=== PATIENT | male | born 1950 | race Caucasian/White ===

== ENCOUNTER → 2020-02-26 08:20 | Outpatient (BNVA) | payer MEDICARE, OTHER, SELFPAY | PROVIDERS: PCP Internal Medicine; Visit Provider Anesthesiology | DX: G89.4 Chronic pain syndrome (principal); M75.121 Complete rotator cuff tear or rupture of right shoulder, not specified as traumatic; M19.011 Primary osteoarthritis, right shoulder; M47.812 Spondylosis without myelopathy or radiculopathy, cervical region; Z79.891 Long term (current) use of opiate analgesic | CPT/HCPCS: 99212 ==

== ENCOUNTER 2020-05-29 08:06 | Outpatient (REF) | payer MEDICARE, OTHER, SELFPAY ==
[2020-05-29 11:42] LABS: Alanine Aminotransferase 31 U/L (0-40); Anion Gap 15 (12-20); Aspartate Amino Transferase 24 U/L (5-37); Blood Urea Nitrogen 21 mg/dL (9-16); Calcium 9.1 mg/dL (8.4-10.2); Carbon Dioxide 27 mmol/L (22-29); Chloride 105 mmol/L (96-108); Cholesterol 148 mg/dL; Estimated Glomerular Filt Rate > 60; Glucose Fasting 89 mg/dL (60-99); HDL Cholesterol 46 mg/dL; LDL Cholesterol Calculated 71 mg/dl; Potassium 4.1 mmol/L (3.3-5.1); Sodium 143 mmol/L (135-145); Triglycerides 155 mg/dL
[2020-05-29 12:09] LABS: Free T4 (Free Thyroxine) 0.97 ng/dL (0.71-1.85); Thyroid Stimulating Hormone 2.42 uIU/mL (0.32-4.0)
== END 2020-05-29 08:07 | disposition home or self-care (01) ==
LOC: HO.HMGCLDS 08:06
PROVIDERS: PCP Internal Medicine; Visit Provider Internal Medicine
DX: E78.5 Hyperlipidemia, unspecified (principal); I10 Essential (primary) hypertension; E03.9 Hypothyroidism, unspecified
CPT/HCPCS: 36415; 80048; 80061; 84439; 84443; 84450; 84460

== ENCOUNTER 2020-12-09 06:59 | Outpatient (REF) | payer MEDICARE, OTHER, SELFPAY ==
[2020-12-09 11:40] LABS: Alanine Aminotransferase 31 U/L (0-40); Anion Gap 11 (12-20); Aspartate Amino Transferase 23 U/L (5-37); Blood Urea Nitrogen 22 mg/dL (9-16); Calcium 9.3 mg/dL (8.4-10.2); Carbon Dioxide 27 mmol/L (22-29); Chloride 108 mmol/L (96-108); Cholesterol 157 mg/dL; Estimated Glomerular Filt Rate > 60; Glucose Fasting 104 mg/dL (60-99); HDL Cholesterol 50 mg/dL; LDL Cholesterol Calculated 83 mg/dl; Potassium 4.2 mmol/L (3.3-5.1); Sodium 142 mmol/L (135-145); Triglycerides 123 mg/dL
[2020-12-09 12:03] LABS: Free T4 (Free Thyroxine) 0.88 ng/dL (0.71-1.85); Thyroid Stimulating Hormone 3.14 uIU/mL (0.32-4.0); Vitamin D 25-OH Total 35.9 ng/mL (>30)
== END 2020-12-09 07:00 | disposition home or self-care (01) ==
LOC: HO.HMGCLDS 06:59
PROVIDERS: PCP Internal Medicine; Visit Provider Internal Medicine
DX: E03.9 Hypothyroidism, unspecified (principal); E78.5 Hyperlipidemia, unspecified; I10 Essential (primary) hypertension; M19.011 Primary osteoarthritis, right shoulder; M47.812 Spondylosis without myelopathy or radiculopathy, cervical region; M75.121 Complete rotator cuff tear or rupture of right shoulder, not specified as traumatic
CPT/HCPCS: 36415; 80048; 80061; 82306; 84439; 84443; 84450; 84460

== ENCOUNTER 2021-02-16 07:39 | Outpatient (REF) | payer MEDICARE, OTHER, SELFPAY ==
[2021-02-16 12:36] LABS: Free T4 (Free Thyroxine) 1.01 ng/dL (0.71-1.85); Thyroid Stimulating Hormone 1.27 uIU/mL (0.32-4.0)
[2021-02-17 18:18] LABS: Thyroid Peroxidase Antibodies 2 IU/mL (<9)
== END 2021-02-16 07:40 | disposition home or self-care (01) ==
LOC: HO.HMGCLDS 07:39
PROVIDERS: PCP Internal Medicine; Visit Provider Internal Medicine
DX: E03.9 Hypothyroidism, unspecified (principal)
CPT/HCPCS: 36415; 84439; 84443; 86376

== ENCOUNTER 2021-02-24 13:43 | Outpatient (REF) | payer MEDICARE, OTHER, SELFPAY ==
--- NOTE | ~2021-02-24 | US_ITS ---
EXAMINATION: US RETROPERITONEAL LIMITED (RENAL ONLY) CLINICAL INFORMATION: Cyst of left kidney, acquired. COMPARISON: CT abdomen and pelvis 12/11/2019 TECHNIQUE: Routine dean-scale imaging of kidneys is performed. FINDINGS: RIGHT KIDNEY: 11.1 x 4.8 x 6.2 cm (SAG x AP x TRV). The kidney is normal in size, contour, and echogenicity. Renal cortical thickness is normal. No calculi or focal parenchymal lesions. No hydronephrosis. There is anechoic cyst in the lower pole with septation measuring 3.5 x 3.8 x 3.0 cm suggestive of complex cyst. There is adjacent simple cyst measuring 2.5 x 2.8 x 2.4 cm. LEFT KIDNEY: 11.0 x 4.7 x 5.4 cm. cm (SAG x AP x TRV). The kidney is normal in size, contour, and echogenicity. Renal cortical thickness is normal. No calculi or focal parenchymal lesions. No hydronephrosis. Previously seen cyst is not visualized at this time. US/US renal BI IMPRESSION: Larger complex septated cyst and a smaller simple cyst in the lower pole right kidney. They were visualized on the previous CT abdomen exam 12/11/2019. The complex cyst appears slightly larger. There are no echogenic stones or hydronephrosis in either kidney.
== END 2021-02-24 13:44 | disposition home or self-care (01) ==
LOC: HO.HMGCX 13:43
PROVIDERS: PCP Internal Medicine; Visit Provider Urology
DX: N28.1 Cyst of kidney, acquired (principal)
CPT/HCPCS: 76775

== ENCOUNTER → 2021-03-17 12:58 | Outpatient (BNVA) | payer MEDICARE, OTHER, SELFPAY | PROVIDERS: PCP Internal Medicine; Visit Provider Urology | DX: N40.1 Benign prostatic hyperplasia with lower urinary tract symptoms (principal); R39.14 Feeling of incomplete bladder emptying; N13.8 Other obstructive and reflux uropathy; N28.1 Cyst of kidney, acquired | CPT/HCPCS: 51798; 99212 ==

== ENCOUNTER 2021-04-05 16:58 | Outpatient (REF) | payer MEDICARE, OTHER, SELFPAY ==
--- NOTE | ~2021-04-05 | XR_ITS ---
EXAMINATION: XR CHEST CLINICAL INFORMATION: Cough. COMPARISON: None TECHNIQUE: 2 views of the chest were obtained. FINDINGS: Large rounded masslike density in the anterior left chest. This measures about 10 cm superior-inferior. This partially silhouettes the left cardiac heart border. CT chest with contrast recommended for follow-up. Right lung is normally aerated. No pleural effusion or pneumothorax. No pulmonary vascular congestion. XR/XR chest 2V IMPRESSION: Large rounded masslike density anterior left chest. CT chest with contrast recommended for follow-up.
[2021-04-05 19:50] LABS: Influenza A PCR NEGATIVE (Negative); Influenza B PCR NEGATIVE (Negative); Resp Syncy Virus RNA Qual PCR POSITIVE (Negative); SARS COV2 PCR INHOUSE NEGATIVE (Negative)
== END 2021-04-05 16:59 | disposition home or self-care (01) ==
LOC: HO.HMGCX 16:58
PROVIDERS: PCP Internal Medicine; Visit Provider Physician Assistant Medical
DX: Z20.822 Contact with and (suspected) exposure to COVID-19 (principal); R05.9 Cough, unspecified; J06.9 Acute upper respiratory infection, unspecified
CPT/HCPCS: 0241U; 71046

== ENCOUNTER 2021-05-17 10:08 | Outpatient (REF) | payer MEDICARE, OTHER, SELFPAY ==
[2021-05-17 11:54] LABS: Cholesterol 141 mg/dL; HDL Cholesterol 43 mg/dL; LDL Cholesterol Calculated 67 mg/dl; Triglycerides 158 mg/dL
[2021-05-17 12:11] LABS: Free T4 (Free Thyroxine) 1.16 ng/dL (0.71-1.85)
== END 2021-05-17 10:09 | disposition home or self-care (01) ==
LOC: HO.HMGCLDS 10:08
PROVIDERS: Visit Provider Internal Medicine
DX: E78.5 Hyperlipidemia, unspecified (principal); E03.9 Hypothyroidism, unspecified; I10 Essential (primary) hypertension
CPT/HCPCS: 36415; 80061; 84439; 84443

== ENCOUNTER 2021-12-08 06:41 | Outpatient (REF) | payer MEDICARE, OTHER, SELFPAY ==
[2021-12-08 11:38] LABS: Alanine Aminotransferase 21 U/L (0-40); Anion Gap 15 (12-20); Aspartate Amino Transferase 26 U/L (5-37); Blood Urea Nitrogen 17 mg/dL (9-16); Calcium 9.3 mg/dL (8.4-10.2); Carbon Dioxide 26 mmol/L (22-29); Chloride 106 mmol/L (96-108); Cholesterol 187 mg/dL; Estimated Glomerular Filt Rate > 60; Glucose Fasting 105 mg/dL (60-99); HDL Cholesterol 52 mg/dL; LDL Cholesterol Calculated 109 mg/dl; Potassium 4.6 mmol/L (3.3-5.1); Sodium 142 mmol/L (135-145); Triglycerides 132 mg/dL
[2021-12-08 12:10] LABS: Free T4 (Free Thyroxine) 0.96 ng/dL (0.71-1.85); Vitamin D 25-OH Total 25.2 ng/mL (>30)
== END 2021-12-08 06:42 | disposition home or self-care (01) ==
LOC: HO.HMGCLDS 06:41
PROVIDERS: PCP Internal Medicine; Visit Provider Internal Medicine
DX: E03.9 Hypothyroidism, unspecified (principal); E78.5 Hyperlipidemia, unspecified; I10 Essential (primary) hypertension
CPT/HCPCS: 36415; 80048; 80061; 82306; 84439; 84443; 84450; 84460

== ENCOUNTER → 2022-03-16 10:31 | Outpatient (BNVA) | payer MEDICARE, OTHER, SELFPAY | PROVIDERS: PCP Internal Medicine; Visit Provider Urology | DX: N40.1 Benign prostatic hyperplasia with lower urinary tract symptoms (principal); R39.14 Feeling of incomplete bladder emptying; N28.1 Cyst of kidney, acquired | CPT/HCPCS: 51798; 99212 ==

== ENCOUNTER 2022-07-04 14:18 | Outpatient (REF) | payer MEDICARE, OTHER, SELFPAY ==
[2022-07-04 17:22] LABS: Prostate Specific Antigen 3.07 ng/mL (<0.05-4.0)
== END 2022-07-04 14:19 | disposition home or self-care (01) ==
LOC: HO.HMGCLDS 14:18
PROVIDERS: PCP Internal Medicine; Visit Provider Urology
DX: R97.20 Elevated prostate specific antigen [PSA] (principal); Z12.5 Encounter for screening for malignant neoplasm of prostate
CPT/HCPCS: 36415; 84153

== ENCOUNTER → 2022-07-15 10:13 | Outpatient (BNVA) | payer MEDICARE, OTHER, SELFPAY | PROVIDERS: PCP Internal Medicine; Visit Provider Urology | DX: R97.20 Elevated prostate specific antigen [PSA] (principal) | CPT/HCPCS: Q3014 ==

== ENCOUNTER 2022-12-29 08:33 | Outpatient (REF) | payer MEDICARE, OTHER, SELFPAY ==
[2022-12-29 12:26] LABS: Prostate Specific Antigen 3.01 ng/mL (<0.05-4.0)
== END 2022-12-29 08:34 | disposition home or self-care (01) ==
LOC: HO.HMGCLDS 08:33
PROVIDERS: PCP Internal Medicine; Visit Provider Urology
DX: R97.20 Elevated prostate specific antigen [PSA] (principal); Z12.5 Encounter for screening for malignant neoplasm of prostate
CPT/HCPCS: 36415; 84153

== ENCOUNTER 2023-01-12 11:23 | Outpatient (AMB) | payer MEDICARE, OTHER, SELFPAY ==
--- NOTE | 2023-01-12 11:52 | MHC.OFFVIS ---
Intake Intake Visit Reasons: 6m/PSA(Elevated psa/BPH)(set) Intake Note: Patient is present for PSA Follow Up Results: 07/04/22: PSA: 3.07 Urology Med: Finasteride, Tamsulosin Antibiotic Allergy: Amoxicillin Blood Thinner: None PVR:0 Allergies amoxicillin [AMOXICILLIN] Allergy (Mild, Verified 01/12/23 11:53) HIVES, hiives Medication List - Last Reconciled 01/12/23 by Raghav Atkinson MD amlodipine 5 mg PO DAILY carvedilol 6.25 mg PO BID finasteride 5 mg PO DAILY 90 days immune globul G-gly-IgA avg 46 20 gram/200 mL (10 %) (Gamunex-C) mL IV levothyroxine 150 mcg PO DAILY lifitegrast 5% (Xiidra) 1 drp ophthalmic (eye) BID lisinopril 40 mg PO DAILY lorazepam 0.5 mg PO DAILY PRN oxycodone 5 mg PO BID PRN simvastatin 20 mg PO BEDTIME tamsulosin 0.4 mg PO DAILY valacyclovir 500 mg PO BID HPI HPI Comments History of Present Illness Details Vineet is a very pleasant male. He is a patient of Dr Dunlap. He is seen for the following urologic conditions. - renal cyst - lower urinary tract symptoms PSA stabilized 3.0 Continue 6 month follow-up Happy with urinary performance - minimal nocturia, minimal urge, effective stream Lower Urinary Tract Symptoms:? Helpful with alpha-riana and finasteride ? Current visit is for?further evaluation of, lower urinary tract symptoms, predominate obstructive symptoms.? Current treatment includes?fluid restriction, finasteride, tamsulosin ? Prostate Symptom Score?05/30 , Moderate (-), Bother 3.? Symptoms include?05/30 , incomplete emptying, weak stream, nocturia (>2), and are progressing.? PSA?03/28 4.04, 03/01 5.8, 07/31 3.1, 12/31 3.0 - CATIA 2+ soft ? Testing at next visit will include?bladder scan in PSA Renal lesion:? Brother renal ca age 72 ?[address] scan ?Cyst stable in kidney ?Enlarged prostate. ? They present for ?evaluation of renal mass, right side, complex cyst.? The renal mass was diagnosed?incidentally, during evaluation for, GI symptoms ? Imaging included?03/28 , a CT (computed tomography) scan of the abdomen/pelvis, showing class II cyst(s), showing class II cyst(s), 3.1-5.9 in size right side ?11/27 , a CT (computed tomography) scan of the abdomen/pelvis cyst remains stable - 02/28 renal ultrasound 3 cm complex right renal cyst, 3 cm adjacent cyst. 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 of right shoulder Complete rotator cuff tear or rupture of right shoulder, not specified as traumatic Surgical History History of tonsillectomy History of hernia repair Family History Father Medical history non-contributory Mother Medical history non-contributory Social History Housing: House Alcohol intake: never Patient Tobacco Use Status: Former Tobacco user e-Cigarette/Vaping Use: Never Used service: No Current occupational status: retired Review of Systems Const Denies chills and Denies fever(s) Card Reports no additional complaints and Denies syncope Resp Denies cough GI Denies abdominal pain and Denies heartburn Reports as per HPI and Denies change in libido Neuro Denies syncope Psych Denies change in libido Endo Denies change in libido Physical Exam Const General: cooperative, healthy appearing, comfortable and no acute distress Orientation/consciousness: patient oriented x3 HEENT Face and sinus: Yes normal facial exam Mouth: moist mucous membranes Neck Neck: Yes normal visual inspection, Yes full ROM and Yes trachea midline Chest Chest palpation & inspection: normal inspection of the chest Resp Effort & Inspection: normal respiratory effort, able to speak in complete sentences and no respiratory distress GI Inspection: Yes normal to inspection Back/Spine/Pelvis Cervical Spine: normal cervical lordosis Thoracic/Lumbar Spine: thoracic and lumbar spine normal to inspection Skin General skin exam: no rashes or lesions noted Neuro General: patient oriented x3, gait normal, tone normal and moves all extremities Extrem General: Yes normal to inspection and Yes capillary refill normal Office Procedures Post Void Residual Post Residual Void Post Void Residual (PVR): 0 [id number] Void Residual by ultrasound Results AMB Urinalysis, Automated UA Leukoctes 0 Marta/uL Last Edit by DONI Pollack on 01/12/23 11:54 UA Nitrite Negative Last Edit by DONI Pollack on 01/12/23 11:54 UA Urobilinogen 0.2 mg/dL Last Edit by DONI Pollack on 01/12/23 11:54 UA Protein 0 mg/dL Last Edit by DONI Pollack on 01/12/23 11:54 UA pH 5.5 Last Edit by DONI Pollack on 01/12/23 11:54 UA Blood 0 Nicola/uL Last Edit by DONI Pollack on 01/12/23 11:54 UA Specific [place] 1.025 Last Edit by DONI Pollack on 01/12/23 11:54 UA Ketone Negative Last Edit by DONI Pollack on 01/12/23 11:54 UA Bilirubin 0 mg/dL Last Edit by DONI Pollack on 01/12/23 11:54 UA Glucose 0 mg/dL Last Edit by DONI Pollack on 01/12/23 11:54 Results Reviewed Results Reviewed: Laboratory Last Values Urine pH (Auto) 5.5 01/12/23 11:53 Specific [place] (Auto) 1.025 01/12/23 11:53 Urine Protein (Auto) 0 mg/dL 01/12/23 11:53 Glucose (UA)(Auto) 0 mg/dL 01/12/23 11:53 Urine Ketones (Auto) Negative 01/12/23 11:53 Urine Blood (Auto) 0 Nicola/uL 01/12/23 11:53 Urine Nitrite (Auto) Negative 01/12/23 11:53 Urine Bilirubin (Auto) 0 mg/dL 01/12/23 11:53 Urine Urobilinogen (Auto) 0.2 mg/dL 01/12/23 11:53 Leukocyte Esterase (Auto) 0 Marta/uL 01/12/23 11:53 Assessment & Plan Assessment & Plan (1) Elevated PSA: Code(s): R97.20 - Elevated prostate specific antigen [PSA] (2) Benign prostatic hyperplasia with lower urinary tract symptoms: Code(s): N40.1 - Benign prostatic hyperplasia with lower urinary tract symptoms Qualifiers: Lower urinary tract symptom detail: incomplete bladder emptying Qualified Code(s): N40.1 - Benign prostatic hyperplasia with lower urinary tract symptoms; R39.14 - Feeling of incomplete bladder emptying Plan Six month follow-up Orders: Orders AMB Urinalysis Automated Today Z13.9 - Encounter for screening, unspecified Prostate Specific Antigen 6 Months R97.20 - Elevated prostate specific antigen [PSA] AMB Post Void Residual by ultrasound Today N39.8 - Other specified disorders of urinary system Patient Instructions: Imaging studies, laboratory and physical exam results were discussed and reviewed in detail. No major barriers to patient understanding were identified. An opportunity to ask questions regarding the treatment plan was provided. All questions were answered. The patient expressed understanding and agreement with the above treatment plan. The patient is aware they should contact our office by phone for worsening of their current condition or the appearance of new urologic symptoms. Compliance is encouraged with any medications and followup testing that is ordered. It is a privilege to participate in the urologic care of your patient. If you have any questions or concerns regarding treatment for the above conditions, or other urologic issues, please do not hesitate to contact me. The office telephone contact is [phone]. This note is constructed using voice recognition software. While every effort has been made to ensure accuracy croze cutter errors may have been included. Yours sincerely, Dr Raghav Atkinson MD, [facility] - Urology Providers of Expert, Compassionate Care for the Genitourinary System Coding Level of Care Code Est Pt Level 3 (65455) Diagnoses Elevated PSA R97.20 Benign prostatic hyperplasia with incomplete bladder emptying N40.1; R39.14 Lower urinary tract symptom detail: incomplete bladder emptying CPT Codes Post Residual Void - PVR CPT Code: 34559-Nmmk Void Residual by ultrasound ([id number])
== END 2023-01-12 12:17 | disposition home or self-care (01) ==
PROVIDERS: PCP Internal Medicine; Visit Provider Urology
DX: R97.20 Elevated prostate specific antigen [PSA] (principal); N40.1 Benign prostatic hyperplasia with lower urinary tract symptoms; R39.14 Feeling of incomplete bladder emptying; Z13.9 Encounter for screening, unspecified
CPT/HCPCS: 99213

== ENCOUNTER → 2023-01-12 11:23 | Outpatient (BNVA) | payer MEDICARE, OTHER, SELFPAY | PROVIDERS: Visit Provider Urology | DX: R97.20 Elevated prostate specific antigen [PSA] (principal); N40.1 Benign prostatic hyperplasia with lower urinary tract symptoms; R39.14 Feeling of incomplete bladder emptying; N28.1 Cyst of kidney, acquired; Z79.899 Other long term (current) drug therapy | CPT/HCPCS: 51798; 81003; 99212 ==

== ENCOUNTER 2023-03-10 08:07 | Outpatient (AMB) | payer MEDICARE, OTHER, SELFPAY ==
--- NOTE | 2023-03-10 09:04 | AM.OFFWIN_ITS ---
Intake Vital Signs 03/10/23 09:09 Weight 206 lb BP 130/70 Blood Pressure Location Rt brachial Position Sitting Pulse 97 Pulse Source Pulse Oximeter Temp 96.9 F Temp Source Temporal Artery Scan Pulse Oximetry (%) 100 Oxygen Delivery Method Room Air Intake Visit Reasons: EP, chest congestion, cough (masked) Intake Note: Pt is here c/o chest congestion and cough for two weeks. Patient Tobacco Use Status: Former Tobacco user Allergies amoxicillin [AMOXICILLIN] Allergy (Mild, Verified 03/10/23 09:04) HIVES, hiives Do you need a note to return to daycare/school/sports/work: No HPI HPI Comments History of Present Illness Details This is a 72-year-old male who presents to the office today for sick visit. Patient complaining of chest congestion and cough x1 week in the setting of viral URI symptoms x2 weeks. patient states he started to develop viral URI symptoms such as congestion, rhinorrhea, headaches, sore throat, and myalgias. He then started to develop chest congestion and a productive cough with yellow sputum about 1 week ago. He denies any significant shortness of breath. He denies any chest pain. He denies any abdominal pain or nausea/vomiting / diarrhea. 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 of right shoulder Complete rotator cuff tear or rupture of right shoulder, not specified as traumatic Surgical History History of tonsillectomy History of hernia repair Family History Father Medical history non-contributory Mother Medical history non-contributory Social History Housing: House Alcohol intake: never Patient Tobacco Use Status: Former Tobacco user e-Cigarette/Vaping Use: Never Used service: No Current occupational status: retired Review of Systems Const All systems reviewed & are unremarkable except as noted in HPI and below Reports no additional complaints Eyes Reports no additional complaints ENT Reports no additional complaints Card Reports no additional complaints Resp Reports no additional complaints GI Reports no additional complaints Reports no additional complaints Musc Reports no additional complaints Skin/Breast Reports system reviewed and no additional complaints, except as documented Neuro Reports no additional complaints Psych Reports no additional complaints Endo Reports no additional complaints Gaurav/Lymph Reports no additional complaints Aller/Immun Reports no additional complaints Physical Exam Vital Signs: Last Vital Signs Temp 96.9 F 03/10/23 09:09 Pulse 97 03/10/23 09:09 BP 130/70 03/10/23 09:09 Pulse Ox 100 03/10/23 09:09 Oxygen Delivery Method Room Air 03/10/23 09:09 Const Other: Vital signs reviewed. Constitutional: Non-toxic appearing. No acute distress. Well-developed and well-nourished. HEENT: Normocephalic and atraumatic. Tympanic membranes without erythema, edema, or bulging bilaterally. External auditory canals without erythema or edema bilaterally. Moist mucous membranes. No pharyngeal erythema or exudates. Skin: Warm and dry. No rashes or lesions noted. Neck: Full and painless range of motion. No cervical lymphadenopathy. Cardio: Regular rate and rhythm. No murmurs, gallops, or rubs. No lower extremity edema. No JVD. Pulmonary: No respiratory distress. No accessory muscle usage. Clear to aus cultation bilaterally without wheezing, crackles, or rhonchi. Gastrointestinal: Soft, nontender, and nondistended in all 4 quadrants. Normoactive bowel sounds in all 4 quadrants. Genitourinary: No CVA tenderness. Musculoskeletal: Normal range of motion in joints throughout the body. No deformity or other signs of injury. Neuro: Alert and oriented x4. Cranial nerves 2-12 grossly intact. No focal deficits appreciated. Psych: Normal mood and affect. Assessment & Plan Assessment & Plan (1) Viral URI with cough: Code(s): J06.9 - Acute upper respiratory infection, unspecified Plan: This is a 72-year-old male who presented to the office complaining of viral URI symptoms with chest congestion and cough x 2 weeks. Patient presenting with signs and symptoms most consistent with acute respiratory tract infection. Recommended symptomatic management including rest, increased fluids, advil/tylenol for pain/fever as long as no medical contraindications, mucinex, and over the counter throat lozenges/decongestants. Given the patient is immunosuppressed and receives IVIG infusions, I have made the decision to treat with p.o. azithromycin 500 mg today followed by 250 mg daily x4 days. Patient was offered a chest x-ray prior to antibiotic administration; however, he states he is due for a CT chest in less than 1 month and would like to avoid the radiation if possible. I believe that treating with antibiotics is feasible in this case given productive cough with yellow sputum and immunosuppressed state. Patient does not have any expiratory wheezing to suggest acute bronchitis and he denies any shortness of breath. I do not believe that steroids are warranted at this time. Patient advised to follow up here or go to the emergency room for worsening/persistent symptoms. Patient verbalized understanding and is agreeable with the plan. Coding Level of Care Code Est Pt Level 3 (54595) Diagnoses Viral URI with cough J06.9
[2023-03-10 09:09] VITALS: BP 130/70; PULSE 97; TEMP 36.1; O2SAT 100
== END 2023-03-10 09:29 | disposition home or self-care (01) ==
PROVIDERS: PCP Internal Medicine; Visit Provider Physician Assistant Medical
DX: J06.9 Acute upper respiratory infection, unspecified (principal)
CPT/HCPCS: 99213

== ENCOUNTER 2023-06-19 08:07 | Outpatient (AMB) | payer MEDICARE, OTHER, SELFPAY ==
[2023-06-19 08:22] VITALS: BP 160/90; PULSE 104; TEMP 36.8; O2SAT 98; BMI 31.9
--- NOTE | 2023-06-19 08:22 | MHC.OFFWIV ---
Intake Vital Signs 06/19/23 08:22 Height 5 ft 7 in Weight 204 lb BMI 31.9 BP 160/90 H Blood Pressure Location Lt brachial Position Sitting Pulse 104 H Pulse Source Pulse Oximeter Temp 98.3 F Temp Source Oral Pulse Oximetry (%) 98 Intake Visit Reasons: EP ?Sinus Infection Intake Note: pt is here for c/o possible sinus infection Patient Tobacco Use Status: Former Tobacco user Allergies amoxicillin [AMOXICILLIN] Allergy (Mild, Verified 06/19/23 08:22) HIVES, hiives Do you need a note to return to daycare/school/sports/work: No HPI EP ?Sinus Infection HPI Details Patient presents for a sick visit. Reporting symptoms of sinus congestion, sore throat and difficulty swallowing. Low-grade fever. No family member is sick. No recent travel. Patient reports symptoms of malaise and fatigue. Patient had a thymus gland removed 2 years ago. He is on IV IG infusions once a month. [facility] Medical History Vitamin D deficiency Acquired hypogammaglobulinemia Thymoma Good syndrome Renal cyst Benign prostatic hyperplasia with lower urinary tract symptoms Feeling of incomplete bladder emptying Incomplete emptying of bladder Weak urinary stream Dyslipidemia Essential hypertension Acquired hypothyroidism Chronic pain syndrome Spondylosis of cervical spine without myelopathy Osteoarthritis of right shoulder Complete rotator cuff tear or rupture of right shoulder, not specified as traumatic Surgical History History of tonsillectomy History of hernia repair Family History Father Medical history non-contributory Mother Medical history non-contributory Social History Housing: House Alcohol intake: never Patient Tobacco Use Status: Former Tobacco user e-Cigarette/Vaping Use: Never Used service: No Current occupational status: retired Physical Exam Vital Signs: Last Vital Signs Temp 98.3 F 06/19/23 08:22 Pulse 104 H 06/19/23 08:22 BP 160/90 H 06/19/23 08:22 Pulse Ox 98 06/19/23 08:22 BMI result Body Mass Index 31.9 Const General: cooperative and healthy appearing Nutritional Appearance: well nourished Orientation/consciousness: patient oriented x3 Limitations: no limitations HEENT Head: Yes normal to inspection Eyes General: appearance normal, both eyes and all related structures Neck Neck: Yes normal visual inspection Chest Chest palpation & inspection: normal palpation of entire chest wall Resp Effort & Inspection: normal respiratory effort Neuro General: patient oriented x3 Assessment & Plan Assessment & Plan (1) Upper respiratory tract infection: Code(s): J06.9 - Acute upper respiratory infection, unspecified Plan: Antibiotics ordered. Increase fluid intake. Tylenol for aches and pains. If symptoms worsen, follow-up here for a recheck. Coding Level of Care Code Est Pt Level 3 (53396) Diagnoses Upper respiratory tract infection J06.9
== END 2023-06-19 09:33 | disposition home or self-care (01) ==
PROVIDERS: PCP Internal Medicine; Visit Provider Internal Medicine
DX: J06.9 Acute upper respiratory infection, unspecified (principal)
CPT/HCPCS: 99213

== ENCOUNTER 2023-07-04 07:29 | Outpatient (REF) | payer MEDICARE, OTHER, SELFPAY ==
[2023-07-04 13:02] LABS: Prostate Specific Antigen 2.92 ng/mL (<0.05-4.0)
== END 2023-07-04 07:30 | disposition home or self-care (01) ==
LOC: HO.HMGCLDS 07:29
PROVIDERS: PCP Internal Medicine; Visit Provider Urology
DX: Z12.5 Encounter for screening for malignant neoplasm of prostate (principal); R97.20 Elevated prostate specific antigen [PSA]
CPT/HCPCS: 36415; 84153

== ENCOUNTER 2023-07-14 09:12 | Outpatient (AMB) | payer MEDICARE, OTHER, SELFPAY ==
--- NOTE | 2023-07-14 09:12 | A.OFFVIS_ITS ---
Intake Intake Visit Reasons: 6M PSA(set)Confirmed Intake Note: Patient is Present for Telephone Follow Up For Urology Med: Finasteride, Tamsulosin Antibiotic Allergy: Amoxicillin Blood Thinner: None Pharmacy: [facility] Allergies amoxicillin [AMOXICILLIN] Allergy (Mild, Verified 07/14/23 09:16) HIVES, hiives Medication List - Last Reconciled 07/14/23 by Raghav Atkinson MD amlodipine 5 mg PO DAILY azithromycin take 500 mg today (day 1), then 250 mg for 4 days (days 2-5) PO carvedilol 6.25 mg PO BID finasteride 5 mg PO DAILY 90 days immune globul G-gly-IgA avg 46 20 gram/200 mL (10 %) (Gamunex-C) mL IV levothyroxine 150 mcg PO DAILY lisinopril 40 mg PO DAILY lorazepam 0.5 mg PO DAILY PRN oxycodone 5 mg PO BID PRN simvastatin 20 mg PO BEDTIME tamsulosin 0.4 mg PO DAILY valacyclovir 500 mg PO BID HPI HPI Comments History of Present Illness Details Vineet is a very pleasant male. He is a patient of Dr Dunlap. He is seen for the following urologic conditions. - renal cyst - lower urinary tract symptoms Telemedicine Evaluation 15 min Consultation [employer] Video attempted PSA stabilized 3.0 Continue 6 month follow-up Happy with urinary performance - minimal nocturia, minimal urge, effective stream Try coming off tamsulosin Would plan on reducing finasteride in 6 months Lower Urinary Tract Symptoms:? Helpful with alpha-riana and finasteride ? Current visit is for?further evaluation of, lower urinary tract symptoms, predominate obstructive symptoms.? Current treatment includes?fluid restriction, finasteride, tamsulosin ? Prostate Symptom Score?2/20 , Moderate (9-19), Bother 3.? Symptoms include?2/20 , incomplete emptying, weak stream, nocturia (>2), and are progressing.? PSA?03/28 4.04, 03/01 5.8, 07/31 3.1, 12/31 3.0, 07/01 2.9 - CATIA 2+ soft ? Testing at next visit will include?bladder scan in PSA Renal lesion:? Brother renal ca age [address] ?[address] scan ?Cyst stable in kidney ?Enlarged prostate. ? They present for ?evaluation of renal mass, right side, complex cyst.? The renal mass was diagnosed?incidentally, during evaluation for, GI symptoms ? Imaging included?03/28 , a CT (computed tomography) scan of the abdomen/pelvis, showing class II cyst(s), showing class II cyst(s), 3.1-5.9 in size right side ?11/27 , a CT (computed tomography) scan of the abdomen/pelvis cyst remains stable - 02/28 renal ultrasound 3 cm complex right renal cyst, 3 cm adjacent cyst. 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 of right shoulder Complete rotator cuff tear or rupture of right shoulder, not specified as traumatic Surgical History History of tonsillectomy History of hernia repair Family History Father Medical history non-contributory Mother Medical history non-contributory Social History Housing: House Alcohol intake: never Patient Tobacco Use Status: Former Tobacco user e-Cigarette/Vaping Use: Never Used service: No Current occupational status: retired Review of Systems Const All systems reviewed & are unremarkable except as noted in HPI and below Reports no additional complaints Resp Reports no additional complaints GI Reports no additional complaints Reports as per HPI Musc Reports no additional complaints Physical Exam Telemedicine evaluation Appropriate responses Regular breathing rate and rhythm HEENT Head: Yes normal to inspection Ears: hearing grossly normal bilaterally Eyes General: appearance normal, both eyes and all related structures Neck Neck: Yes normal visual inspection Chest Chest palpation & inspection: normal inspection of the chest Resp Effort & Inspection: normal respiratory effort and able to speak in complete sentences Assessment & Plan Assessment & Plan (1) Elevated PSA: Code(s): R97.20 - Elevated prostate specific antigen [PSA] (2) Benign prostatic hyperplasia with lower urinary tract symptoms: Code(s): N40.1 - Benign prostatic hyperplasia with lower urinary tract symptoms Qualifiers: Lower urinary tract symptom detail: incomplete bladder emptying Qualified Code(s): N40.1 - Benign prostatic hyperplasia with lower urinary tract symptoms; R39.14 - Feeling of incomplete bladder emptying Plan Six-month follow-up PSA office Orders: Orders Prostate Specific Antigen 6 Months R97.20 - Elevated prostate specific antigen [PSA] Patient Instructions: Imaging studies, laboratory and physical exam results were discussed and reviewed in detail. No major barriers to patient understanding were identified. An opportunity to ask questions regarding the treatment plan was provided. All questions were answered. The patient expressed understanding and agreement with the above treatment plan. The patient is aware they should contact our office by phone for worsening of their current condition or the appearance of new urologic symptoms. Compliance is encouraged with any medications and followup testing that is ordered. It is a privilege to participate in the urologic care of your patient. If you have any questions or concerns regarding treatment for the above conditions, or other urologic issues, please do not hesitate to contact me. The office telephone contact is [phone]. This note is constructed using voice recognition software. While every effort has been made to ensure accuracy accounts receivable manager errors may have been included. Yours sincerely, Dr Raghav Atkinson MD, [facility] - Urology Providers of Expert, Compassionate Care for the Genitourinary System Telehealth Telehealth Location of provider rendering services: practice address Location of patient: address on file Patient Identification confirmed using: Name, : Yes Telehealth method: video Patient verbally consented to treatment: Yes Patient verbally consented to billing insurance company: Yes Patient informed of any privacy concerns related to visit: Yes Coding Level of Care Code Tele Est Pt Level 3 (33887) Diagnoses Elevated PSA R97.20 Benign prostatic hyperplasia with incomplete bladder emptying N40.1; R39.14 Lower urinary tract symptom detail: incomplete bladder emptying
== END 2023-07-14 10:17 | disposition home or self-care (01) ==
LOC: HO.HUSH 09:12
PROVIDERS: PCP Internal Medicine; Visit Provider Urology
DX: R97.20 Elevated prostate specific antigen [PSA] (principal); N40.1 Benign prostatic hyperplasia with lower urinary tract symptoms; R39.14 Feeling of incomplete bladder emptying
CPT/HCPCS: 99213

== ENCOUNTER → 2023-07-14 09:12 | Outpatient (BNVA) | payer MEDICARE, OTHER, SELFPAY | PROVIDERS: PCP Internal Medicine; Visit Provider Urology ==

== ENCOUNTER 2024-01-05 07:43 | Outpatient (REF) | payer MEDICARE, OTHER, SELFPAY ==
[2024-01-05 10:46] LABS: Prostate Specific Antigen 1.77 ng/mL (<0.05-4.0)
== END 2024-01-05 07:44 | disposition home or self-care (01) ==
LOC: HO.HMGCLDS 07:43
PROVIDERS: PCP Internal Medicine; Visit Provider Urology
DX: R97.20 Elevated prostate specific antigen [PSA] (principal); Z12.5 Encounter for screening for malignant neoplasm of prostate
CPT/HCPCS: 36415; 84153

== ENCOUNTER 2024-01-12 11:23 | Outpatient (AMB) | payer MEDICARE, OTHER, SELFPAY ==
--- NOTE | 2024-01-12 11:47 | A.OFFVIS_ITS ---
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 He is a patient of Dr Dunlap. He is seen for the following urologic conditions. - renal cyst - lower urinary tract symptoms PSA 1.8 Continue 6 month follow-up Happy with urinary performance - minimal nocturia, minimal urge, effective stream Try coming off tamsulosin Would plan on reducing finasteride in 6 months Lower Urinary Tract Symptoms:? Helpful with alpha-riana and finasteride ? Current visit is for?further evaluation of, lower urinary tract symptoms, predominate obstructive symptoms.? Current treatment includes?fluid restriction, finasteride, tamsulosin ? Prostate Symptom Score?05/30 , Moderate (-), Bother 3.? Symptoms include?05/30 , incomplete emptying, weak stream, nocturia (>2), and are progressing.? PSA?03/28 4.04, 03/01 5.8, 07/31 3.1, 12/31 3.0, 07/01 2.9, 01/31 1.8 - CATIA 2+ soft ? Testing at next visit will include?bladder scan in PSA Renal lesion:? Brother renal ca age 72 ?Review of [address] scan ?Cyst stable in kidney ?Enlarged prostate. ? They present for ?evaluation of renal mass, right side, complex cyst.? The renal mass was diagnosed?incidentally, during evaluation for, GI symptoms ? Imaging included?03/28 , a CT (computed tomography) scan of the abdomen/pelvis, showing class II cyst(s), showing class II cyst(s), 3.1-5.9 in size right side ?11/27 , a CT (computed tomography) scan of the abdomen/pelvis cyst remains stable - 02/28 renal ultrasound 3 cm complex right renal cyst, 3 cm adjacent cyst. 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 of right shoulder Complete rotator cuff tear or rupture of right shoulder, not specified as traumatic Surgical History History of tonsillectomy History of hernia repair Family History Father Medical history non-contributory Mother Medical history non-contributory Social History Housing: House Alcohol intake: never Patient Tobacco Use Status: Former Tobacco user e-Cigarette/Vaping Use: Never Used service: No Current occupational status: retired Review of Systems Const Denies chills and Denies fever(s) Card Reports no additional complaints and Denies syncope Resp Denies cough GI Denies abdominal pain and Denies heartburn Reports as per HPI and Denies change in libido Neuro Denies syncope Psych Denies change in libido Endo Denies change in libido Physical Exam Const General: cooperative, healthy appearing, comfortable and no acute distress Orientation/consciousness: patient oriented x3 HEENT Face and sinus: Yes normal facial exam Mouth: moist mucous membranes Neck Neck: Yes normal visual inspection, Yes full ROM and Yes trachea midline Chest Chest palpation & inspection: normal inspection of the chest Resp Effort & Inspection: normal respiratory effort, able to speak in complete sentences and no respiratory distress GI Inspection: Yes normal to inspection Back/Spine/Pelvis Cervical Spine: normal cervical lordosis Thoracic/Lumbar Spine: thoracic and lumbar spine normal to inspection Skin General skin exam: no rashes or lesions noted Neuro General: patient oriented x3, gait normal, tone normal and moves all extremities Extrem General: Yes normal to inspection and Yes capillary refill normal Assessment & Plan Assessment & Plan (1) Incomplete emptying of bladder: Code(s): R33.9 - Retention of urine, unspecified Category: Medical (2) Elevated PSA: Code(s): R97.20 - Elevated prostate specific antigen [PSA] Category: Medical (3) Renal cyst: Code(s): N28.1 - Cyst of kidney, acquired Category: Medical Plan Six-month follow-up PSA Orders: Orders Prostate Specific Antigen 6 Months R97.20 - Elevated prostate specific antigen [PSA] Patient Instructions: Imaging studies, laboratory and physical exam results were discussed and reviewed in detail. No major barriers to patient understanding were identified. An opportunity to ask questions regarding the treatment plan was provided. All questions were answered. The patient expressed understanding and agreement with the above treatment plan. The patient is aware they should contact our office by phone for worsening of their current condition or the appearance of new urologic symptoms. Compliance is encouraged with any medications and followup testing that is ordered. It is a privilege to participate in the urologic care of your patient. If you have any questions or concerns regarding treatment for the above conditions, or other urologic issues, please do not hesitate to contact me. The office telephone contact is [phone]. This note is constructed using voice recognition software. While every effort has been made to ensure accuracy acute care nursing assistant errors may have been included. Yours sincerely, Dr Raghav Atkinson MD, [facility] - Urology Providers of Expert, Compassionate Care for the Genitourinary System Coding Level of Care Code Est Pt Level 3 (14580) Diagnoses Incomplete emptying of bladder R33.9 Elevated PSA R97.20 Renal cyst N28.1
== END 2024-01-12 12:32 | disposition home or self-care (01) ==
PROVIDERS: PCP Internal Medicine; Visit Provider Urology
DX: R33.9 Retention of urine, unspecified (principal); R97.20 Elevated prostate specific antigen [PSA]; N28.1 Cyst of kidney, acquired
CPT/HCPCS: 99213

== ENCOUNTER → 2024-01-12 11:23 | Outpatient (BNVA) | payer MEDICARE, OTHER, SELFPAY | PROVIDERS: PCP Internal Medicine; Visit Provider Urology | DX: N28.1 Cyst of kidney, acquired (principal); R33.9 Retention of urine, unspecified; R97.20 Elevated prostate specific antigen [PSA] | CPT/HCPCS: 99212 ==

== ENCOUNTER 2024-07-08 10:17 | Outpatient (REF) | payer MEDICARE, OTHER, SELFPAY ==
--- OUTSIDE RECORDS SUMMARY | 2024-07-08 11:29 | XMS_ITS | Continuity of Care Document ---
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 It does not include entries that were removed or entered in error. 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) Active Condition Dec 26 9 Entered By: DANIELITO SHAH Comment: from injury [place] in [employer] [facility] Diverticulosis Active Condition Apr 112017 Entered By: DANIELITO SHAH Comment: colonoscopy 2016 no polyps [place] Dysthymia * (ICD-9-CM 311./300.4) Active Condition [facility] Elevated PSA Active Condition [facility] Essential hypertension Active Condition [place] Hyperlipidemia * (ICD-9-CM 272.4) Active Condition [facility] Hypertrophy (Benign) of Prostate without Urinary obstruction Active Condition [facility] Hypothyroidism Active Condition [facility] Keratoconjunctivitis sicca, not specified as Sjogren's (ICD-9-CM 370.33) Active Condition [facility] Mixed hyperlipidaemia Active Condition [facility] Neck pain Active Condition [place] 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 [place] Obesity (SCT 127388319) Active Condition [place] Renal cyst Active Condition Sep 15 Entered By: DANIELITO SHAH Comment: benign appearing seen on 12/2019 ct abd/pelvis scanned into vista with 02/2019 ultrasoun [place] Shoulder pain Active Condition Sep Entered By: DANIELITO SHAH Comment: mri right shoulder 11/2019 scanned into [facility] imaging [place] Tobacco Use Disorder, Remission Active Condition Feb 26, 2007 Entered By: DANIELITO SHAH Comment: quit in 2003 [facility] Diagnosis: ICD-10-CM F54 Psych & behavrl factors assoc w disord or dis classd elswhr Active Diagnosis [facility] Diagnosis: ICD-10-CM G89.4 Chronic pain syndrome Active Diagnosis [facility] Diagnosis: ICD-10-CM M25.511 Pain in right shoulder Active Diagnosis [facility] Diagnosis: ICD-10-CM D38.4 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 [place] Diagnosis: ICD-10-CM Z46.0 Encounter for fit/adjst of spectacles and contact lenses Active Diagnosis [facility] Diagnosis: ICD-10-CM L71.8 Other rosacea Active Diagnosis [facility] Diagnosis: ICD-10-CM M25.519 Pain in unspecified shoulder Active Diagnosis [facility] Diagnosis: ICD-10-CM I10 Essential (primary) hypertension Active Diagnosis [facility] Medications Combined list of outpatient medications from Department of Defense and Veterans Affairs facilities.Medications provided include 1) outpatient medications from the last 15 months, and 2) patient-reported medications. Medication Details Route Status Patient Instructions Prescription Expires Prescription Number Last Dispense Date Ordering Provider Order Date Order Qty Source AMLODIPINE BESYLATE 5MG TAB TAKE ONE TABLET BY MOUTH ONCE DAILY FOR HIGH BLOOD PRESSURE FOR BLOOD PRESSURE /HEART, DO NOT TAKE WITH GRAPEFRU IT JUICE ORAL ACTIVE 05/03/2025 [id number] LASHELL CARPENTER 2024 90 [facility] AMLODIPINE BESYLATE 5MG TAB TAKE ONE TABLET BY MOUTH ONCE DAILY FOR HIGH BLOOD PRESSURE FOR BLOOD PRESSURE /HEART, DO NOT TAKE WITH GRAPEFRU IT JUICE ORAL DISCONT INUED 07/10/2024 [id number] 5 Cruz VEGA 2023 90 [place] AMLODIPINE BESYLATE 5MG TAB TAKE ONE TABLET BY MOUTH ONCE DAILY FOR HIGH BLOOD PRESSURE FOR BLOOD PRESSURE /HEART, DO NOT TAKE WITH GRAPEFRU IT JUICE ORAL DISCONT INUED 10/28/2023 [id number] TANISHA SHAH 2022 90 [place] BUPRENORPHI NE 5MCG/HR PATCH APPLY 1 PATCH TO SKIN EVERY 7 DAYS FOR PAIN (REMOVE PATCH BEFORE APPLYING A NEW PATCH) TRANSD ERMAL 01/04/2024 [id number] LULU GUERRA S 2023 4 [facility] CLOTRIMAZOL E 1% CREAM,TOP APPLY A MODERATE AMOUNT TOPICALL Y TWICE DAILY FOR FUNGAL INFECTIO N TOPICA L ACTIVE 08/05/2024 [id number] LASHELL CARPENTER M 2023 30 [place] CYCLOSPORIN E 0.05% (PF) EMULSION,OP H,0.4ML INSTILL 1 DROP INTO EACH EYE TWICE DAILY OPHTHA LMIC ACTIVE 03/13/2025 [id number] Charo RHODES ICHELE 2023 120 [facility] CYCLOSPORIN E 0.05% (PF) EMULSION,OP H,0.4ML INSTILL 1 DROP INTO EACH EYE TWICE DAILY OPHTHA LMIC DISCONT INUED 02/22/2024 [id number] Charo RHODES ICHELE 2022 120 [facility] FINASTERIDE 5MG TAB TAKE ONE TABLET BY MOUTH ONCE DAILY FOR ENLARGED PROSTATE ORAL ACTIVE 05/03/2025 [id number] LASHELL CARPENTER 2024 90 [place] FINASTERIDE 5MG TAB TAKE ONE TABLET BY MOUTH ONCE DAILY FOR ENLARGED PROSTATE ORAL DISCONT INUED 07/10/2024 [id number] 5 Cruz VEGA A 2023 90 [place] FINASTERIDE 5MG TAB TAKE ONE TABLET BY MOUTH ONCE DAILY FOR ENLARGED PROSTATE ORAL DISCONT INUED 10/28/2023 [id number] TANISHA SHAH 2022 90 [place] LEVOTHYROXI NE NA 150MCG TAB TAKE ONE TABLET BY MOUTH EVERY MORNING 30 MINUTES BEFORE BREAKFAS T TAKE ON AN EMPTY STOMACH WITH A FULL GLASS OF WATER ORAL ACTIVE 05/03/2025 [id number] 5 LASHELL CARPENTER 2024 90 [place] LEVOTHYROXI NE NA 150MCG TAB (SYNTHROID) TAKE ONE TABLET BY MOUTH EVERY MORNING 30 MINUTES BEFORE BREAKFAS T TAKE ON AN EMPTY STOMACH WITH A FULL GLASS OF WATER ORAL DISCONT INUED 07/10/2024 [id number] 5 Cruz VEGA A 2023 90 [place] LEVOTHYROXI NE NA 150MCG TAB (SYNTHROID) TAKE ONE TABLET BY MOUTH EVERY MORNING 30 MINUTES BEFORE BREAKFAS T TAKE ON AN EMPTY STOMACH WITH A FULL GLASS OF WATER ORAL DISCONT INUED 10/28/2023 [id number] TANISHA SHAH 2022 90 [place] LISINOPRIL 40MG TAB TAKE ONE TABLET BY MOUTH ONCE DAILY TO CONTROL BLOOD PRESSURE ORAL ACTIVE 05/03/2025 [id number] 5 LASHELL CARPENTER 2024 90 [place] LISINOPRIL 40MG TAB TAKE ONE TABLET BY MOUTH ONCE DAILY TO CONTROL BLOOD PRESSURE ORAL DISCONT INUED 07/10/2024 [id number] 5 Cruz VEGA A 2023 90 [place] LISINOPRIL 40MG TAB TAKE ONE TABLET BY MOUTH ONCE DAILY TO CONTROL BLOOD PRESSURE ORAL DISCONT INUED 10/28/2023 [id number] 4 TANISHA SHAH 2022 90 [place] LORAZEPAM 0.5MG TAB TAKE ONE TABLET BY MOUTH ONCE DAILY NEEDED FOR ANXIETY/ NERVES ORAL DISCONT INUED 11/23/2023 [id number] TANISHA SHAHE 2023 30 [facility] LORAZEPAM 0.5MG TAB TAKE ONE TABLET BY MOUTH ONCE DAILY NEEDED FOR ANXIETY/ NERVES ORAL 03/08/2024 [id number] 4 LASHELL CARPENTER 2023 30 [place] MULTIVITAMI NS W/MINERALS TAB TAKE ONE TABLET BY MOUTH DAILY ORAL ACTIVE TANISHA SHAH ANA 2015 [place] NALOXONE HCL 4MG/SPRAY SOLN,SPRAY, NASAL INSTILL 1 SPRAY ONE NOSTRIL ONE TIME NEEDED FOR OPIOID OVERDOSE CALL 911 WITH ADMINIST RATION. REPEAT WITH SECOND DEVICE IF SYMPTOMS RETURN NASAL 11/03/2023 [id number] 4 LASHELL CARPENTER 2023 2 [place] OXYCODONE HCL 5MG TAB TAKE TWO TABLETS BY MOUTH EVERY MORNING AND TAKE ONE TABLET EVERY AFTERNOO N AND TAKE TWO TABLETS AT BEDTIME FOR PAIN ORAL ACTIVE 07/31/2024 [id number] 5 CHARLIE,LULU THANY S 2024 140 [facility] OXYCODONE [facility]CL 5MG TAB TAKE TWO TABLETS BY MOUTH EVERY MORNING AND TAKE ONE TABLET EVERY AFTERNOO N AND TAKE TWO TABLETS AT BEDTIME FOR PAIN NEXT FILL 07/08/24* * ORAL DISCONT INUED BY PROVIDE R 07/03/2024 [id number] 5 CHARLIEBE THANY S 2024 140 [facility] OXYCODONE HCL 5MG TAB TAKE TWO TABLETS BY MOUTH EVERY MORNING AND TAKE ONE TABLET EVERY AFTERNOO N AND TAKE TWO TABLETS AT BEDTIME FOR PAIN ORAL DISCONT INUED BY PROVIDE R 05/09/2024 [id number] CHARLIE,BE THANY S 2024 140 [facility] OXYCODONE HCL 5MG TAB TAKE TWO TABLETS BY MOUTH EVERY MORNING AND TAKE ONE TABLET EVERY AFTERNOO N AND TAKE TWO TABLETS EVERY EVENING NEXT FILL 04/15 ORAL DISCONT INUED BY PROVIDE R 04/13/2024 [id number] 4 LULU GUERRA THANY S 2023 140 [facility] OXYCODONE HCL 5MG TAB TAKE TWO TABLETS BY MOUTH TWICE DAILY NEEDED NEXT FILL 03/27 ORAL DISCONT INUED (EDIT) 03/21/2024 [id number] LULU GUERRA THANY S 2023 112 [facility] OXYCODONE HCL 5MG TAB TAKE TWO TABLETS BY MOUTH TWICE DAILY NEEDED FOR PAIN NEXT FILL 02/28/24 ORAL DISCONT INUED BY PROVIDE R 02/22/2024 [id number] 4 LULU GUERRA THANY S 2023 112 [facility] OXYCODONE HCL 5MG TAB TAKE TWO TABLETS BY MOUTH TWICE DAILY FOR PAIN ORAL DISCONT INUED 01/29/2024 [id number] RA TONE TORIBIO 2023 120 [facility] OXYCODONE HCL 5MG TAB TAKE TWO TABLETS BY MOUTH TWICE DAILY FOR PAIN NEXT FILL 12/06/23* * ORAL DISCONT INUED 12/03/2023 [id number] LASHELL CARPENTER 2023 120 [place] OXYCODONE HCL 5MG TAB TAKE TWO TABLETS BY MOUTH TWICE DAILY FOR PAIN NEXT FILL 11/08/23* * ORAL DISCONT INUED 11/06/2023 [id number] LASHELL CARPENTER 2023 120 [place] OXYCODONE HCL 5MG TAB TAKE TWO TABLETS BY MOUTH TWICE DAILY NEEDED FOR PAIN NEXT FILL 08/16/23 ORAL DISCONT INUED 08/09/2023 [id number] 4 Cruz VEGA 2023 120 [place] OXYCODONE HCL 5MG TAB TAKE 2 TABLETS BY MOUTH TWICE DAILY NEEDED FOR PAIN NEXT FILL 07/19/23* * ORAL DISCONT INUED 07/12/2023 [id number] CARLNEE DRISCOLL SA 2023 112 [place] OXYCODONE HCL 5MG TAB TAKE 2 TABLETS BY MOUTH TWICE DAILY NEEDED FOR PAIN NEXT FILL 06/21/23* * ORAL DISCONT INUED 06/22/2023 [id number] TANISHA SHAH 2023 112 [facility] OXYCODONE HCL 5MG TAB TAKE TWO TABLETS BY MOUTH EVERY MORNING AND TAKE ONE TABLET EVERY AFTERNOO N AND TAKE TWO TABLETS AT BEDTIME FOR PAIN ORAL 05/30/2024 [id number] LULU GUERRA 2024 140 [facility] OXYCODONE HCL 5MG TAB TAKE TWO TABLETS BY MOUTH TWICE DAILY FOR PAIN NEXT FILL 01/03/24* * ORAL 12/28/2023 [id number] 4 LASHELL CARPENTER 2023 120 [place] OXYCODONE HCL 5MG TAB TAKE TWO TABLETS BY MOUTH TWICE DAILY NEEDED FOR PAIN ORAL 10/06/2023 [id number] LASHELL CARPENTER 2023 120 [place] OXYCODONE HCL 5MG TAB TAKE TWO TABLETS BY MOUTH TWICE DAILY NEEDED FOR PAIN NEXT FILL 09/13/23 ORAL 09/04/2023 [id number] LASHELL CARPENTER 2023 120 [place] OXYCODONE HCL 5MG TAB TAKE 2 TABLETS BY MOUTH TWICE DAILY NEEDED NEXT FILL 05/23 ORAL 05/19/2023 [id number] TANISHA SHAH 2023 112 [facility] SIMVASTATIN 40MG TAB TAKE ONE-HALF TABLET BY MOUTH ONCE DAILY FOR CHOLESTE ROL ORAL ACTIVE 07/02/2025 [id number] 5 LASHELL CARPENTER 2024 45 [place] SIMVASTATIN 40MG TAB TAKE ONE-HALF TABLET BY MOUTH ONCE DAILY FOR CHOLESTE ROL ORAL DISCONT INUED 07/10/2024 [id number] 5 rCuz VEGA A 2023 45 [place] SIMVASTATIN 40MG TAB TAKE ONE-HALF TABLET BY MOUTH ONCE DAILY FOR CHOLESTE ROL ORAL DISCONT INUED 10/28/2023 [id number] 4 ALYSSATANISHA PEREZ 2022 45 [place] TAMSULOSIN HCL 0.4MG CAP TAKE ONE CAPSULE BY MOUTH ONCE DAILY FOR ENLARGED PROSTATE ORAL ACTIVE 05/03/2025 [id number] 5 LASHELL CARPENTER 2024 90 [place] TAMSULOSIN HCL 0.4MG CAP TAKE ONE CAPSULE BY MOUTH ONCE DAILY FOR ENLARGED PROSTATE ORAL DISCONT INUED 07/10/2024 [id number] 5 Cruz VEGA A 2023 90 [place] TAMSULOSIN HCL 0.4MG CAP TAKE ONE CAPSULE BY MOUTH ONCE DAILY FOR ENLARGED PROSTATE ORAL DISCONT INUED 02/02/2024 [id number] TANISHA SHAH ANA 2022 30 [place] VALACYCLOVI R HCL 1GM TAB TAKE ONE TABLET BY MOUTH ONCE DAILY FOR INFECTIO N CAUSED BY A VIRUS ORAL ACTIVE 07/31/2024 [id number] LASHELL CARPENTER 2024 90 [place] VALACYCLOVI R HCL 1GM TAB TAKE ONE TABLET BY MOUTH ONCE DAILY FOR INFECTIO N CAUSED BY A VIRUS ORAL DISCONT INUED (EDIT) 05/24/2024 [id number] 4 LASHELL CARPENTER 2023 90 [place] VALACYCLOVI R HCL 1GM TAB TAKE ONE TABLET BY MOUTH ONCE DAILY FOR INFECTIO N CAUSED BY A VIRUS ORAL DISCONT INUED 11/03/2023 [id number] LASHELL CARPENTER 2023 90 [facility] [place] Allergies, Adverse Reactions, Alerts Combined list of allergies from Department of Defense and Veterans Affairs facilities. It does not include entries that were removed or entered in error. Substance Category Reaction Severity Reaction type Status Date Reported Comments Source AMOXICILLIN Propensity to adverse reactions to drug (finding) Eruption active 5 [facility] Immunizations Combined list of available immunizations from the Department of Defense and Veterans Affairs facilities. Immunization Series Date Given Administered By Site Reaction Lot Number CVX Code Drug Seed Technician Status Comments Source INFLUENZA, UNSPECIFIED FORMULATION 2023 88 complet ed [facility] INFLUENZA, UNSPECIFIED FORMULATION 2023 88 complet ed [facility] RSV, BIVALENT, PROTEIN SUBUNIT RSVPREF, DILUENT RECONSTITUTED , 0.5 ML, PF 2022 305 complet ed [facility] INFLUENZA VACCINE, QUADRIVALENT, ADJUVANTED 2020 205 complet ed [facility] COVID-19 (MODERNA), MRNA, LNP-S, PF, 100 MCG OR 50 MCG DOSE 3 2020 207 complet ed [facility] TD (ADULT), 2 LF TETANUS TOXOID, PRESERVATIVE FREE, ADSORBED 2020 09 complet ed [facility] COVID-19 (MODERNA), MRNA, LNP-S, PF, 100 MCG OR 50 MCG DOSE 2 2020 207 complet ed [facility] COVID-19 (MODERNA), MRNA, LNP-S, PF, 100 MCG OR 50 MCG DOSE 1 2020 207 complet ed [facility] INFLUENZA, UNSPECIFIED FORMULATION 2019 88 complet ed [facility] INFLUENZA, SEASONAL, INJECTABLE 2017 141 complet ed Site: Right Deltoid [place] PNEUMOCOCCAL POLYSACCHARID E PPV23 2017 33 complet ed [place] PNEUMOCOCCAL CONJUGATE PCV 13 2017 133 complet ed [place] INFLUENZA, SEASONAL, INJECTABLE 2017 141 complet ed Site: Left Deltoid [place] FLU,3 YRS (HISTORICAL) 2015 88 complet ed [place] ZOSTER (SHINGLES) (HISTORICAL) 2014 121 complet ed Proximal Left Arm [place] FLU,3 YRS (HISTORICAL) 2012 88 complet ed [facility] FLU,3 YRS (HISTORICAL) 2011 88 complet ed Site: Left Deltoid [place] PNEUMOCOCCAL, UNSPECIFIED FORMULATION 2011 109 complet ed Site: Left Deltoid [place] DTAP, UNSPECIFIED FORMULATION 2010 107 complet ed Site: Left Deltoid [place] FLU,3 YRS (HISTORICAL) 2009 88 complet ed Site: Left Deltoid [place] NOVEL INFLUENZA-H1N 1-09, ALL FORMULATIONS 2009 128 complet ed [employer] [place] FLU,3 YRS (HISTORICAL) 2007 88 complet ed Site: Left Deltoid [place] FLU,3 YRS (HISTORICAL) 2006 88 complet ed Site: Left Deltoid [place] FLU,3 YRS (HISTORICAL) 2005 88 complet ed [place] Results Combined list of recent chemistry, hematology and other laboratory results from Department of Defense and Veterans Affairs, ranging from 15 months to all on record, depending upon the facility. Order Name Results Value Reference Range Date Interpretation Specimen Comments Source METHADONE SCREEN METHADONE [PRESENCE] IN URINE BY SCREEN METHOD None detect ed(Neg ative) 10/08 L Specimen Type: URINE Comment: BRIANA test are qualitative , any L or H flags only indicate a [facility] alert was sent. Ordering Provider: GLORIA WHALEN Report Released Date/Time: Aug 05, 2023 10:51 AM Reporting Lab[facility] [address] [address] Performing Lab: [facility] [facility] [address] [id number] [place] ALCOHOL, ETHYL URINE PANEL ETHANOL [MASS/VOLUM E] IN URINE NONE-D ETECTE Dmg/dL - 10/08 Specimen Type: URINE Comment: Urine with Cr <5 is diluted or substituted . Cr between 5 and 20 is very dilute. Urine with SG of 1.001 or less is diluted or substituted . SG of 1.003 or less is very dilute. Urine with a pH <3 or >11 has been adulterated and is unsuitable for testing by our current method. Urine with pH between 3 and 4 OR 10 and 11 may have been adulterated . Ordering Provider: GLORIA WHALEN Report Released Date/Time: Aug 05, 2023 10:51 AM Reporting Lab: [facility] [employer] [address] Performing Lab: [facility] [address] [place] ALCOHOL, ETHYL URINE PANEL PH OF URINE 5.0 [pH] 4 - 10/08 Specimen Type: URINE Comment: Urine with Cr <5 is diluted or substituted . Cr between 5 and 20 is very dilute. Urine with SG of 1.001 or less is diluted or substituted . SG of 1.003 or less is very dilute. Urine with a pH <3 or >11 has been adulterated and is unsuitable for testing by our current method. Urine with pH between 3 and 4 OR 10 and 11 may have been adulterated . Ordering Provider: GLORIA WHALEN Report Released Date/Time: Aug 05, 2023 10:51 AM Reporting Lab: [facility] [employer] [address] [address] Performing Lab: [facility] [employer] [address] [place] ALCOHOL, ETHYL URINE PANEL CREATININE [MASS/VOLUM E] IN URINE 100.84 mg/dL 10/08 Specimen Type: URINE Comment: Urine with Cr <5 is diluted or substituted . Cr between 5 and 20 is very dilute. Urine with SG of 1.001 or less is diluted or substituted . SG of 1.003 or less is very dilute. Urine with a pH <3 or >11 has been adulterated and is unsuitable for testing by our current method. Urine with pH between 3 and 4 OR 10 and 11 may have been adulterated . Ordering Provider: GLORIA WHALEN Report Released Date/Time: Aug 05, 2023 10:51 AM Reporting Lab: [address] [address] Performing Lab: [address] [address] [place] ALCOHOL, ETHYL URINE PANEL SPECIFIC GRAVITY OF URINE 1.020 1.003 - 1.020 10/08 Specimen Type: URINE Comment: Urine with Cr <5 is diluted or substituted . Cr between 5 and 20 is very dilute. Urine with SG of 1.001 or less is diluted or substituted . SG of 1.003 or less is very dilute. Urine with a pH <3 or >11 has been adulterated and is unsuitable for testing by our current method. Urine with pH between 3 and 4 OR 10 and 11 may have been adulterated . Ordering Provider: GLORIA WHALEN Report Released Date/Time: Aug 05, 2023 10:51 AM Reporting Lab: [address] [address] Performing Lab: [address] [address] [place] AMPHETAMI KEIRY SCREEN PANEL AMPHETAMINE S [PRESENCE] IN URINE NONE-D ETECTE D - 1000 10/08 Specimen Type: URINE Comment: Urine with Cr <5 is diluted or substituted . Cr between 5 and 20 is very dilute. Urine with SG of 1.001 or less is diluted or substituted . SG of 1.003 or less is very dilute. Urine with a pH <3 or >11 has been adulterated and is unsuitable for testing by our current method. Urine with pH between 3 and 4 OR 10 and 11 may have been adulterated . Ordering Provider: GLORIA WHALEN Report Released Date/Time: Aug 05, 2023 10:51 AM Reporting Lab: [address] [address] Performing Lab: [address] [address] [place] AMPHETAMI KEIRY SCREEN PANEL PH OF URINE 5.0 [pH] 4 - 10 10/08 Specimen Type: URINE Comment: Urine with Cr <5 is diluted or substituted . Cr between 5 and 20 is very dilute. Urine with SG of 1.001 or less is diluted or substituted . SG of 1.003 or less is very dilute. Urine with a pH <3 or >11 has been adulterated and is unsuitable for testing by our current method. Urine with pH between 3 and 4 OR 10 and 11 may have been adulterated . Ordering Provider: GLORIA WHALEN Report Released Date/Time: Aug 05, 2023 10:51 AM Reporting Lab: [address] [address] Performing Lab: [place] [address] [place] AMPHETAMI KEIRY SCREEN PANEL CREATININE [MASS/VOLUM E] IN URINE 100.84 mg/dL 10/08 Specimen Type: URINE Comment: Urine with Cr <5 is diluted or substituted . Cr between 5 and 20 is very dilute. Urine with SG of 1.001 or less is diluted or substituted . SG of 1.003 or less is very dilute. Urine with a pH <3 or >11 has been adulterated and is unsuitable for testing by our current method. Urine with pH between 3 and 4 OR 10 and 11 may have been adulterated . Ordering Provider: GLORIA WHALEN Report Released Date/Time: Aug 05, 2023 10:51 AM Reporting Lab: [address] [address] Performing Lab: [place] [address] [place] AMPHETAMI KEIRY SCREEN PANEL SPECIFIC GRAVITY OF URINE 1.020 1.003 - 1.020 10/08 Specimen Type: URINE Comment: Urine with Cr <5 is diluted or substituted . Cr between 5 and 20 is very dilute. Urine with SG of 1.001 or less is diluted or substituted . SG of 1.003 or less is very dilute. Urine with a pH <3 or >11 has been adulterated and is unsuitable for testing by our current method. Urine with pH between 3 and 4 OR 10 and 11 may have been adulterated . Ordering Provider: GLORIA WHALEN Report Released Date/Time: Aug 05, 2023 10:51 AM Reporting Lab: [address] [address] Performing Lab: [address] [address] [employer] FENTANYL SCREEN PANEL FENTANYL [PRESENCE] IN URINE BY SCREEN METHOD NONE-D ETECTE Dng/mL 10/08 Specimen Type: URINE Comment: Urine with Cr <5 is diluted or substituted . Cr between 5 and 20 is very dilute. Urine with SG of 1.001 or less is diluted or substituted . SG of 1.003 or less is very dilute. Urine with a pH <3 or >11 has been adulterated and is unsuitable for testing by our current method. Urine with pH between 3 and 4 OR 10 and 11 may have been adulterated . FENTANYL CONFIRMATIO N NOT SENT BY LAB. Ordering Provider: GLORIA WHALEN Report Released Date/Time: Aug 05, 2023 10:51 AM Reporting Lab: [address] [address] Performing Lab: [address] [address] [employer] FENTANYL SCREEN PANEL PH OF URINE 5.0 [pH] 4 - 10 10/08 Specimen Type: URINE Comment: Urine with Cr <5 is diluted or substituted . Cr between 5 and 20 is very dilute. Urine with SG of 1.001 or less is diluted or substituted . SG of 1.003 or less is very dilute. Urine with a pH <3 or >11 has been adulterated and is unsuitable for testing by our current method. Urine with pH between 3 and 4 OR 10 and 11 may have been adulterated . FENTANYL CONFIRMATIO N NOT SENT BY LAB. Ordering Provider: GLORIA WHALEN Report Released Date/Time: Aug 05, 2023 10:51 AM Reporting Lab: [facility] [address] [address] Performing Lab: [address] [address] [employer] LD FENTANYL SCREEN PANEL CREATININE [MASS/VOLUM E] IN URINE 97.55 mg/dL 10/08 Specimen Type: URINE Comment: Urine with Cr <5 is diluted or substituted . Cr between 5 and 20 is very dilute. Urine with SG of 1.001 or less is diluted or substituted . SG of 1.003 or less is very dilute. Urine with a pH <3 or >11 has been adulterated and is unsuitable for testing by our current method. Urine with pH between 3 and 4 OR 10 and 11 may have been adulterated . FENTANYL CONFIRMATIO N NOT SENT BY LAB. Ordering Provider: GLORIA WHALEN Report Released Date/Time: Aug 05, 2023 10:51 AM Reporting Lab: [facility] [address] Performing Lab: [address] [address] [employer] LD FENTANYL SCREEN PANEL SPECIFIC GRAVITY OF URINE 1.020 1.003 - 1.020 10/08 Specimen Type: URINE Comment: Urine with Cr <5 is diluted or substituted . Cr between 5 and 20 is very dilute. Urine with SG of 1.001 or less is diluted or substituted . SG of 1.003 or less is very dilute. Urine with a pH <3 or >11 has been adulterated and is unsuitable for testing by our current method. Urine with pH between 3 and 4 OR 10 and 11 may have been adulterated . FENTANYL CONFIRMATIO N NOT SENT BY LAB. Ordering Provider: GLORIA WHALEN Report Released Date/Time: Aug 05, 2023 10:51 AM Reporting Lab: [address] [address] Performing Lab: [facility] [address] [address] [employer] LD BENZODIAZ EPINES SCREEN PANEL BENZODIAZEP ASH [PRESENCE] IN URINE BY SCREEN METHOD NONE-D ETECTE D - 200 10/08 Specimen Type: URINE Comment: Urine with Cr <5 is diluted or substituted . Cr between 5 and 20 is very dilute. Urine with SG of 1.001 or less is diluted or substituted . SG of 1.003 or less is very dilute. Urine with a pH <3 or >11 has been adulterated and is unsuitable for testing by our current method. Urine with pH between 3 and 4 OR 10 and 11 may have been adulterated . Ordering Provider: GLORIA WHALEN Report Released Date/Time: Aug 05, 2023 10:51 AM Reporting Lab: [address] [address] Performing Lab: [address] [address] [employer] LD BENZODIAZ EPINES SCREEN PANEL PH OF URINE 5.0 [pH] 4 - 10 10/08 Specimen Type: URINE Comment: Urine with Cr <5 is diluted or substituted . Cr between 5 and 20 is very dilute. Urine with SG of 1.001 or less is diluted or substituted . SG of 1.003 or less is very dilute. Urine with a pH <3 or >11 has been adulterated and is unsuitable for testing by our current method. Urine with pH between 3 and 4 OR 10 and 11 may have been adulterated . Ordering Provider: GLORIA WHALEN Report Released Date/Time: Aug 05, 2023 10:51 AM Reporting Lab: [address] [address] Performing Lab: [address] [address] [employer] LD BENZODIAZ EPINES SCREEN PANEL CREATININE [MASS/VOLUM E] IN URINE 100.84 mg/dL 10/08 Specimen Type: URINE Comment: Urine with Cr <5 is diluted or substituted . Cr between 5 and 20 is very dilute. Urine with SG of 1.001 or less is diluted or substituted . SG of 1.003 or less is very dilute. Urine with a pH <3 or >11 has been adulterated and is unsuitable for testing by our current method. Urine with pH between 3 and 4 OR 10 and 11 may have been adulterated . Ordering Provider: GLORIA WHALEN Report Released Date/Time: Aug 05, 2023 10:51 AM Reporting Lab: [address] [address] Performing Lab: [address] [address] [place] BENZODIAZ EPINES SCREEN PANEL SPECIFIC GRAVITY OF URINE 1.020 1.003 - 1.020 10/08 Specimen Type: URINE Comment: Urine with Cr <5 is diluted or substituted . Cr between 5 and 20 is very dilute. Urine with SG of 1.001 or less is diluted or substituted . SG of 1.003 or less is very dilute. Urine with a pH <3 or >11 has been adulterated and is unsuitable for testing by our current method. Urine with pH between 3 and 4 OR 10 and 11 may have been adulterated . Ordering Provider: GLORIA WHALEN Report Released Date/Time: Aug 05, 2023 10:51 AM Reporting Lab: [address] [address] Performing Lab: [address] [address] [place] [employer] BANDAR SCREEN PANEL BUPRENORPHI NE [PRESENCE] IN URINE NONE-D ETECTE D 10/08 Specimen Type: URINE Comment: Urine with Cr <5 is diluted or substituted . Cr between 5 and 20 is very dilute. Urine with SG of 1.001 or less is diluted or substituted . SG of 1.003 or less is very dilute. Urine with a pH <3 or >11 has been adulterated and is unsuitable for testing by our current method. Urine with pH between 3 and 4 OR 10 and 11 may have been adulterated . Ordering Provider: GLORIA WHALEN Report Released Date/Time: Aug 05, 2023 10:51 AM Reporting Lab: [facility] [address] [address] Performing Lab: [facility] [place] [address] [place] [employer]P BANDAR SCREEN PANEL PH OF URINE 5.0 [pH] 4 - 10 10/08 Specimen Type: URINE Comment: Urine with Cr <5 is diluted or substituted . Cr between 5 and 20 is very dilute. Urine with SG of 1.001 or less is diluted or substituted . SG of 1.003 or less is very dilute. Urine with a pH <3 or >11 has been adulterated and is unsuitable for testing by our current method. Urine with pH between 3 and 4 OR 10 and 11 may have been adulterated . Ordering Provider: GLORIA WHALEN Report Released Date/Time: Aug 05, 2023 10:51 AM Reporting Lab: [facility] [address] [address] Performing Lab: [facility] [address] [address] [place] LD [employer]PREN[employer]P BANDAR SCREEN PANEL CREATININE [MASS/VOLUM E] IN URINE 100.84 mg/dL 10/08 Specimen Type: URINE Comment: Urine with Cr <5 is diluted or substituted . Cr between 5 and 20 is very dilute. Urine with SG of 1.001 or less is diluted or substituted . SG of 1.003 or less is very dilute. Urine with a pH <3 or >11 has been adulterated and is unsuitable for testing by our current method. Urine with pH between 3 and 4 OR 10 and 11 may have been adulterated . Ordering Provider: GLORIA WHALEN Report Released Date/Time: Aug 05, 2023 10:51 AM Reporting Lab: [facility] [place] [address] Performing Lab: [address] [address] [place] [employer]P BANDAR SCREEN PANEL SPECIFIC GRAVITY OF URINE 1.020 1.003 - 1.020 10/08 Specimen Type: URINE Comment: Urine with Cr <5 is diluted or substituted . Cr between 5 and 20 is very dilute. Urine with SG of 1.001 or less is diluted or substituted . SG of 1.003 or less is very dilute. Urine with a pH <3 or >11 has been adulterated and is unsuitable for testing by our current method. Urine with pH between 3 and 4 OR 10 and 11 may have been adulterated . Ordering Provider: GLORIA WHALEN Report Released Date/Time: Aug 05, 2023 10:51 AM Reporting Lab: [facility] [employer] [address] Performing Lab: [address] [address] [employer] CANNABINO IDS SCREEN PANEL CANNABINOID S [PRESENCE] IN URINE BY SCREEN METHOD NONE-D ETECTE D - 50 10/08 Specimen Type: URINE Comment: Urine with Cr <5 is diluted or substituted . Cr between 5 and 20 is very dilute. Urine with SG of 1.001 or less is diluted or substituted . SG of 1.003 or less is very dilute. Urine with a pH <3 or >11 has been adulterated and is unsuitable for testing by our current method. Urine with pH between 3 and 4 OR 10 and 11 may have been adulterated . Ordering Provider: GLORIA WHALEN Report Released Date/Time: Aug 05, 2023 10:51 AM Reporting Lab: [address] [address] Performing Lab: [address] [address] [employer] CANNABINO IDS SCREEN PANEL PH OF URINE 5.0 [pH] 4 - 10 10/08 Specimen Type: URINE Comment: Urine with Cr <5 is diluted or substituted . Cr between 5 and 20 is very dilute. Urine with SG of 1.001 or less is diluted or substituted . SG of 1.003 or less is very dilute. Urine with a pH <3 or >11 has been adulterated and is unsuitable for testing by our current method. Urine with pH between 3 and 4 OR 10 and 11 may have been adulterated . Ordering Provider: GLORIA WHALEN Report Released Date/Time: Aug 05, 2023 10:51 AM Reporting Lab: [facility] [address] [address] Performing Lab: [address] [address] [place] CANNABINO IDS SCREEN PANEL CREATININE [MASS/VOLUM E] IN URINE 100.84 mg/dL 10/08 Specimen Type: URINE Comment: Urine with Cr <5 is diluted or substituted . Cr between 5 and 20 is very dilute. Urine with SG of 1.001 or less is diluted or substituted . SG of 1.003 or less is very dilute. Urine with a pH <3 or >11 has been adulterated and is unsuitable for testing by our current method. Urine with pH between 3 and 4 OR 10 and 11 may have been adulterated . Ordering Provider: GLORIA WHALEN Report Released Date/Time: Aug 05, 2023 10:51 AM Reporting Lab: [facility] [address] [address] Performing Lab: [facility] [address] [place] LD CANNABINO IDS SCREEN PANEL SPECIFIC GRAVITY OF URINE 1.020 1.003 - 1.020 10/08 Specimen Type: URINE Comment: Urine with Cr <5 is diluted or substituted . Cr between 5 and 20 is very dilute. Urine with SG of 1.001 or less is diluted or substituted . SG of 1.003 or less is very dilute. Urine with a pH <3 or >11 has been adulterated and is unsuitable for testing by our current method. Urine with pH between 3 and 4 OR 10 and 11 may have been adulterated . Ordering Provider: GLORIA WHALEN Report Released Date/Time: Aug 05, 2023 10:51 AM Reporting Lab: [facility] [address] Performing Lab: [facility] [address] [place] [employer] COCAINE SCREEN PANEL COCAINE [PRESENCE] IN URINE BY SCREEN METHOD NONE-D ETECTE D - 300 10/08 Specimen Type: URINE Comment: Urine with Cr <5 is diluted or substituted . Cr between 5 and 20 is very dilute. Urine with SG of 1.001 or less is diluted or substituted . SG of 1.003 or less is very dilute. Urine with a pH <3 or >11 has been adulterated and is unsuitable for testing by our current method. Urine with pH between 3 and 4 OR 10 and 11 may have been adulterated . Ordering Provider: GLORIA WHALEN Report Released Date/Time: Aug 05, 2023 10:51 AM Reporting Lab: [facility] [employer] [address] [address] Performing Lab: [facility] [address] [facility] COCAINE SCREEN PANEL PH OF URINE 5.0 [pH] 4 - 10 10/08 Specimen Type: URINE Comment: Urine with Cr <5 is diluted or substituted . Cr between 5 and 20 is very dilute. Urine with SG of 1.001 or less is diluted or substituted . SG of 1.003 or less is very dilute. Urine with a pH <3 or >11 has been adulterated and is unsuitable for testing by our current method. Urine with pH between 3 and 4 OR 10 and 11 may have been adulterated . Ordering Provider: GLORIA WHALEN Report Released Date/Time: Aug 05, 2023 10:51 AM Reporting Lab: [facility] [employer] [address] [address] Performing Lab: [facility] [employer] [address] [facility] [employer] COCAINE SCREEN PANEL CREATININE [MASS/VOLUM E] IN URINE 100.84 mg/dL 10/08 Specimen Type: URINE Comment: Urine with Cr <5 is diluted or substituted . Cr between 5 and 20 is very dilute. Urine with SG of 1.001 or less is diluted or substituted . SG of 1.003 or less is very dilute. Urine with a pH <3 or >11 has been adulterated and is unsuitable for testing by our current method. Urine with pH between 3 and 4 OR 10 and 11 may have been adulterated . Ordering Provider: GLORIA WHALEN Report Released Date/Time: Aug 05, 2023 10:51 AM Reporting Lab: [address] [address] Performing Lab: [address] [address] [place] LD COCAINE SCREEN PANEL SPECIFIC GRAVITY OF URINE 1.020 1.003 - 1.020 10/08 Specimen Type: URINE Comment: Urine with Cr <5 is diluted or substituted . Cr between 5 and 20 is very dilute. Urine with SG of 1.001 or less is diluted or substituted . SG of 1.003 or less is very dilute. Urine with a pH <3 or >11 has been adulterated and is unsuitable for testing by our current method. Urine with pH between 3 and 4 OR 10 and 11 may have been adulterated . Ordering Provider: GLORIA WHALEN Report Released Date/Time: Aug 05, 2023 10:51 AM Reporting Lab: [address] [address] Performing Lab: [address] [address] [employer] LD OXYCODONE SCREEN PANEL OXYCODONE [PRESENCE] IN URINE BY SCREEN METHOD NONE-D ETECTE D - 100 10/08 Specimen Type: URINE Comment: Urine with Cr <5 is diluted or substituted . Cr between 5 and 20 is very dilute. Urine with SG of 1.001 or less is diluted or substituted . SG of 1.003 or less is very dilute. Urine with a pH <3 or >11 has been adulterated and is unsuitable for testing by our current method. Urine with pH between 3 and 4 OR 10 and 11 may have been adulterated . Ordering Provider: GLORIA WHALEN Report Released Date/Time: Aug 05, 2023 10:51 AM Reporting Lab: [address] [address] Performing Lab: [facility] [employer] [address] [place] LD OXYCODONE SCREEN PANEL PH OF URINE 5.0 [pH] 4 - 10 10/08 Specimen Type: URINE Comment: Urine with Cr <5 is diluted or substituted . Cr between 5 and 20 is very dilute. Urine with SG of 1.001 or less is diluted or substituted . SG of 1.003 or less is very dilute. Urine with a pH <3 or >11 has been adulterated and is unsuitable for testing by our current method. Urine with pH between 3 and 4 OR 10 and 11 may have been adulterated . Ordering Provider: GLORIA WHALEN Report Released Date/Time: Aug 05, 2023 10:51 AM Reporting Lab: [facility] [employer] [address] Performing Lab: [address] [address] [employer] LD OXYCODONE SCREEN PANEL CREATININE [MASS/VOLUM E] IN URINE 100.84 mg/dL 10/08 Specimen Type: URINE Comment: Urine with Cr <5 is diluted or substituted . Cr between 5 and 20 is very dilute. Urine with SG of 1.001 or less is diluted or substituted . SG of 1.003 or less is very dilute. Urine with a pH <3 or >11 has been adulterated and is unsuitable for testing by our current method. Urine with pH between 3 and 4 OR 10 and 11 may have been adulterated . Ordering Provider: GLORIA WHALEN Report Released Date/Time: Aug 05, 2023 10:51 AM Reporting Lab: [facility] [employer] [address] Performing Lab: [address] [address] [employer] LD OXYCODONE SCREEN PANEL SPECIFIC GRAVITY OF URINE 1.020 1.003 - 1.020 10/08 Specimen Type: URINE Comment: Urine with Cr <5 is diluted or substituted . Cr between 5 and 20 is very dilute. Urine with SG of 1.001 or less is diluted or substituted . SG of 1.003 or less is very dilute. Urine with a pH <3 or >11 has been adulterated and is unsuitable for testing by our current method. Urine with pH between 3 and 4 OR 10 and 11 may have been adulterated . Ordering Provider: GLORIA WHALEN Report Released Date/Time: Aug 05, 2023 10:51 AM Reporting Lab: [facility] [address] [address] Performing Lab: [facility] [address] [address] [employer] OPIATES SCREEN PANEL OPIATES [PRESENCE] IN URINE BY SCREEN METHOD NONE-D ETECTE D - 300 10/08 Specimen Type: URINE Comment: Urine with Cr <5 is diluted or substituted . Cr between 5 and 20 is very dilute. Urine with SG of 1.001 or less is diluted or substituted . SG of 1.003 or less is very dilute. Urine with a pH <3 or >11 has been adulterated and is unsuitable for testing by our current method. Urine with pH between 3 and 4 OR 10 and 11 may have been adulterated . Ordering Provider: GLORIA WHALEN Report Released Date/Time: Aug 05, 2023 10:51 AM Reporting Lab: [facility] [address] [address] Performing Lab: [address] [address] [place] LD OPIATES SCREEN PANEL PH OF URINE 5.0 [pH] 4 - 10 10/08 Specimen Type: URINE Comment: Urine with Cr <5 is diluted or substituted . Cr between 5 and 20 is very dilute. Urine with SG of 1.001 or less is diluted or substituted . SG of 1.003 or less is very dilute. Urine with a pH <3 or >11 has been adulterated and is unsuitable for testing by our current method. Urine with pH between 3 and 4 OR 10 and 11 may have been adulterated . Ordering Provider: GLORIA WHALEN Report Released Date/Time: Aug 05, 2023 10:51 AM Reporting Lab: [facility] [address] [address] Performing Lab: [address] [address] [place] LD OPIATES SCREEN PANEL CREATININE [MASS/VOLUM E] IN URINE 100.84 mg/dL 10/08 Specimen Type: URINE Comment: Urine with Cr <5 is diluted or substituted . Cr between 5 and 20 is very dilute. Urine with SG of 1.001 or less is diluted or substituted . SG of 1.003 or less is very dilute. Urine with a pH <3 or >11 has been adulterated and is unsuitable for testing by our current method. Urine with pH between 3 and 4 OR 10 and 11 may have been adulterated . Ordering Provider: GLORIA WHALEN Report Released Date/Time: Aug 05, 2023 10:51 AM Reporting Lab: [facility] [address] [address] Performing Lab: [facility] [address] [place] OPIATES SCREEN PANEL SPECIFIC GRAVITY OF URINE 1.020 1.003 - 1.020 10/08 Specimen Type: URINE Comment: Urine with Cr <5 is diluted or substituted . Cr between 5 and 20 is very dilute. Urine with SG of 1.001 or less is diluted or substituted . SG of 1.003 or less is very dilute. Urine with a pH <3 or >11 has been adulterated and is unsuitable for testing by our current method. Urine with pH between 3 and 4 OR 10 and 11 may have been adulterated . Ordering Provider: GLORIA WHALEN Report Released Date/Time: Aug 05, 2023 10:51 AM Reporting Lab: [facility] [address] [address] Performing Lab: [address] [address] [employer] [place] Vital Signs Combined list of inpatient and outpatient Vital Signs from Department of Defense and Veterans Affairs, ranging from 12 months to all on record, depending upon the facility. Vital Sign Value Date Comments Source SYSTOLIC BLOOD PRESSURE 140 05/04/2024 12:36:00 [place] DIASTOLIC BLOOD PRESSURE 80 05/04/2024 12:36:00 [place] SYSTOLIC BLOOD PRESSURE 156 05/02/2024 10:50:04 [place] DIASTOLIC BLOOD PRESSURE 78 05/02/2024 10:50:04 [place] PULSE OXIMETRY 95 05/02/2024 10:50:04 [place] WEIGHT 224 05/02/2024 10:50:04 [place] BMI 34 kg/m2 05/02/2024 10:50:04 [place] TEMPERATURE 98.7 05/02/2024 10:50:04 [place] PULSE 88 05/02/2024 10:50:04 [place] SYSTOLIC BLOOD PRESSURE 135 10/14/2023 08:55:00 [place] DIASTOLIC BLOOD PRESSURE 80 10/14/2023 08:55:00 [place] SYSTOLIC BLOOD PRESSURE 142 10/09/2023 08:49:11 [place] DIASTOLIC BLOOD PRESSURE 80 10/09/2023 08:49:11 [place] PULSE OXIMETRY 98 10/09/2023 08:49:11 [place] WEIGHT 212.8 10/09/2023 08:49:11 [place] BMI 32 kg/m2 10/09/2023 08:49:11 [place] TEMPERATURE 98.1 10/09/2023 08:49:11 [place] PULSE 98 10/09/2023 08:49:11 [place] SYSTOLIC BLOOD PRESSURE 146 08/04/2023 10:10:00 [place] DIASTOLIC BLOOD PRESSURE 87 08/04/2023 10:10:00 [place] PULSE 95 08/04/2023 10:10:00 [place] Encounters Combined list of: 1) Encounters from Department of Veterans Affairs facilities going backup to the last 18 months, not all VA inpatient encounters are included; 2) Encounters from the Department of Defense facilities going backup to 280 months. Location Location Details Encounter Type Encounter Number Reason For Visit Attending Provider ADM Date DC Date Status Disposition Source [facility] Outpatient Encounter [id number] OLVIN SALDAÑA 01/23 [facility] En[facility] [id number] 01/23 [facility] Encounter [id number] OLVIN SALDAÑA 02/20 [facility] Encounter [id number] 02/20 [facility] EYE EXAM&TX ESTAB PT 1/>VST [id number] Diagnos is: ICD-10- CM L71.8 Other rosacea MEAGANWILLIAM 02/21 [facility] FIT SPECTACLES MONOFOCAL [id number] Diagnos is: ICD-10- CM Z46.0 Encount er for fit/adj st of spectac les and contact lenses MEAGANWILLIAM 02/23 [facility] Out[facility] Encounter [id number] OLVIN SALDAÑA 03/20 [facility] En[facility] [id number] 03/20 [facility] En[facility] [id number] 03/29 [facility] En[facility] [id number] 04/10 [facility] En[facility] [id number] 04/12 [facility] En[facility] [id number] OLVIN SALDAÑA 04/17 [facility] Encounter [id number] 04/17 [facility] En[facility] [id number] 04/20 [facility] En[facility] [id number] 04/21 [facility] En[facility] [id number] OLVIN SALDAÑA 05/15 [facility] Encounter [id number] 05/15 [facility] Encounter [id number] 05/23 [facility] En[facility] [id number] 05/23 [facility] En[facility] [id number] 05/23 [facility] Out[facility] Encounter [id number] ME TUAN LUNA 06/11 [facility] Encounter [id number] 06/11 [facility] Encounter [id number] 06/25 [facility] En[facility] [id number] 07/09 [facility] [place] OFFICE O/P EST MOD 30 MIN [id number] Diagnos is: ICD-10- CM I10 Essenti al (primar y) hyperte nsion JUAN VEGA 07/09 [place] [facility] Encounter [id number] 07/13 [facility] Encounter [id number] 07/19 [facility] Encounter [id number] 07/22 [facility] [place] OFF/OP EST MAY X REQ PHY/QHP [id number] Diagnos is: ICD-10- CM I10 Essenti al (primar y) hyperte nsion CAROL VILCHIS 08/03 [place] [facility] Encounter [id number] 08/13 [facility] En[facility] [id number] Charo PALOMINO 08/13 [facility] Encounter [id number] 08/22 [facility] En[facility] [id number] 08/31 [facility] Encounter [id number] 09/04 [facility] Encounter [id number] 09/12 [facility] Encounter [id number] 10/02 [facility] En[facility] [id number] 10/06 [facility] En[facility] [id number]/08 [facility] [place] Outpatient Encounter [id number] Diagnos is: ICD-10- CM 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 SUAD [place],OG LILY M 10/08 [place] [facility] En[facility] [id number] 10/15 [facility] En[facility] [id number] 10/18 [facility] En[facility] [id number] 10/30 [facility] En[facility] [id number] 11/01 [facility] En[facility] [id number] 11/19 [facility] MTMS BY PHARM ADDL 15 MIN [id number] Diagnos is: ICD-10- CM M25.511 Pain in right shoulde r SONIA GUERRA S 11/20 [facility] [id number] 1[facility]11/26 [facility] [id number] 1.11/26 [facility] En[facility] [id number] 12/03 [facility] MTMS BY PHARM ADDL 15 MIN [id number] Diagnos is: ICD-10- CM M25.511 Pain in right shoulde r SONIA GUERRA S 12/04 [facility] En[facility] [id number] 12/18 [facility] MTMS BY PHARM EST 15 MIN [id number] Diagnos is: ICD-10- CM M25.511 Pain in right shoulde r SONIA GUERRA S 12/18 [facility] Outpatient Encounter [id number] 12/25 [facility]counter [id number] 12/29 [facility] Out[facility] Encounter [id number] 01/07 [facility] MTMS BY PHARM ADDL 15 MIN [id number] 1. Diagnos is: ICD-10- CM M25.511 Pain in right shoulde r SONIA GUERRA 01/08 [facility] Out[facility] Encounter [id number] 1. SONIA GUERRA 01/09 [facility] Out[facility] Encounter [id number] 1. SONIA GUERRA 01/09 [facility] Out[facility] Encounter [id number] [facility] Encounter [id number] 1.01/22 [facility] QNHP OL DIG ASSMT&MGMT 5-10 [id number] 1. Diagnos is: ICD-10- CM M25.511 Pain in right shoulde r SONIA GUERRA 01/22 [facility] Out[facility] Encounter [id number] 02/04 [facility] MTMS BY PHARM ADDL 15 MIN [id number] Diagnos is: ICD-10- CM M25.511 Pain in right shoulde r SONIA GUERRA S 02/05 [facility] Out[facility] Encounter [id number] 02/05 [facility] Out[facility]counter [id number] 02/07 [facility] Out[facility] Encounter [id number] 02/08 [facility] OFFICE O/P [place] 60 MIN [id number] Diagnos is: ICD-10- CM M25.511 Pain in right shoulde r NIKOLE BRAN THI 02/11 [facility] PT EVAL MOD COMPLEX 30 MIN [id number] Diagnos is: ICD-10- CM M25.519 Pain in unspeci fied shoulde r PHILL GUERRERO EEN 02/11 [facility] HLTH BHV ASSMT/REAS SESSMENT [id number] Diagnos is: ICD-10- CM G89.4 Chronic pain syndrom e RAVI VILCHISEmmanuel GREENWOOD 02/11 [facility] SELF CARE MNGMENT TRAINING [id number] Diagnos is: ICD-10- CM G89.4 Chronic pain syndrom e PHILL GUERREROEmmanuel 02/14 [facility] Outpatient Encounter [id number] SONIA GUERRA Orion 02/19 [facility] Outpatient Encounter [id number] SONIA GUERRA JP S 02/19 [facility] Outpatient Encounter [id number] 02/19 [facility] Outpatient [facility]counter [id number] 02/21 [facility] Outpatient Encounter [id number] [facility] SELF CARE MNGMENT TRAINING [id number] Diagnos is: ICD-10- CM M25.511 Pain in right shoulde r MICHELLE COLEMAN 02/25 [place] [facility] Out[facility] Encounter [id number] 02/26 [facility] Outpatient Encounter [id number] 03/04 [facility] MTMS BY PHARM ADDL 15 MIN [id number] 1. Diagnos is: ICD-10- CM M25.511 Pain in right shoulde r CHARLIE,SONIA JP S 03/05 [facility] COMPRE OPH EXAM EST PT 1/ [id number] 1. Diagnos is: ICD-10- CM L71.8 Other rosacea WILLIAM RHODES 03/12 [facility] FIT SPECTACLES MONOFOCAL [id number] Diagnos is: ICD-10- CM Z46.0 Encount er for fit/adj st of spectac les and contact lenses WILLIAM RHODES 03/12 [facility] Outpatient Encounter [id number] 1. SONIA GUERRA 03/14 [facility] Outpatient Encounter [id number] SONIA GUERRA 03/14 [facility] Outpatient Encounter [id number] 04/08 [facility] MTMS BY PHARM ADDL 15 MIN [id number] Diagnos is: ICD-10- CM M25.511 Pain in right shoulde r SONIA GUERRA 04/09 [facility] Outpatient Encounter [id number] SONIA GUERRA 04/30 [facility] Outpatient Encounter [id number] SONIA GUERRA 04/30 [facility] [place] OFFICE O/P EST MOD 30 MIN [id number] Diagnos is: ICD-10- CM 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 ANDREE-Dave [place],OG LILY M 05[facility] Out[facility] Encounter [id number] 05/02 [facility] Outpatient Encounter [id number] 05/20 [facility] MTMS BY PHARM ADDL 15 MIN [id number] Diagnos is: ICD-10- CM M25.511 Pain in right shoulde r SONIA GUERRA S 05/21 [facility] Out[facility] Encounter [id number] 05/24 [facility] Outpatient Encounter [id number] SONIA GUERRA S 06/03 [facility] OFFICE O/P EST HI 40 MIN [id number] Diagnos is: ICD-10- CM G89.4 Chronic pain syndrom e NIKOLE BRAN 06/17 [facility] Out[facility] Encounter [id number] 06/17 [facility] PH1 ASSMT&MGMT NQHP 21-30 [id number] Diagnos is: ICD-10- CM 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 TAVO Shi 06/18 [facility] Outpatient [facility]counter [id number] 06/27 [facility] Outpatient Encounter [id number] 07/01 [facility] Outpatient Encounter [id number] SONIA GUERRA S 07/01 [facility] Outpatient Encounter [id number] CHARLIE,SONIA JP S 07/01 [facility] Social History Combined list of available smoking, tobacco, and other social history from Department of Defense and Veterans Affairs facilities. Social History Type Response Date Comment Source Tobacco smoking status [facility] VA-TOBACCO QUIT 15 YRS OR MORE 10/09/2023 [facility] History [facility] tobacco use VA-TOBACCO FORMER USER 10/09/2023 [facility] History [facility] tobacco use VA-TOBACCO FORMER USER 10/27/2022 [facility] History [facility] tobacco use VA-TOBACCO FORMER USER 10/29/2021 [facility] History of tobacco use VA-TOBACCO FORMER USER 09/14/2020 [facility] History of tobacco use QUIT TOBACCO USE > 7 YEARS AGO 01/01/2018 20 plus years [place] History of tobacco use QUIT TOBACCO USE > 7 YEARS AGO 10/31/2016 quit 20 years ago, cigarettes [place] History of tobacco use QUIT TOBACCO USE > 7 YEARS AGO 06/12/2015 quit 2003 [place] History of tobacco use QUIT TOBACCO USE > 7 YEARS AGO 01/03/2008 [place] History of tobacco use QUIT TOBACCO USE 1-7 YEARS AGO 02/26/2007 [place] History of tobacco use QUIT TOBACCO USE 1-7 YEARS AGO 08/29/2006 quit 3 yrs ago [place] History of tobacco use QUIT TOBACCO USE 1-7 YEARS AGO 08/16/2005 [place] History of tobacco use QUIT TOBACCO USE IN PAST YEAR 05/17/2005 quit 09/12 [place] History of tobacco use QUIT TOBACCO USE IN PAST YEAR 05/03/2005 [facility] quit tobacco September 2004. [place] History of tobacco use HISTORY OF SMOKING 02/11/2005 Quit September 2004 [place] Plan of Care List of future care activities from Department of Veterans Affairs facilities. Additional future care activities may be listed in the Assessment and Plan section. Date/Time Care Activity Care Activity Detail Facili ty 07/09/2024 AMBULATORY - MEDICINE AMBULATORY - MEDICI [facility]
--- OUTSIDE RECORDS SUMMARY | 2024-07-08 11:29 | XMS_ITS | Encounter Summary ---
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 This section includes the names of all active insurance providers for the patient. Insurance Provider Type of Coverage Plan Name Start of Policy Coverage End of Policy Coverage Group Number Member ID Insurance Provider's Telephone Number Policy Hayden's Name Patient's Relationship to Policy Hayden [employer] D[employer] DENTAL INSURANCE [facility] Apr 10, 2021 [id number] [phone] NORMA GALLO PATIENT [facility] [facility] Apr 10, 2021 [id number] NORMA GALLO PATIENT [employer]IG[employer] DENTAL DENTAL INSURANCE DENTA L Apr 10, 2004 [id number] SABINO, NORMA PATIENT MEDICARE (WNR) MEDICARE (M) PART A Mar 10, 2017 PART A [id number] [phone] [id number] NORMA GALLO PATIENT MEDICARE (WNR) MEDICARE (M) PART B Mar 10, 2017 PART B [id number] NORMA GALLO PATIENT MEDICARE (WNR) MEDICARE (M) PART A Mar 10, 2017 PART A [id number] NORMA GALLO PATIENT MEDICARE (WNR) MEDICARE (M) PART B Mar 10, 2017 PART B [id number] NORMA GALLO PATIENT [facility] PREFERRED PROVIDER ORGANIZAT ION (PPO) NAVIG ATOR BY [facility] Apr 10, 2006 [id number] NORMA GALLO PATIENT [employer] (OPT/PROF ) [facility] * Mar 10, 2017 [id number] NORMA GALLO PATIENT Selected Encounter This section includes the information on record at [place] for the Encounter. Date/Time Encounter Type Encounter Description Reason Provider Source Mar 12, 2024 08:00 AM COMPRE OPH EXAM EST PT 1/> OPTOMETRY ICD-10-CM L71.8 Other ZEESHAN Law Haris Encounter Template Text not used by [place] Assessments - Encounter Diagnoses This section includes the primary and secondary diagnoses documented for the Encounter. Date/Time Primary/Secondary Diagnosis Diagnosis Name Provider Source Mar 26, 2024 11:17 AM PRIMARY Other ZEESHAN Law [place] [facility] [place] [facility] Mar 26, 2024 11:17 AM SECONDARY Combined forms of age-related cataract, bilateral ZEESHAN RHODES [facility] [place] [facility] Mar 26, 2024 11:17 AM SECONDARY Dry eye syndrome of bilateral lacrimal glands ZEESHAN RHODES [place] [facility] [place] [facility] Mar 26, 2024 11:17 AM SECONDARY Unspecified hereditary retinal dystrophy ZEESHAN RHODES [facility] Plan of Treatment: Future Appointments (+ 6 months) and Future Tests (+/- 45 days) The Plan of Treatment section includes future care activities for the patient from all [place] treatmentfacilities. This section includes future appointments and future orders which are active, pending or scheduled. Future Appointments This section includes appointments that were scheduled to occur 6 months from the date of the Encounter, up to a maximum of 20 appointments. The data comes from all [place] treatment facilities. Appointment Date/Time Appointment Type Appointme nt Facility Name Apr 09, 2024 09:00 AM AM[facility]ULATORY [facility] MEDICINE [facility] [place] [facility] May 02, 2024 10:00 AM AMBULATORY - MEDICINE [facility] May 21, 2024 09:00 AM AMBULATORY - MEDICINE [facility] [place] [facility] Jun 17, 2024 11:30 AM AMBULATORY - MEDICINE [facility] [place] [facility] Jul 09, 2024 09:00 AM AMBULATORY - MEDICINE [place] [facility] [place] [facility] Social History: Smoking Status (Most current) and Tobacco Use (All prior to encounter date) This section includes the most current, and the historical, smoking and tobacco- related health factors from the [facility] facility where the Encounter took place. Current Smoking Status This section includes the most current smoking, or tobacco-related health factor, from the [place] facility where the Encounter took place. Date/Time Current Smoking Status Comment Facil ity Oct 09, 2023 08:30 AM VA-TOBACCO FORMER USER [place] [facility] [place] [facility] Tobacco Use History This section includes a history of the smoking, or tobacco-related health factors, that were collected on or before the date of the Encounter. The data comes from the [place] facility where the Encounter took place. Date/Time Smoking Status/Tobacco Use Comment F acility Oct 09, 2023 08:30 AM VA-TOBACCO QUIT 15 YRS OR MORE [facility] [place] [facility] Oct 27, 2022 12:11 PM VA-TOBACCO FORMER USER [facility] [place] [facility] Oct 27, 2022 12:11 PM VA-TOBACCO QUIT 15 YRS OR MORE [facility] [place] [facility] Oct 29, 2021 09:40 AM VA-TOBACCO FORMER USER [facility] [place] [facility] Oct 29, 2021 09:40 AM VA-TOBACCO QUIT 15 YRS OR MORE [facility] [place] [facility] Sep 14, 2020 11:21 AM VA-TOBACCO FORMER USER [facility] [place] [facility] Sep 14, 2020 11:21 AM VA-TOBACCO QUIT 5 TO < 15 YRS [facility] [place] [facility] Encounter Notes: All associated encounter notes This section contains the clinical notes associated to the Encounter. Date/Time Encounter Note(s) Provider Source Mar 12, 2024 08:35 AM OPTOMETRY NOTE: LOCAL TITLE: OPTOMETRY NOTE STANDARD TITLE: OPTOMETRY NOTE DATE OF NOTE: MAR 12, 2024@08:35 ENTRY DATE: MAR 12, 2024@08:35:39 AUTHOR: KATHY RHODES COSIGNER: URGENCY: STATUS: COMPLETED I saw this patient in conjunction with the student and agree with the stated findings and plan as noted below after reviewing both the history and repeating meza elements of the physical exam now. Patient well-known to me last seen here February 21, 2023 returns today for comprehensive eye examination. He has a history of facial and ocular rosacea with dry eye disease with good effect from use of Restasis twice a day each eye. Additionally he has bilateral cataracts and utilizes glasses primarily for computer use. 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 TBUT remains reduced but there is no evidence of corneal staining seen either eye. Blocked meibomian glands with minimal expression noted right and left lower lid with digital pressure. Recommend trying Meagan mask daily for 3 to 5 minutes will order through prosthetics for mail out today. Continue Restasis twice a day each eye. Nuclear sclerotic with trace anterior cortical changes each eye not impacting best corrected acuity. Update glasses for intermediate only per patient request. 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 Plan: Patient education as noted above reviewed exam findings now. Renew Restasis for mail out. Order Meagan mask for mail out. Update computer glasses today. Return in 12 months or sooner if need be. Ophthalmic medication reconciliation: Restasis 1 drop twice a day each eye Medication Reconciliation: Outpatient: Has the patient been taking medications as documented in the EMLR? YES: The patient has been taking medications as documented in the EMLR. Essential Medication List for Review used to complete this medication reconciliation. INCLUDED IN THIS LIST: Alphabetical list of active outpatient prescriptions dispensed from this VA (local) and dispensed from another VA or DoD facility (remote) as well as inpatient orders (local, pending and active), local clinic medications, locally documented non-VA medications, and local prescriptions that have or been discontinued in the past 90 days. - All changes in medications, including all non-VA/Herbal/OTC medications were entered into CPRS. - If there were any medications the patient should no longer take, they were discontinued. - The patient/caregiver was instructed to update this list, discard old lists, and take this list to the next appointment, whether with a VA or non-VA provider. JLV Link Data on this list may not be complete. Please check JLV. Allergies/ADRs (Tool #5) FACILITY ALLERGY/ADR -------- No Remote Allergy/ADR Data available for this patient [facility] (Tool #1) INCLUDED IN THIS LIST: Alphabetical list of active outpatient prescriptions dispensed from this VA (local) and dispensed from another VA or DoD facility (remote) as well as inpatient orders (local pending and active), local clinic medications, locally documented non-VA medications, and local prescriptions that have or been discontinued in the past 90 days. Non-VA Meds Last Documented On: Mar 16, 2021 NOTE The display of VA prescriptions dispensed from another VA or DoD facility (remote) is limited to active outpatient prescription entries matched to National Drug File at the originating site and may not include some items such as investigational drugs, compounds, etc. NOT INCLUDED IN THIS LIST: Medications self-entered by the patient into personal health records (i.e. [place]) are NOT included in this list. Non-VA medications documented outside this [place], remote inpatient orders (regardless of status) and remote clinic medications are NOT included in this list. The patient and provider must always discuss medications the patient is taking, regardless of where the medication was dispensed or obtained. OUTPT AMLODIPINE BESYLATE 5MG TAB (Status = Active) TAKE ONE TABLET BY MOUTH ONCE DAILY FOR HIGH BLOOD PRESSURE FOR BLOOD PRESSURE/HEART, DO NOT TAKE WITH GRAPEFRUIT JUICE Rx# [id number] Last Released: 01/23/24 Qty/Days Supply: Rx Expiration Date: 07/10/24 Refills Remainin Indication: FOR HIGH BLOOD PRESSURE OUTPT BUPRENORPHINE 5MCG/HR PATCH (Status = ) APPLY 1 PATCH TO SKIN EVERY 7 DAYS FOR PAIN (REMOVE PATCH BEFORE APPLYING A NEW PATCH) Rx# [id number] Last Released: 12/05/23 Qty/Days Supply: 08/05 Rx Expiration Date: 01/04/24 Refills Remainin Indication: FOR PAIN OUTPT CLOTRIMAZOLE 1% TOP CREAM (Status = Active) APPLY A MODERATE AMOUNT TOPICALLY TWICE DAILY FOR FUNGAL INFECTION Rx# [id number] Last Released: 08/09/23 Qty/Days Supply: Rx Expiration Date: 08/05/24 Refills Remainin Indication: FOR FUNGAL INFECTION OF THE SKIN OUTPT CYCLOSPORINE 0.05% (PF) OPH EMUL 0.4ML (Status = ) INSTILL 1 DROP INTO EACH EYE TWICE DAILY Rx# [id number] Last Released: 07/19/23 Qty/Days Supply: 120/60 Rx Expiration Date: 02/22/24 Refills Remainin OUTPT CYCLOSPORINE 0.05% (PF) OPH EMUL 0.4ML (Status = Pending) INSTILL 1 DROP INTO EACH EYE TWICE DAILY Renewed from Rx# [id number] Qty/Days Supply: 120/60 Login Date: 03/12/24 Refills Ordered: 3 OUTPT FINASTERIDE 5MG TAB (Status = Active) TAKE ONE TABLET BY MOUTH ONCE DAILY FOR ENLARGED PROSTATE Rx# [id number] Last Released: 01/23/24 Qty/Days Supply: Rx Expiration Date: 07/10/24 Refills Remainin Indication: FOR ENLARGED PROSTATE OUTPT LEVOTHYROXINE NA (SYNTHROID) 150MCG TAB (Status = Active) TAKE ONE TABLET BY MOUTH EVERY MORNING 30 MINUTES BEFORE BREAKFAST TAKE ON AN EMPTY STOMACH WITH A FULL GLASS OF WATER Rx# [id number] Last Released: 01/23/24 Qty/Days Supply: Rx Expiration Date: 07/10/24 Refills Remainin Indication: FOR THYROID OUTPT LISINOPRIL 40MG TAB (Status = Active) TAKE ONE TABLET BY MOUTH ONCE DAILY TO CONTROL BLOOD PRESSURE Rx# [id number] Last Released: 01/23/24 Qty/Days Supply: Rx Expiration Date: 07/10/24 Refills Remainin Indication: FOR HIGH BLOOD PRESSURE OUTPT LORAZEPAM 0.5MG TAB (Status = ) TAKE ONE TABLET BY MOUTH ONCE DAILY NEEDED FOR ANXIETY/NERVES Rx# [id number] Last Released: 09/13/23 Qty/Days Supply: Rx Expiration Date: 03/08/24 Refills Remainin Indication: FOR ANXIETY Non-VA MULTIVITAMIN/MINERALS CAP/TAB TAKE ONE TABLET BY MOUTH DAILY OUTPT OXYCODONE HCL 5MG TAB NOT SA (Status = ) TAKE TWO TABLETS BY MOUTH TWICE DAILY FOR PAIN NEXT FILL 01/03/24 Rx# [id number] Last Released: 12/05/23 Qty/Days Supply: 120 Rx Expiration Date: 12/28/23 Refills Remainin Indication: FOR PAIN OUTPT OXYCODONE HCL 5MG TAB NOT SA (Status = Discontinued) TAKE TWO TABLETS BY MOUTH TWICE DAILY FOR PAIN Rx# [id number] Last Released: 01/03/24 Qty/Days Supply: 12030 Rx Expiration Date: 01/29/24 Refills Remainin Indication: FOR PAIN OUTPT OXYCODONE HCL 5MG TAB NOT SA (Status = Discontinued) TAKE TWO TABLETS BY MOUTH TWICE DAILY NEEDED FOR PAIN NEXT FILL 02/28/24 Rx# [id number] Last Released: 01/31/24 Qty/Days Supply: Rx Expiration Date: 02/22/24 Refills Remainin Indication: FOR PAIN OUTPT OXYCODONE HCL 5MG TAB NOT SA (Status = Active) TAKE TWO TABLETS BY MOUTH TWICE DAILY NEEDED NEXT FILL 03/27 Rx# [id number] Last Released: 02/26/24 Qty/Days Supply: Rx Expiration Date: 03/21/24 Refills Remainin Indication: FOR PAIN OUTPT SIMVASTATIN 40MG TAB (Status = Active) TAKE ONE-HALF TABLET BY MOUTH ONCE DAILY FOR CHOLESTEROL Rx# [id number] Last Released: 01/23/24 Qty/Days Supply: Rx Expiration Date: 07/10/24 Refills Remainin Indication: FOR HIGH CHOLESTEROL OUTPT TAMSULOSIN HCL 0.4MG CAP (Status = Active) TAKE ONE CAPSULE BY MOUTH ONCE DAILY FOR ENLARGED PROSTATE Rx# [id number] Last Released: 01/23/24 Qty/Days Supply: Rx Expiration Date: 07/10/24 Refills Remainin Indication: FOR ENLARGED PROSTATE OUTPT VALACYCLOVIR HCL 1GM TAB (Status = Active) TAKE ONE TABLET BY MOUTH ONCE DAILY FOR INFECTION CAUSED BY A VIRUS Rx# [id number] Last Released: 02/29/24 Qty/Days Supply: Rx Expiration Date: 05/24/24 Refills Remainin Indication: FOR INFECTION CAUSED BY A VIRUS SUPPLIES Declines printed copy of medication list now. /genna/ Kathy Rhodes OD CHIEF OF OPTOMETRY Signed: 03/12/2024 08:47 KATHY RHODES [facility] [place] [facility] Mar 12, 2024 07:06 AM OPTOMETRY NOTE: LOCAL TITLE: OPTOMETRY NOTE STANDARD TITLE: OPTOMETRY NOTE DATE OF NOTE: MAR 12, 2024@07:06 ENTRY DATE: MAR 12, 2024@07:07:09 AUTHOR: SHELTON OLMOS EXP COSIGNER: KATHY RHODES URGENCY: STATUS: COMPLETED Active problems - Computerized Problem List is the source for the followin. Obesity ([facility] [id number]) 2. Acquired hypothyroidism 3. 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 Elevated PSA 6. Renal cyst 7. Essential hypertension 8. Diverticulosis 9. Allergic rhinitis 10. Shoulder pain 11. Neck pain 12. Anxiety disorder (SNOMED CT [id number]) 13. Keratoconjunctivitis sicca, not specified as Sjogren's 14. Tobacco Use Disorder, Remission 15. Dysthymia * 16. Hyperlipidemia * 17. Hypertrophy (Benign) of Prostate without Urinary obstruction 18. Closed dislocation of shoulder 19. Displacement of cervical intervertebral disc without myelopathy 20. Hypothyroidism Active Outpatient Medications (including Supplies): Active Outpatient Medications Status 1) AMLODIPINE BESYLATE 5MG TAB TAKE ONE TABLET BY MOUTH ACTIVE ONCE DAILY FOR HIGH BLOOD PRESSURE FOR BLOOD PRESSURE/HEART, DO NOT TAKE WITH GRAPEFRUIT JUICE 2) CLOTRIMAZOLE 1% TOP CREAM APPLY A MODERATE AMOUNT ACTIVE TOPICALLY TWICE DAILY FOR FUNGAL INFECTION 3) FINASTERIDE 5MG TAB TAKE ONE TABLET BY MOUTH ONCE ACTIVE DAILY FOR ENLARGED PROSTATE 4) LEVOTHYROXINE NA (SYNTHROID) 150MCG TAB TAKE ONE ACTIVE TABLET BY MOUTH EVERY MORNING 30 MINUTES BEFORE BREAKFAST TAKE ON AN EMPTY STOMACH WITH A FULL GLASS OF WATER 5) LISINOPRIL 40MG TAB TAKE ONE TABLET BY MOUTH ONCE ACTIVE DAILY TO CONTROL BLOOD PRESSURE 6) OXYCODONE HCL 5MG TAB NOT SA TAKE TWO TABLETS ACTIVE BY MOUTH TWICE DAILY NEEDED NEXT FILL 03/27 7) SIMVASTATIN 40MG TAB TAKE ONE-HALF TABLET BY MOUTH ACTIVE ONCE DAILY FOR CHOLESTEROL 8) TAMSULOSIN HCL 0.4MG CAP TAKE ONE CAPSULE BY MOUTH ACTIVE ONCE DAILY FOR ENLARGED PROSTATE 9) VALACYCLOVIR HCL 1GM TAB TAKE ONE TABLET BY MOUTH ACTIVE ONCE DAILY FOR INFECTION CAUSED BY A VIRUS Active Non-VA Medications Status 1) Non-VA MULTIVITAMIN/MINERALS CAP/TAB 1 TABLET BY ACTIVE MOUTH DAILY 10 Total Medications Allergies: AMOXICILLIN All medications including those prescribed by outside VA's, community providers, and all OTC meds were reviewed and reconciled with patient to the best of their abilities. This 73 year old MALE is seen today for annual CEE NILAM: 02/23/23 Chief Complaint: Eyes are still mildly symptomatic with dry eye symptoms even with the use of Restasis BID OU. Pt also reported a few months ago when he started using Buprenorphine patch of pain management, he experienced visual disturbance that looked like black snow flakes. After discussing with his PCP, he was advised to stop using it and the visual disturbance went away. Has not experiencing it since. OHx: 1. BRODY OU 2. Combined forms of cataracts OU 3. RE and presbyopia Ocular Medications: Restasis (-) Pain: (-) VINES: (-) Diplopia: (-) Flashes: (-) Floaters: (-) Amaurosis Fugax/Tia's: (-) Eye Injury: (-) Eye Surgery: (-) TBI FOHx: (-) Glaucoma/ARMD/Blindness VITALS (most recent, as listed in the electronic record): B/P: 135/80 (10/14/2023 08:55) Pulse: 98 (10/09/2023 08:49) Temperature: 98.1 F [36.7 C] (10/09/2023 08:49) Weight: 212.8 lb [96.52 kg] (10/09/2023 08:49) Height: 68 in [172.7 cm] (07/10/2023 15:01) BMI: BMI: 32.4 PERTINENT LABS: HEMOGLOBIN A1C TREND Collection DT Spec HGBA1c 10/09/2023 09:56 BLOOD 5.3 10/17/2022 08:06 BLOOD 5.1 08/31/2021 08:14 BLOOD 6.0 H 09/14/2020 12:09 BLOOD 5.3 12/19/2017 08:32 BLOOD 5.6 (-) Smoker/Length of Time/PPD: Current Rx with last BCVA: OD: +0.50-0.50 x090 20/20 OS: +0.75-1.25 x085 20/20 Add:+2.50 20/20 DVA ( )sc ( x )cc - phoropter OD: 20/ OS: 20/ Pupils: PERRL (-)APD EOMs: SAFE OU, (-)Pain/Diplopia CVF (facial, peripheral): FTFC OU Subjective Refraction: OD: +0.50-0.50 x090 20/20 OS: +0.75-1.25 x085 20/20 Add:+2.50 20/20 All the above performed by student, reviewed by attending Anterior segment: Performed by student, repeated by attending Lids: Dermatochalasis, 1+ capped MG with minimal expression with mild lid scallopping OU Conj: Mild Conjunctivochalasis OU Cornea: Turbid tear film with small coalesced SPKs OS>OD, mostly inferior 1/3 (-)k spindle OU AC: D&Q OU Angles: 4x4 OU Iris: flat and clear OU Lens: 1+ NSC, trc ACC with very small water vacuoles superiorly OD>OS (-)PXF OU Tonometry: Performed by student, reviewed by attending [x ] GAT [ ] iCare OD 17 mmHg OS 18 mmHg Time:8:05am Last IOP OD: 16 OS: 16 Fundus exam: Dilated: xxx Non dilated: Dilating Drops: 1GTT 1 % Tropicamide OU & 1GTT 2.5% Phenylephrine OU (Pt. ed. on side effects, dilation warning given and verbal consent obtained) Patient advised not to drive if they feel they have any symptoms which could affect their ability to drive safely. Patient advised not to engage in any activities which could put themselves or others at risk if they feel they have any symptoms which could affect their ability to perform those activities safely. Performed by student, repeated by attending Vit: clear OU C/D: 0.20 OU pink & healthy rim tissue Macula: flat and clear OU PPole: clear OU A/V: 2/3 Vessels: normal caliber OU Periph: flat and intact (-) holes, tears, detachments 360 OU (+) 2DD oval CHRPE at temporal ora seratta OS (-) high risk characteristic Assessment/Plan: 1. Combined Form Cataracts OU - Pt. ed. on findings - cataracts are not visually significant and that surgery is not necessary at this time - Ed. on importance of UV protection and on symptoms of glare - Continue to monitor 2. Dry eyes OU; symptomatic - Pt. ed. on todays findings - Ordering Restasis to use BID OU even on days when eyes are not feeling dry - Order Meagan mask to use at least 10min per day followed by vertical lid massage - Monitor 3. 1 isolated, typical CHRPE OS - No high risk characteristics - Pt ed on findings - Monitor 4. Hyperopia and presbyopia OU - Pt. ed. on todays findings - Ordering duplicate frames for computer - Monitor Return to Clinic 1yr or earlier PRN /genna/ SHELTON OLMOS OPTOMETRY STUDENT Signed: 03/12/2024 16:15 /es/ Kathy Rhodes OD CHIEF OF OPTOMETRY Cosigned: 03/13/2024 07:39 SHELTON OLMOS [facility]
--- OUTSIDE RECORDS SUMMARY | 2024-07-08 11:29 | XMS_ITS | Encounter Summary ---
Author Name [facility] [place] [facility] [place] [facility] [facility] [place] Address [address] [place] [address] Care Team Providers Care Circus Trainer Name Role Phone LASHELL BADILLO Primary Care [...] to Policy Hayden [employer]IG[employer] DENT[employer] DENTAL INSURANCE [facility] Apr 10, 2021 [id number] NORMA GALLO PATIENT [facility] D[facility]AL [facility] D Apr 10, 2021 [id number] NORMA GALLO PATIENT [employer]IG[employer] DENTAL DENTAL INSURANCE [facility]ENT[facility] L Apr 10, 2004 [id number] SABINO, NORMA PATIENT MEDICARE (WNR) MEDICARE (M) PART A Mar 10, 2017 PART A [id number] [phone] NORMA GALLO PATIENT MEDICARE (WNR) MEDICARE (M) PART B Mar 10, 2017 PART B [id number] NORMA GALLO PATIENT MEDICARE (WNR) MEDICARE (M) PART A Mar 10, 2017 PART A [id number] [facility] NORMA GALLO PATIENT MEDICARE (WNR) MEDICARE (M) PART B Mar 10, 2017 PART B [id number] [phone] NORMA GALLO PATIENT [facility] [place] PREFERRED PROVIDER ORGANIZAT ION (PPO) NAVIG ATOR BY [facility] Apr 10, 2006 [id number] NORMA GALLO PATIENT [employer] (OPT/PROF ) [facility] * Mar 10, 2017 [id number] NORMA GALLO PATIENT Selected Encounter This section includes the information on record at [place] for the Encounter. Date/Time Encounter Type Encounter Description Reason Provider Source May 21, 2024 09:00 AM MTMS BY VANDANA RAHMAN 15 MIN PAIN CLINIC ICD-10-CM M25.511 Pain in right shoulder SONIA GUERRAHANCary Sears [facility] Encounter Template Text not used by [place] Assessments - Encounter Diagnoses This section includes the primary and secondary diagnoses documented for the Encounter. Date/Time Primary/Secondary Diagnosis Diagnosis Name Provider Source May 21, 2024 09:34 AM PRIMARY Pain in right shoulder HUONG GUERRA [facility] May 21, 2024 09:34 AM SECONDARY Cervical disc disorder with myelopathy, unsp cervical region SONIA GUERRAHANCary Sears [facility] Plan of Treatment: Future Appointments (+ 6 months) and Future Tests (+/- 45 days) The Plan of Treatment section includes future care activities for the patient from all [place] treatmentfacilities. This section includes future appointments and future orders which are active, pending or scheduled. Future Appointments This section includes appointments that were scheduled to occur 6 months from the date of the Encounter, up to a maximum of 20 appointments. The data comes from all [place] treatment facilities. Appointment Date/Time Appointment Type Appointme nt Facility Name Jun 17, 2024 11:30 [facility] Jul 09, 2024 09:00 AM [facility] [place] [facility] Nov 07, 2024 10:00 AM AMBULATORY - MEDICINE [facility] Social History: Smoking Status (Most current) and Tobacco Use (All prior to encounter date) This section includes the most current, and the historical, smoking and tobacco- related health factors from the [place] facility where the Encounter took place. Current Smoking Status This section includes the most current smoking, or tobacco-related health factor, from the [place] facility where the Encounter took place. Date/Time Current Smoking Status Comment Facil ity Oct 09, 2023 08:30 AM VA-TOBACCO FORMER USER [place] [facility] [place] [facility] Tobacco Use History This section includes a history of the smoking, or tobacco-related health factors, that were collected on or before the date of the Encounter. The data comes from the [place] facility where the Encounter took place. Date/Time Smoking Status/Tobacco Use Comment F acility Oct 09, 2023 08:30 AM VA-TOBACCO QUIT 15 YRS OR MORE [facility] [place] [facility] Oct 27, 2022 12:11 PM VA-TOBACCO FORMER USER [facility] [place] [facility] Oct 27, 2022 12:11 PM VA-TOBACCO QUIT 15 YRS OR MORE [facility] [place] [facility] Oct 29, 2021 09:40 AM VA-TOBACCO FORMER USER [facility] [place] [facility] Oct 29, 2021 09:40 AM VA-TOBACCO QUIT 15 YRS OR MORE [facility] [place] [facility] Sep 14, 2020 11:21 AM VA-TOBACCO FORMER USER [facility] [place] [facility] Sep 14, 2020 11:21 AM VA-TOBACCO QUIT 5 TO < 15 YRS [place] [facility] [place] [facility] Encounter Notes: All associated encounter notes This section contains the clinical notes associated to the Encounter. Date/Time Encounter Note(s) Provider Source Jul 01, 2024 03:04 PM ACCOUNTING OF DISCLOSURES NOTE: LOCAL TITLE: STATE PRESCRIPTION DRUG MONITORING PROGRAM STANDARD TITLE: ACCOUNTING OF DISCLOSURES NOTE DATE OF NOTE: JUL 01, 2024@15:04:27 ENTRY DATE: JUL 01, 2024@15:04:27 AUTHOR: HUONG GUERRA COSIGNER: URGENCY: STATUS: COMPLETED This PDMP query was submitted by Huong Guerra The clinical justification for this PDMP query is to review controlled substances prescribed outside of the [facility], and any additional information that may become available, as an important component of standard clinical care, and in accordance with [facility] policy. Patient information was shared with the [facility] [place]. No prescription(s) for controlled substances outside the [facility] were found in the last 90 days. /evi GUERRA CLINICAL PHARMACIST PRACTITIONER, PAIN Signed: 07/01/2024 15:04 HUONG GUERRA [facility] Jun 03, 2024 08:40 AM ACCOUNTING OF DISCLOSURES NOTE: LOCAL TITLE: STATE PRESCRIPTION DRUG MONITORING PROGRAM STANDARD TITLE: ACCOUNTING OF DISCLOSURES NOTE DATE OF NOTE: JUN 03, 2024@08:40:48 ENTRY DATE: JUN 03, 2024@08:40:48 AUTHOR: HUONG GUERRA EXP COSIGNER: URGENCY: STATUS: COMPLETED This PDMP query was submitted by Huong Guerra The clinical justification for this PDMP query is to review controlled substances prescribed outside of the [facility], and any additional information that may become available, as an important component of standard clinical care, and in accordance with [facility] policy. [facility] [place]. No prescription(s) for controlled substances outside the [facility] were found in the last 90 days. /evi GUERRA CLINICAL PHARMACIST PRACTITIONER, PAIN Signed: 06/03/2024 08:41 HU[facility]RA [facility] May 21, 2024 08:22 AM PAIN MEDICINE OUTPATIENT NOTE: LOCAL TITLE: PAIN CLINIC NOTE STANDARD TITLE: PAIN MEDICINE OUTPATIENT NOTE DATE OF NOTE: MAY 21, 2024@08:22 ENTRY DATE: MAY 21, 2024@08:22:37 AUTHOR: HUONG GUERRA EXP COSIGNER: URGENCY: STATUS: COMPLETED [place] Video Connect (VVC) Standard Documentation VVC Clinician Resources Only: E911 (Emergency Call Relay Center): [phone] [facility] Crisis Line - 988 then press #1. CW Suicide Coordinator [phone], Ext. [phone]; Back-up Ext. [phone] [place] [employer], [place], [place] [phone] Introduction: Visit is being conducted by [place] Video Connect. identified with 2 identifiers: [X] Full Name [X] Date of [ ] VA ID Card Emergency Plan: confirmed and/or provided the following information in case of emergency or technology failure. PATIENT PHONE - PHONE NUMBER [CELLULAR] - NONE FOUND Is patient phone number correct, if not, enter below: Carter's phone number: Confirmed NORMA GALLO [address], [place], [address] 's present location and address for appointment: Confirmed 's emergency contact name and phone number: Anila () [phone] Carter reported that location is private and safe: Yes Informed Consent: informed of the risks and benefits of Telehealth video care. has the right to refuse video services. If refuses video visit, a [id number] visit will be scheduled. verbalized consent for this video visit: Yes provided consent for any other persons present for visit: N/A If yes, who and relationship to patient: Secure visit: Visit was locked for security and privacy:Yes NORMA Rae is 74 year old WHITE MALE with a history of right shoulder pain, who presents via C to pharmacy pain management clinic today for routine follow-up appointment. Carter was last seen in clinic on 04/09/24; no changes made at that encounter. SUBJECTIVE/OBJECTIVE: NORMA Rae presents to clinic seated at home in no apparent distress. He reports he has been alright since last encounter; he is stressed about current political situation. Shoulder pain is more bothersome d/t shoveling. He does take breaks while shoveling and his helps. Carter also reports he is coming due for knee injection which he has been receiving from [facility]. He is interested in receiving them through [place]; he will discuss with Dr. Ward at follow-up on 06/17/24. Overall, he reports pain is there but its tolerable . EVALUATION OF PAIN RELATED MEDICATIONS: -- A focused pain related medication reconciliation was performed. 1. Oxycodone 10mg QAM, 5mg QAfternoon, and 10mg QHS (last filled 05/13/24 for 28- days) - confirms taking as prescribed - He endorses benefit to help keep pain level manageable - He does not report any changes in sedation, fatigue, or constipation since last encounter. EVALUATION OF NON-PHARM MOADLITIES: ------- STRETCHING/EXERCISE: Walking daily - snow blowed a path around property so he is able continue walking PHYSICAL THERAPY: Consult for chronic right shoulder instability on 02/26/24; reports he is doing HEP daily OTHER: Completed home VR trial and purchased his own set. Helps him relax EVALUATION OF SOCIAL HISTORY: LEVEL OF ACTIVITY: Moderate. Tries to remain as active as possible TOBACCO USE: Denied. ALCOHOL USE: Occasionally; 1-2/week CANNABIS USE: Denied. Tried and disliked made him feel high OTHER ILLICIT SUBSTANCES: Denied 'S STATED MISSION/ASPIRATION/PURPOSE: What Matters Most: Participation. Being engaged with his family RISK MITIGATION: LONG-TERM CONSENT: Previously completed in 2014 NALOXONE: Last filled 08/06/23 UDS MONITORING: Completed 10/09/23; see assessment for interpretation of results PDMP: Last completed 04/30/23 with issuance of oxycodone rx C-SSRS: Completed 11/21/23; Carter screened negative OPIOID + BZD: Carter with history of limited PRN use of lorazepam (last filled 09/2023 for 30 tabs) for anxiety which he has done for many years. PMOP PAIN MEASURES: Self-Rated Health (SRH) Date Score 02/06/24 4 Pain Intensity, Interference with Enjoyment and General Activity (PEG-3) Date Score 02/06/24 4 Pain Self-Efficacy Questionnaire (PSEQ2) Date Score 02/06/24 10 Sleep Quality Scale (SQS) Date Score 02/06/24 5 Patient Health Questionnaire (PHQ-2) ------ Date Score 02/06/24 0 Generalized Anxiety Disorder-2 ([place]-2) Date Score 02/06/24 1 Well-Being Signs (WBS) Date Score 02/06/24 6.67 Concerns About Pain (UW-CAP-2): ------- Date Score 02/06/24 653.4 (T-score) AMOXICILLIN Active and Recently Outpatient Medications (excluding Supplies): Active Outpatient Medications Status 1) AMLODIPINE BESYLATE 5MG TAB TAKE ONE TABLET BY MOUTH ONCE ACTIVE (S) DAILY FOR BLOOD PRESSURE/HEART, DO NOT TAKE WITH GRAPEFRUIT JUICE Indication: FOR HIGH BLOOD PRESSURE 2) CLOTRIMAZOLE 1% TOP CREAM APPLY A MODERATE AMOUNT TOPICALLY ACTIVE TWICE DAILY FOR FUNGAL INFECTION Indication: FOR FUNGAL INFECTION OF THE SKIN 3) CYCLOSPORINE 0.05% (PF) OPH EMUL 0.4ML INSTILL 1 DROP INTO ACTIVE EACH EYE TWICE DAILY 4) FINASTERIDE 5MG TAB TAKE ONE TABLET BY MOUTH ONCE DAILY ACTIVE (S) Indication: FOR ENLARGED PROSTATE 5) LEVOTHYROXINE NA 150MCG TAB TAKE ONE TABLET BY MOUTH EVERY ACTIVE (S) MORNING 30 MINUTES BEFORE BREAKFAST TAKE ON AN EMPTY STOMACH WITH A FULL GLASS OF WATER Indication: FOR THYROID 6) LISINOPRIL 40MG TAB TAKE ONE TABLET BY MOUTH ONCE DAILY TO ACTIVE (S) CONTROL BLOOD PRESSURE Indication: FOR HIGH BLOOD PRESSURE 7) OXYCODONE HCL 5MG TAB NOT SA TAKE TWO TABLETS BY MOUTH ACTIVE EVERY MORNING AND TAKE ONE TABLET EVERY AFTERNOON AND TAKE TWO TABLETS AT BEDTIME Indication: FOR PAIN 8) SIMVASTATIN 40MG TAB TAKE ONE-HALF TABLET BY MOUTH ONCE ACTIVE DAILY FOR CHOLESTEROL Indication: FOR HIGH CHOLESTEROL 9) TAMSULOSIN HCL 0.4MG CAP TAKE ONE CAPSULE BY MOUTH ONCE ACTIVE (S) DAILY Indication: FOR ENLARGED PROSTATE 10) VALACYCLOVIR HCL 1GM TAB TAKE ONE TABLET BY MOUTH ONCE DAILY ACTIVE Indication: FOR INFECTION CAUSED BY A VIRUS Active Non-VA Medications Status 1) Non-VA MULTIVITAMIN/MINERALS CAP/TAB 1 TABLET BY MOUTH DAILY ACTIVE 11 Total Medications Active problems - Computerized Problem List is the source for the followin. Obesity ([facility] [id number]) 2. Acquired hypothyroidism 3. 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 Elevated PSA 6. Renal cyst 7. Essential hypertension 8. Diverticulosis 9. Allergic rhinitis 10. Shoulder pain 11. Neck pain 12. Anxiety disorder (SNOMED CT [id number]) 13. Keratoconjunctivitis sicca, not specified as Sjogren's 14. Tobacco Use Disorder, Remission 15. Dysthymia * 16. Hyperlipidemia * 17. Hypertrophy (Benign) of Prostate without Urinary obstruction 18. Closed dislocation of shoulder 19. Displacement of cervical intervertebral disc without myelopathy 20. Hypothyroidism ASSESSMENT: Mr. Gallo is a 74-year-old male with a history of chronic pain of the knees, neck, hands (carpal tunnel s/p surgery), and right shoulder. Comorbid conditions include HTN, thymoma, and anxiety. 's pain presentation appears slightly increased from last encounter likely d/t increase in exertional activity (shoveling). Despite this Carter continues to report current medication regimen and skills keep pain level tolerable. No medication changes made today. Commended good practices of daily walking and use of home VR for relaxation. Carter is scheduled for PM&R follow-up with Dr. Ward on 06/17/24. Advised to discuss his desire to receive knee injections through the [place] at that encounter. Carter stated he would do so. A shared decision-making approach was used in the development of this plan, involving the Carter and clinician present. The was provided the opportunity express questions or concerns, and the plan was adjusted as needed to address these concerns. Carter verbalized understanding of the plan, including possible known risks and benefits, and had no additional questions. PLAN: 1. Oxycodone 10mg QAM, 5mg QMidday, and 10mg QEvening - will contact clinic when renewal is needed 2. Encouraged 's good practices (daily walking and home VR) 3. will follow-up with Dr. Ward on 06/17/24 F/U via VVC in 6-8 weeks; Pt instructed to contact clinic with any questions or concerns prior to next encounter. Risk mitigation tools: 1. Long-Term Consent for Opioid Therapy completed 2014 for oxycodone 2. Education on naloxone kit use and s/sx of OIRD completed 07/2023 3. Annual UDS completed 10/09/23 4. PDMP queried and State Prescription Drug Monitoring note completed 04/30/24 Encounter Time: 30 minutes /genna/ HUONG GUERRA CLINICAL PHARMACIST PRACTITIONER, PAIN Signed: 05/21/2024 09:35 HUONG GUERRA [facility]
--- OUTSIDE RECORDS SUMMARY | 2024-07-08 11:30 | XMS_ITS | Encounter Summary ---
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 Name Role Phone LASHELL BADILLO Primary Care [...] to Policy Hayden [employer]IGNA DENTAL DENTAL INSURANCE [facility] Apr 10, 2021 [id number] NORMA GALLO PATIENT CIGNA DENTAL DENTAL INSURANCE [facility] Apr 10, 2021 [id number] [phone] NORMA GALLO PATIENT CIGNA DENTAL DENTAL INSURANCE [facility] Apr 10, 2004 [id number] SABINO, NORMA PATIENT MEDICARE (WNR) MEDICARE (M) PART A Mar 10, 2017 PART A [id number] NORMA GALLO PATIENT MEDICARE (WNR) MEDICARE (M) PART B Mar 10, 2017 PART B [id number] [phone] NORMA GALLO PATIENT MEDICARE (WNR) MEDICARE (M) PART A Mar 10, 2017 PART A [id number] NORMA GALLO PATIENT MEDICARE (WNR) MEDICARE (M) PART B Mar 10, 2017 PART B [id number] NORMA GALLO PATIENT [facility] PREFERRED PROVIDER ORGANIZAT ION (PPO) NAVIG ATOR BY [facility] Apr 10, 2006 [id number] NORMA GALLO PATIENT [employer] (OPT/PROF ) [facility] * Mar 10, 2017 [id number] NORMA GALLO PATIENT Selected Encounter This section includes the information on record at [place] for the Encounter. Date/Time Encounter Type Encounter Description Reason Provider Source Jun 17, 2024 11:30 AM OFFICE O/P EST HI 40 MIN PAIN CLINIC ICD-10-CM G89.4 Chronic pain syndrome NIKOLE BRAN [facility] Encounter Template Text not used by [place] Assessments - Encounter Diagnoses This section includes the primary and secondary diagnoses documented for the Encounter. Date/Time Primary/Secondary Diagnosis Diagnosis Name Provider Source Jun 17, 2024 12:23 PM PRIMARY Chronic pain syndrome NIKOLE BRAN [facility] [place] [facility] Jun 17, 2024 12:23 PM SECONDARY Pain in right shoulder NIKOLE BRAN [facility] [place] [facility] Jun 17, 2024 12:23 PM SECONDARY Paresthesia of skin NIKOLE BRAN [facility] [place] [facility] Jun 17, 2024 12:23 PM SECONDARY Unspecified hearing loss, unspecified ear NIKOLE BRAN [facility] [place] [facility] Plan of Treatment: Future Appointments (+ 6 months) and Future Tests (+/- 45 days) The Plan of Treatment section includes future care activities for the patient from all [place] treatmentfacilities. This section includes future appointments and future orders which are active, pending or scheduled. Future Appointments This section includes appointments that were scheduled to occur 6 months from the date of the Encounter, up to a maximum of 20 appointments. The data comes from all [place] treatment facilities. Appointment Date/Time Appointment Type Appointme nt Facility Name Jul 09, 2024 09:00 AM AMBULATORY - [place]ICINE [place] [facility] [place] [facility] Nov 07, 2024 10:00 AM [facility] Dec 16, 2024 11:30 AM AMBULATORY - [place]ICINE [place] [facility] [place] [facility] Social History: Smoking Status (Most current) and Tobacco Use (All prior to encounter date) This section includes the most current, and the historical, smoking and tobacco- related health factors from the [place] facility where the Encounter took place. Current Smoking Status This section includes the most current smoking, or tobacco-related health factor, from the [place] facility where the Encounter took place. Date/Time Current Smoking Status Comment Facil ity Oct 09, 2023 08:30 AM VA-TOBACCO QUIT 15 YRS OR MORE [place] [facility] Tobacco Use History This section includes a history of the smoking, or tobacco-related health factors, that were collected on or before the date of the Encounter. The data comes from the [place] facility where the Encounter took place. Date/Time Smoking Status/Tobacco Use Comment F acility Oct 09, 2023 08:30 AM VA-TOBACCO QUIT 15 YRS OR MORE [facility] [place] [facility] Oct 27, 2022 12:11 PM VA-TOBACCO FORMER USER [facility] [place] [facility] Oct 27, 2022 12:11 PM VA-TOBACCO QUIT 15 YRS OR MORE [facility] [place] [facility] Oct 29, 2021 09:40 AM VA-TOBACCO FORMER USER [facility] [place] [facility] Oct 29, 2021 09:40 AM VA-TOBACCO QUIT 15 YRS OR MORE [facility] [place] [facility] Sep 14, 2020 11:21 AM VA-TOBACCO FORMER USER [facility] [place] [facility] Sep 14, 2020 11:21 AM VA-TOBACCO QUIT 5 TO < 15 YRS [facility] [place] [facility] Encounter Notes: All associated encounter notes This section contains the clinical notes associated to the Encounter. Date/Time Encounter Note(s) Provider Source Jun 18, 2024 07:23 AM PAIN NOTE: LOCAL TITLE: PAIN MEASURE PMOP STANDARD TITLE: PAIN NOTE DATE OF NOTE: JUN 18, 2024@07:23:41 ENTRY DATE: JUN 18, 2024@07:23:41 AUTHOR: TO GUERRERO EXP COSIGNER: URGENCY: STATUS: COMPLETED Assessments were sent to the [employer] via text/email. These assessments were completed by NORMA GALLO on their own device on 06/17/2024 3:04:22 PM. PATIENT HEALTH QUESTIONNAIRE-2 (PHQ-2) Patient reported being bothered by the following over the last 2 weeks: 1. Little interest or pleasure: More than half the days 2. Feeling down, depressed or hopeless: More than half the days PHQ-2 score = 4 PHQ-2 result = POSITIVE PHQ-2 scores range from 0 to 6. The screening result is considered positive if the score >= 3. PHQ-2 Total Score (past 180 days): 06/17/2024 4 02/15/2024 0 02/06/2024 0 PHQ-2 Screen (past 180 days): 06/17/2024 true 02/15/2024 false 02/15/2024 False 02/06/2024 false 02/06/2024 False PAIN, ENJOYMENT OF LIFE AND GENERAL ACTIVITY (PEG) Patient rated the following on a scale from 0 to 10, over the past week: 1. Average pain (0=No pain - 10=Pain as bad as you can imagine): 7 2. Pain interference with enjoyment of life (0=Does not interfere - 10=Completely Interferes): 5 3. Pain interference with general activity (0=Does not interfere - 10=Completely Interferes): 5 PEG Average Score: 6 Scores are an average of the 3 items and range from 0 to 10. Higher scores represent worse pain. PEG Avg. Pain Score (past 180 days): 06/17/2024 6 02/15/2024 5 02/06/2024 4 PAIN SELF EFFICACY QUESTIONNAIRE-2 (PSEQ-2) Patient's confidence rating on a scale from 0 (Not at all confident) to 6 (Completely confident) that the following can be done at present despite the pain: 1. Do some form of work: 3 2. Live a normal lifestyle: 3 PSEQ-2 Total Score: 6 Scores range from 0 to 12. Scores >= 8 reflect pain self-efficacy that is likely to be associated with meaningful functional outcomes. PSEQ-2 Score (past 180 days): 06/17/2024 6 02/15/2024 9 02/06/2024 10 SLEEP QUALITY SCALE - 1 ITEM (SQS) During the past 7 days, how would you rate your sleep quality overall? 3 - Poor SQS Total score = 3 Scores range from 0 to 10, with higher scores indicating higher quality sleep. SQS Total Score (past 180 days): 06/17/2024 3 02/15/2024 4 02/06/2024 5 SELF-RATED HEALTH-1 ITEM (SRH) In general, would you say your health is: Fair SRH Total score = 4 Scores range from 1 to 5, with higher scores indicating worse perceived health. SRH Total Score (past 180 days): 06/17/2024 4 02/15/2024 4 02/06/2024 4 UW CONCERNS ABOUT PAIN-2 ITEM (UW-CAP-2) In the past 7 days... How often did you have the thought: my pain is more than I can manage: Sometimes How often did you think about how much it hurts: Often UW-CAP-2 Total Score (2-10) = 7 UW-CAP-2 T-score (0-100) = 57.3 Higher scores indicate higher worry about pain. UW-CAP-2 Total Score (past 180 days): 06/17/2024 7 02/15/2024 6 02/06/2024 6 UW-CAP-2 T-score (past 180 days): 06/17/2024 57.3 02/15/2024 53.4 02/06/2024 53.4 GENERALIZED ANXIETY DISORDER-2 ITEM ([place]-2) Over the last 2 weeks, how often have you been bothered by the following problems? Feeling nervous, anxious or on edge: More than half the days Not being able to stop or control worrying: Several days [place]-2 Total score = 3 Scores range from 0 to 6, with higher scores indicating higher levels of anxiety. [place]-2 Total Score (past 180 days): 06/17/2024 3 02/15/2024 1 02/06/2024 1 /genna/ TO GUERRERO DPT PHYSICAL THERAPIST Signed: 06/18/2024 12:54 Receipt Acknowledged By: * AWAITING SIGNATURE * NIKOLE BRAN [facility] 06/18/2024 14:43 /es/ CADEN FALLON, PH.D. CLINICAL HEALTH PSYCHOLOGIST TO GUERR[facility] [place] [facility] [place] [facility] Jun 17, 2024 11:32 AM PAIN TEAM NOTE: LOCAL TITLE: INTERDISCIPLINARY PAIN TEAM (IPT) PM&R NOTE STANDARD TITLE: PAIN TEAM NOTE DATE OF NOTE: JUN 17, 2024@11:32 ENTRY DATE: JUN 17, 2024@11:32:39 AUTHOR: NIKOLE BRAN EXP COSIGNER: URGENCY: STATUS: COMPLETED [place] [facility] Connect (VVC) Standard Documentation VVC Clinician Resources Only: E911 (Emergency Call Relay Center): [phone] National [employer] Crisis Line - 988 then press #1. [place] Suicide Coordinator [phone], Ext. [phone]; Back-up Ext. [phone] [place] Police, Nolan KAP[place]AN [phone] Introduction: Visit is being conducted by [place] [employer]. [employer] identified with 2 identifiers: [X] Full Name [X] Date of [ ] [place] ID Card Emergency Plan: [employer] confirmed and/or provided the following information in case of emergency or technology failure. PATIENT PHONE - PHONE NUMBER [CELLULAR] - [phone] Is patient phone number correct, if not, enter below: [employer]'s phone number: NORMA GALLO [address] [place] [address], [phone] [employer]'s present location and address for appointment: Home [employer]'s emergency contact name and phone number: in chart reported that location is private and safe: Yes Informed Consent: informed of the risks and benefits of Telehealth video care. has the right to refuse video services. If refuses video visit, a [id number] visit will be scheduled. [employer] verbalized consent for this video visit: Yes provided consent for any other persons present for visit: N/A If yes, who and relationship to patient: Secure visit: Visit was locked for security and privacy:Yes NORMA GALLO is a 74 y/o MALE who presents today for follow-up of chronic low back pain, shoulder pain, paresthesia of the upper extremity. - Attended PT consult but did not continue skilled therapy as everything they recommended, I've done multiple times before. - On oxycodone being prescribed by pain pharmacist - helpful. - Also taking Ibuprofen or Tylenol prn. - For hand neuropathy (which changes in location, and can be burning, tingling from the fingers up the forearm and elbow), he has tried elavil, duloxetine, pregabalin and gabapentin in the past without relief of neuropathic pain. Gabapentin caused s/e of turned me into an angry zombie . Prior carpal tunnel surgery was somewhat helpful for numbness, but not tingling. He was told that he has a brachial plexus issue (scalenus antecus syndrome) and was offered Botox, but did not want to pursue injection due to concerns of immune issues and side effects making things worse. - Has good coping strategies but still stressed due to getting the run around for paperwork submissions needed for [place]/disability. JONH is assisting with paperwork, but is also the one telling him that he keeps submitting the wrong paperwork. Not seeing MH - prefer individual counseling/interventions as he cannot do classes. When stressed, numbness/tingling of the upper extremities worsen. - Tried VR goggles with PT - bought one for home use as it is helpful. - Received cortisone injection for knee pain - helpful for the sharp pain, but still has aching pain. Con't to see [facility]. - Failed hearing test through C&P - no interventions were recommended. Trusted Medical: [address] [place] [address] PMHx, PSxHx, SocHx: reviewed in chart, unchanged. See prior notes including H&P for details. ALL: AMOXICILLIN MEDS: Active Outpatient Medications (including Supplies): AMLODIPINE BESYLATE 5MG TAB TAKE ONE TABLET BY MOUTH ONCE ACTIVE (S) DAILY FOR BLOOD PRESSURE/HEART, DO NOT TAKE WITH GRAPEFRUIT JUICE Indication: FOR HIGH BLOOD PRESSURE CLOTRIMAZOLE 1% TOP CREAM APPLY A MODERATE AMOUNT ACTIVE TOPICALLY TWICE DAILY FOR FUNGAL INFECTION Indication: FOR FUNGAL INFECTION OF THE SKIN CYCLOSPORINE 0.05% (PF) OPH EMUL 0.4ML INSTILL 1 DROP INTO ACTIVE EACH EYE TWICE DAILY FINASTERIDE 5MG TAB TAKE ONE TABLET BY MOUTH ONCE DAILY ACTIVE (S) Indication: FOR ENLARGED PROSTATE LEVOTHYROXINE NA 150MCG TAB TAKE ONE TABLET BY MOUTH EVERY ACTIVE (S) MORNING 30 MINUTES BEFORE BREAKFAST TAKE ON AN EMPTY STOMACH WITH A FULL GLASS OF WATER Indication: FOR THYROID LISINOPRIL 40MG TAB TAKE ONE TABLET BY MOUTH ONCE DAILY TO ACTIVE (S) CONTROL BLOOD PRESSURE Indication: FOR HIGH BLOOD PRESSURE OXYCODONE HCL 5MG TAB NOT SA TAKE TWO TABLETS BY ACTIVE MOUTH EVERY MORNING AND TAKE ONE TABLET EVERY AFTERNOON AND TAKE TWO TABLETS AT BEDTIME NEXT FILL 07/08/24 Indication: FOR PAIN SIMVASTATIN 40MG TAB TAKE ONE-HALF TABLET BY MOUTH ONCE ACTIVE DAILY FOR CHOLESTEROL Indication: FOR HIGH CHOLESTEROL TAMSULOSIN HCL 0.4MG CAP TAKE ONE CAPSULE BY MOUTH ONCE ACTIVE (S) DAILY Indication: FOR ENLARGED PROSTATE VALACYCLOVIR HCL 1GM TAB TAKE ONE TABLET BY MOUTH ONCE ACTIVE DAILY Indication: FOR INFECTION CAUSED BY A VIRUS Non-VA MULTIVITAMIN/MINERALS CAP/TAB 1 TABLET BY MOUTH ACTIVE DAILY 11 Total Medications ROS: Constitutional - Denies fever or chills. PHYSICAL EXAMINATION: GEN: WD, WN. Awake, alert, cooperative with exam. In NAD. PSYCH: Good eye contact. Anxious. Appropriate affect and social interaction. CVS: Extremities warm/well perfused. No lower extremity edema. PULM: Breathing unlabored, no accessory muscle use. MUSCULOSKELETAL EXAM: Rounded shoulders, poor posture. Seated upright. NEURO: AAO x3. No UE tremors. Diagnostic Studies: I personally reviewed the following: Right shoulder MRI 11/15/2019: Mild supraspinatus tendinosis/calcific tendinitis. Mild to moderate AC joint arthritis without spurring. Labral tear suspected in the superior, inferior and posterior labrum. Mild thickening of the posterior aspect of the inferior glenohumeral ligament/capsule. Per [facility]'s Ortho note on 08/23/2023, imaging in the office showed severe end- stage osteoarthritis of bilateral knees, mainly affecting the medial joint space. JUN 25, 2015 SPINE CERVICAL, 2 0R 3 VIEWS Technique: AP, lateral, open-mouth, swimmer's views of the cervical spine Findings: Reverse curvature of the cervical spine with apex at C5-C6. Osteophytes and disc space narrowing at C5-C6 and C6-C7. C6-C7 is not well visualized. Mild loss of vertebral body height at C5 and C6. Osteophytes are present at multiple levels. C1-C2 relationship is maintained. Prevertebral soft tissue is normal. Visualized upper lungs are clear. Soft tissue calcification posterior to the neck at the level of C5-C6. Impression: 1. No significant change. Cervical spondylosis most prominent at C5-C6 and C6-C7. 2. Consider further evaluation with MRI of the cervical spine for patient's symptom if there is no contraindication. ASSESSMENT/PLAN: Patient is a 74 yo male with chronic pain syndrome. Chronic right shoulder pain and subluxation is due to rotator cuff calcific tendinopathy and labral tear, cervical spondylosis is most prominent at C5-6 and C6-7, end-stage knee osteoarthritis bilaterally, and right first CMC arthritis. Overall, patient has good coping strategies but could use additional MH support, as MH conditions are contributing to chronic pain syndrome. Patient also reported failing his recent C&P hearing test, which is not related to chronic pain but I will assist patient as best as I can to get the [place] services he needs. - I will reach out to Dr. Fallon (Psychologist) to discuss individual MH services with patient. AMP class was previously discussed, but patient cannot do group classes. - Con't oxydone prn, being managed by pain pharmacist. Con't Tylenol and Ibuprofen prn. - Con't VR goggles - has one at home as it is helpful. - Track down audiology C&P exam results ([facility] [phone]) - may need Audiology eval/tx. - Can trial gralise, lamotrigine or depakote for neuropathic pain. Will discuss with pain pharmacist. - Con't daily walking 2 miles/day. - Con't [facility] care for knee pain. If desired, [facility] time. - Discussed trial of trigger point injection into the right scalenes to see if right arm paresthesia improves. If it does, Botox can be provided. Discussed potential benefits and risks of Botox, as previously recommended by other providers as well, and provided reassurance of very few risks, but patient declined for now. - [facility] touch survey sent - patient agreed to complete and return. FOLLOW-UP: 6 months, or sooner if needed. Potential risks and side effects of any medication(s) prescribed today was reviewed with . Patient's questions were answered to the best of my ability and to patient's apparent satisfaction. Vet expressed understanding and agreement with above plan. MDM: 45 minutes which includes reviewing records, evaluating patient, documenting in medical record, educating, counseling and coordinating care. Medication Reconciliation: Outpatient: Has the patient been [...] whether with a VA or non-VA provider. /genna/ NIKOLE BRAN DO PLASTICS PROCESS HAND Signed: 06/17/2024 12:23 NIKOLE BRAN [place] [facility]
--- OUTSIDE RECORDS SUMMARY | 2024-07-08 11:30 | XMS_ITS | Encounter Summary ---
Author Name [facility] [place] Address [address] [place] [address] Care Team Providers Care Assistant Manager Quality Management Name Role Phone LSAHELL BADILLO Primary Care Provide r Unavailable Insurance [...] to Policy Hayden CIGNA DENTAL DENTAL INSURANCE [facility] Apr 10, 2021 [id number] [phone] NORMA GALLO PATIENT CIGNA DENTAL DENTAL [facility]ANCE [facility] Apr 10, 2021 [id number] [phone] NORMA GALLO PATIENT CIGNA DENTAL DENTAL INSURANCE [facility] [facility] Apr 10, 2004 [id number] [phone] SABINO, NORMA PATIENT MEDICARE (WNR) MEDICARE (M) PART A Mar 10, 2017 PART A [id number] NORMA GALLO PATIENT MEDICARE (WNR) MEDICARE (M) PART B Mar 10, 2017 PART B [id number] NORMA GALLO PATIENT MEDICARE (WNR) MEDICARE (M) PART A Mar 10, 2017 PART A [id number] [facility] NORMA GALLO PATIENT MEDICARE (WNR) MEDICARE (M) PART B Mar 10, 2017 PART B [id number] [phone] [id number] NORMA GALLO PATIENT [facility] PREFERRED PROVIDER ORGANIZAT ION (PPO) NAVIG ATOR BY [facility] Apr 10, 2006 [id number] NORMA GALLO PATIENT [employer] (OPT/PROF ) [facility] IN[facility] * Mar 10, 2017 [id number] NORMA GALLO PATIENT Selected Encounter This section includes the information on record at [place] for the Encounter. Date/Time Encounter Type Encounter Description Reason Provider Source Mar 05, 2024 09:00 AM MTMS BY VANDANA RAHMAN 15 MIN PAIN CLINIC ICD-10-CM M25.511 Pain in right shoulder KALANI GUERRA [facility] Encounter Template Text not used by [place] Assessments - Encounter Diagnoses This section includes the primary and secondary diagnoses documented for the Encounter. Date/Time Primary/Secondary Diagnosis Diagnosis Name Provider Source Mar 05, 2024 09:20 AM PRIMARY Pain in right shoulder [facility] [place] [facility] Mar 05, 2024 09:20 AM SECONDARY Cervical disc disorder with myelopathy, unsp cervical region CHARLIEKALANI Sears [facility] Plan of Treatment: Future Appointments (+ 6 months) and Future Tests (+/- 45 days) The Plan of Treatment section includes future care activities for the patient from all [place] treatmentfacilities. This section includes future appointments and future orders which are active, pending or scheduled. Future Appointments This section includes appointments that were scheduled to occur 6 months from the date of the Encounter, up to a maximum of 20 appointments. The data comes from all [place] treatment facilities. Appointment Date/Time Appointment Type Appointme nt Facility Name Mar 12, 2024 08:00 AM [facility]UL[facility] [place] [facility] Apr 09, 2024 09:00 AM AMBULATORY - MEDICINE [facility] [place] [facility] May 02, 2024 10:00 AM AMBULATORY - MEDICINE [facility] May 21, 2024 09:00 AM AMBULATORY - MEDICINE [place] [facility] [place] [facility] Jun 17, 2024 11:30 AM AMBULATORY - MEDICINE [place] [facility] [place] [facility] Jul 09, 2024 09:00 AM AMBULATORY - MEDICINE [place] [facility] [place] [facility] Social History: Smoking Status (Most current) and Tobacco Use (All prior to encounter date) This section includes the most current, and the historical, smoking and tobacco- related health factors from the [place] facility where the Encounter took place. Current Smoking Status This section includes the most current smoking, or tobacco-related health factor, from the [place] facility where the Encounter took place. Date/Time Current Smoking Status Comment Facil ity Oct 09, 2023 08:30 AM VA-TOBACCO FORMER USER [place] [facility] [place] [facility] Tobacco Use History This section includes a history of the smoking, or tobacco-related health factors, that were collected on or before the date of the Encounter. The data comes from the [place] facility where the Encounter took place. Date/Time Smoking Status/Tobacco Use Comment F acility Oct 09, 2023 08:30 AM VA-TOBACCO QUIT 15 YRS OR MORE [facility] [place] [facility] Oct 27, 2022 12:11 PM VA-TOBACCO FORMER USER [facility] [place] [facility] Oct 27, 2022 12:11 PM VA-TOBACCO QUIT 15 YRS OR MORE [facility] [place] [facility] Oct 29, 2021 09:40 AM VA-TOBACCO FORMER USER [facility] [place] [facility] Oct 29, 2021 09:40 AM VA-TOBACCO QUIT 15 YRS OR MORE [facility] [place] [facility] Sep 14, 2020 11:21 AM VA-TOBACCO FORMER USER [facility] [place] [facility] Sep 14, 2020 11:21 AM VA-TOBACCO QUIT 5 TO < 15 YRS [facility] [place] [facility] Encounter Notes: All associated encounter notes This section contains the clinical notes associated to the Encounter. Date/Time Encounter Note(s) Provider Source Mar 14, 2024 08:41 AM ACCOUNTING OF DISCLOSURES NOTE: LOCAL TITLE: STATE PRESCRIPTION DRUG MONITORING PROGRAM STANDARD TITLE: ACCOUNTING OF DISCLOSURES NOTE DATE OF NOTE: MAR 14, 2024@08:41:09 ENTRY DATE: MAR 14, 2024@08:41:09 AUTHOR: KALANI GUERRA EXP COSIGNER: URGENCY: STATUS: COMPLETED This PDMP query was submitted by Kalani Guerra. The clinical justification for this PDMP query is to review controlled substances prescribed outside of the VA, and any additional information that may become available, as an important component of standard clinical care, and in accordance with [facility] policy. Patient information was shared with the PDMP Appriss [place]. No prescription(s) for controlled substances outside the VA were found in the last 90 days. /genna/ KALANI GUERRA CLINICAL PHARMACIST PRACTITIONER, PAIN Signed: 03/14/2024 08:41 KALANI GUERRA [place] [facility] [place] [facility] Mar 05, 2024 08:08 AM PAIN MEDICINE OUTPATIENT NOTE: LOCAL TITLE: PAIN CLINIC NOTE STANDARD TITLE: PAIN MEDICINE OUTPATIENT NOTE DATE OF NOTE: MAR 05, 2024@08:08 ENTRY DATE: MAR 05, 2024@08:09:01 AUTHOR: KALANI GUERRA EXP COSIGNER: URGENCY: STATUS: COMPLETED [place] [facility] (VVC) Standard Documentation VV Clinician Resources Only: E911 (Emergency Call Relay Center): [phone] National Veterans Crisis Line - 9[address] #[address] [facility] Suicide Coordinator [phone], Ext. [phone]; Back-up Ext. [phone] [place] Police, Nolan KAPLAN [phone] Introduction: Visit is being conducted by [employer]. identified with 2 identifiers: [X] Full Name [X] Date of [ ] VA ID Card Emergency Plan: Glyndon confirmed and/or provided the following information in case of emergency or technology failure. PATIENT PHONE - PHONE NUMBER [CELLULAR] - NONE FOUND Is patient phone number correct, if not, enter below: Glyndon's phone number: confirmed NORMA GALLO [address] [place] [address], [phone] Glyndon's present location and address for appointment: confirmed Glyndon's emergency contact name and phone number: Kaye () [phone] reported that location is private and safe: Yes Informed Consent: informed of the risks and benefits of Telehealth video care. has the right to refuse video services. If refuses video visit, a [id number] visit will be scheduled. verbalized consent for this video visit: Yes provided consent for any other persons present for visit: N/A If yes, who and relationship to patient: Secure visit: Visit was locked for security and privacy:Yes NORMA Rae is 73 year old WHITE MALE with a history of right shoulder pain, who presents via VVC to pharmacy pain management clinic today for routine follow-up appointment. Alonso was last seen in pain clinic on 02/12/24 by Interdisciplinary Pain Team. SUBJECTIVE/OBJECTIVE: NORMA Rae presented to clinic today seated at home in no apparent distress. Reviewed recent IPT appointment with Glyndon, states it went good I guess . He started using the VR headset at home daily as instructed but finds the application keeps freezing and skipping ahead, now about 2 weeks ahead of schedule in the program. He met with PT on 02/25 and received HEP. He endorses doing the exercises at home which sometimes aggravates the pain but overall has not noticed significant difference yet. EVALUATION OF PAIN RELATED MEDICATIONS: -- A focused pain related medication reconciliation was performed. 1. Lorazepam 0.5mg daily PRN (last filled 09/13/23 for 30-days) 2. Oxycodone 10mg (5mg x 2 tabs) BID PRN (last filled 02/26/24 for 28-days) - Glyndon had been trying to decrease to 3 tabs daily but the cooler weather is aggravating to the pain. He is currently taking 2 BID. - Doesn't provide much benefit by mid-day NOTE: #1 immediately above is a psychiatric medication and is included in this list because of the potential effect on reducing pain. EVALUATION OF NON-PHARM MOADLITIES: ------- STRETCHING/EXERCISE: Walking daily PHYSICAL THERAPY: Consult for chronic right shoulder instability on 02/26/24; provider HEP OTHER: VR trial EVALUATION OF SOCIAL HISTORY: LEVEL OF ACTIVITY: [...] for interpretation of results PDMP: Last completed 02/20/24 with issuance of oxycodone rx C-SSRS: Completed 11/21/23; screened negative OPIOID + BZD: on stable dose of both opioid and bzd for some years. Review of refill history suggests limited use of BZD PMOP PAIN MEASURES: Self-Rated Health (SRH) Date Score 02/06/24 4 Pain Intensity, Interference with Enjoyment and General Activity (PEG-3) Date Score 02/06/24 4 Pain Self-Efficacy Questionnaire (PSEQ2) Date Score 02/06/24 10 Sleep Quality Scale (SQS) Date Score 02/06/24 5 Patient Health Questionnaire (PHQ-2) ------ Date Score 02/06/24 0 Generalized Anxiety Disorder-2 ([place]-2) Date Score 02/06/24 1 Well-Being Signs (WBS) Date Score 02/06/24 6.67 UW Concerns About Pain (UW-CAP-2): ------- Date Score 02/06/2453.4 (T-score) AMOXICILLIN Active and Recently Outpatient Medications [...] ACTIVE DAILY TO CONTROL BLOOD PRESSURE 6) LORAZEPAM 0.5MG TAB TAKE ONE TABLET BY MOUTH ONCE ACTIVE DAILY NEEDED FOR ANXIETY/NERVES 7) OXYCODONE HCL 5MG TAB NOT SA TAKE TWO TABLETS ACTIVE BY MOUTH TWICE DAILY NEEDED NEXT FILL 03/27 8) SIMVASTATIN 40MG TAB TAKE ONE-HALF TABLET BY MOUTH ACTIVE ONCE DAILY FOR CHOLESTEROL 9) TAMSULOSIN HCL 0.4MG CAP TAKE ONE CAPSULE BY MOUTH ACTIVE ONCE DAILY FOR ENLARGED PROSTATE 10) VALACYCLOVIR HCL 1GM TAB TAKE ONE TABLET BY MOUTH ACTIVE ONCE DAILY FOR INFECTION CAUSED BY A VIRUS Inactive Outpatient Medications Status 1) CYCLOSPORINE 0.05% (PF) OPH EMUL 0.4ML INSTILL 1 DROP INTO EACH EYE TWICE DAILY Active Non-VA Medications Status 1) Non-VA MULTIVITAMIN/MINERALS CAP/TAB 1 TABLET BY ACTIVE MOUTH DAILY 12 Total Medications Active problems - Computerized Problem List is the source for the followin. Obesity ([facility] [id number]) 2. Acquired hypothyroidism 3. 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 Elevated PSA 6. Renal cyst 7. Essential hypertension 8. Diverticulosis 9. Allergic rhinitis 10. Shoulder pain 11. Neck pain 12. Anxiety disorder (SNOMED CT [id number]) 13. Keratoconjunctivitis sicca, not specified as Sjogren's 14. Tobacco Use Disorder, Remission 15. Dysthymia * 16. Hyperlipidemia * 17. Hypertrophy (Benign) of Prostate without Urinary obstruction 18. Closed dislocation of shoulder 19. Displacement of cervical intervertebral disc without myelopathy 20. Hypothyroidism ASSESSMENT: Mr. Gallo is a 73-year-old male with a history of chronic pain of the knees, neck, hands (carpal tunnel s/p surgery), and right shoulder. Comorbid conditions include HTN, thymoma, and anxiety. 's pain presentation is perhaps a bit more increased in intensity from prior encounter. Likely related to change in weather and increased movement associated with HEP. Reasonable to trial use of additional dose of oxycodone (5mg) midday to help manage pain. This may make it easier for to engage in his HEP. Notably, did trial use of Butrans patches but developed possible allergic reaction therefore use of discontinued. Glyndon would like to trial oxycodone 10mg QAM, 5mg Qmidday, and 10mg QEvening. Instructed he may make adjustment using supply of oxycodone that he received last week. He continues to demonstrate a good understanding of potential risks vs. benefit of therapy. He will contact clinic prior to renewal of oxycodone to allow for brief reassessment of medication prior to entering prescription. Reviewed with Glyndon the additional recommendations made by IPT. seems to have some interest in AMP but is hesitant to commit. Will continue to review interest at follow-up. After appointment reached out to Dr. June regarding Glyndon's issues with home VR set. She will reach out to area representative to help assist . A shared decision-making approach was used in the development of this plan, involving the Glyndon and clinician present. The was provided the opportunity express questions or concerns, and the plan was adjusted as needed to address these concerns. verbalized understanding of the plan, including possible known risks and benefits, and had no additional questions. PLAN: 1. Trial Oxycodone 10mg QAM, 5mg Qmidday and 10mg QEvening - Glyndon will make adjustment with supply on hand - Glyndon will alert clinic through secure message/VM prior to renewal to allow for brief check-in of dose adjustment 2. Glyndon will continue to participate in home VR trial and HEP - Dr. June will reach out to VR representation to help assist F/U via VVC in 4 weeks; Pt instructed to contact clinic with any questions or concerns prior to next encounter. Risk mitigation: 1. Long-Term Consent for Opioid Therapy completed 2014 for oxycodone 2. Education on naloxone kit use and s/sx of OIRD completed 07/2023 3. Annual UDS completed 10/09/23 4. PDMP queried and State Prescription Drug Monitoring note completed 02/19/34 Encounter Time: 30 minutes /genna/ KALANI GUERRA CLINICAL PHARMACIST PRACTITIONER, PAIN Signed: 03/05/2024 14:42 KALANI GUERRA [place] [facility]
--- OUTSIDE RECORDS SUMMARY | 2024-07-08 11:30 | XMS_ITS | Encounter Summary ---
Author Name [place] Address [address] [place] [address] Care Team Providers Care Technician Terminal And Repeater Name Role Phone LASHELL BADILLO Primary Care [...] Policy Hayden CIGNA DENTAL DENTAL INSURANCE [facility] Apr 10, 2021 [id number] NORMA GALLO PATIENT CIGNA DENTAL DENTAL INSURANCE [facility] D Apr 10, 2021 [id number] NORMA GALLO PATIENT CIGNA DENTAL DENTAL INSURANCE [place] L Apr 10, 2004 [id number] [phone] SABINO, NORMA PATIENT MEDICARE ([facility]) MEDICARE (M) PART A Mar 10, 2017 PART A [id number] NORMA GALLO PATIENT MEDICARE ([facility]) MEDICARE (M) PART B Mar 10, 2017 PART B [id number] NORMA GALLO PATIENT MEDICARE (WNR) MEDICARE (M) PART A Mar 10, 2017 PART A [id number] NORMA GALLO PATIENT MEDICARE (WNR) MEDICARE (M) PART B Mar 10, 2017 PART B [id number] NORMA GALLO [facility]IENT [facility] PREFERRED PROVIDER ORGANIZAT ION (PPO) NAVIG ATOR BY [facility] Apr 10, 2006 [id number] NORMA GALLO PATIENT [employer] (OPT/PROF ) [facility] * Mar 10, 2017 [id number] NORMA GALLO PATIENT Selected Encounter This section includes the information on record at [place] for the Encounter. Date/Time Encounter Type Encounter Description Reason Pro vider Source September 01, 2023 10:41 AM Outpatient Encounter COMMUNITY CARE CONSULT IHE Encounter Template Text not used by [place] Plan of Treatment: Future Appointments (+ 6 months) and Future Tests (+/- 45 days) The Plan of Treatment section includes future care activities for the patient from all [place] treatmentfacilities. This section includes future appointments and future orders which are active, pending or scheduled. Future Appointments This section includes appointments that were scheduled to occur 6 months from the date of the Encounter, up to a maximum of 20 appointments. The data comes from all [place] treatment facilities. Appointment Date/Time Appointment Type Appointme nt Facility Name Oct 09, 2023 08:30 AM [facility] Oct 19, 2023 10:30 AM AMBULATORY - SURGERY [place] [facility] [place] [facility] Nov 21, 2023 11:00 AM AMBULATORY - MEDICINE [place] C [facility] [place] [facility] Dec 05, 2023 09:00 AM AMBULATORY - MEDICINE [place] [facility] [place] [facility] Jan 09, 2024 01:00 PM AMBULATORY - MEDICINE [place] [facility] [place] [facility] Feb 06, 2024 09:00 AM AMBULATORY - MEDICINE [place] [facility] [place] [facility] Feb 12, 2024 08:30 AM AMBULATORY - MEDICINE [place] [facility] [place] [facility] Feb 12, 2024 09:30 AM AMBULATORY - MEDICINE [place] [facility] [facility] Feb 12, 2024 10:30 AM AMBULATORY - MEDICINE [place] [facility] [facility] Feb 15, 2024 09:00 AM AMBULATORY - MEDICINE [place] [facility] [facility] Feb 26, 2024 08:00 AM AM[facility]ULATORY - [facility] Feb 27, 2024 08:45 AM [facility] Social History: Smoking Status (Most current) and Tobacco Use (All prior to encounter date) This section includes the most current, and the historical, smoking and tobacco- related health factors from the [place] facility where the Encounter took place. Current Smoking Status This section includes the most current smoking, or tobacco-related health factor, from the [place] facility where the Encounter took place. Date/Time Current Smoking Status Comment Facil ity Oct 27, 2022 12:11 PM VA-TOBACCO QUIT [facility]RS [facility] Tobacco Use History This section includes a history of the smoking, or tobacco-related health factors, that were collected on or before the date of the Encounter. The data comes from the [place] facility where the Encounter took place. Date/Time Smoking Status/Tobacco Use Comment F acility Oct 27, 2022 12:11 PM VA-TOBACCO QUIT 15 YRS OR MORE [place] [facility] [facility] Oct 29, 2021 09:40 AM VA-TOBACCO FORMER USER [place] [facility] [place] [facility] Oct 29, 2021 09:40 AM VA-TOBACCO QUIT 15 YRS OR MORE [place] [facility] [place] [facility] Sep 14, 2020 11:21 AM VA-TOBACCO FORMER USER [place] [facility] [place] [facility] Sep 14, 2020 11:21 AM VA-TOBACCO QUIT 5 TO < 15 YRS [place] [facility] [facility] Encounter Notes: All associated encounter notes This section contains the clinical notes associated to the Encounter. Date/Time Encounter Note(s) Provider Source September 01, 2023 10:41 AM ADMINISTRATIVE NOTE: LOCAL TITLE: ADMINISTRATIVE NOTE STANDARD TITLE: ADMINISTRATIVE NOTE DATE OF NOTE: SEPTEMBER 01, 2023@10:41 ENTRY DATE: SEPTEMBER 01, 2023@10:41:58 AUTHOR: RONCONI,EDITH ANG EXP COSIGNER: URGENCY: STATUS: COMPLETED [facility] provider: [facility] Thoracic Surgery [address] [place] [address] , [address] [facility] [address] Fax for New Referrals only: [phone] Group appt. 10/19/2023 at 10:30 AM Requesting new consult for continuity of care. *Alert to PACT for new CC Thoracic Consult if in agreement. Thank you. /genna/ EDITH ESPAÑA [facility] RN Signed: 09/01/2023 10:44 Receipt Acknowledged By: 09/01/2023 12:03 /es/ CAROL VILCHIS RN REGISTERED NURSE 09/01/2023 15:54 /es/ LASHELL BADILLO MD PHYSICIAN EDITH ESPAÑA [place] [facility]
--- OUTSIDE RECORDS SUMMARY | 2024-07-08 11:30 | XMS_ITS | Data Portability ---
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 He was initially doing some decorating was standing on a bucket. He slipped and fell. This was in June. He has significant exacerbation of pain. He denies any mechanical locking or popping. He reports symptoms have been persistent. He takes oxycodone for chronic shoulder pain. He has not had intra-articular steroid or viscosupplementat ion. He had an MRI ordered at the [place] which showed evidence of degenerative meniscus tears. The patient's knee symptom profile form was reviewed and is part of the medical record. The patient remains symptomatic and has had an unsuccessful history of appropriate conservative therapy (non-surgical medical management). Non-surgical medical management has been implemented for 3 months or more to assess effectiveness. Conservative treatment as clinically appropriate for the patient? s current episode of care including, but not limited to, one or more of the following: anti-inflammatory medications, analgesics, flexibility and muscle strengthening exercises, supervised physical therapy (Activities of daily living (ADLs) diminished despite completing a plan of care), activity restrictions as is reasonable, assistive device use, weight reduction as appropriate, and therapeutic injections into the joint as appropriate PFMSH and ROS have been reviewed, updated, and is located in the patient? s chart. PAST MEDICAL HISTORY: Past medical history is significant for hypercholesterole clemencia, hypertension, prostate problems, thyroid problems, neck pain PAST SURGICAL HISTORY: Past surgical history includes thymus surgery, carpal tunnel release, hernia surgery MEDICATIONS: Please see intake form. ALLERGIES: Patient reports an allergy to amoxicillin does not report an allergy to metal, latex, Iodine, tape, or adhesives. SOCIAL HISTORY: The patient is retired. He quit smoking 30 years ago. He consumes 4 ounces of wine per day. He is he comes the office today with his . He is last saw the dentist in June. PHYSICAL EXAMINATION: Please see vitals recorded below Mental status: Alert and lucid. Normal insight, affect, and grooming. 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 No spasticity or clonus noted. Extremities: Calves are soft and nontender. Skin intact. Palpable pedal pulses equal bilaterally. ORTHOPEDIC EXAMINATION: Negative SLR tests bilaterally. Full ROM of both hips without pain. No trochanteric tenderness. Evaluation of knees: Bilateral Knee range of motion is 0-120 degrees. Knee is stable to varus/valgus loading, anterior/posterio r drawer testing, Braxton testing. No erythema, no redness. There is moderate sub patellar crepitus. Peripheral vascular, lymphatic examination, skin, neurological coordination, reflexes, and sensation are within normal limits. IMAGING: X-rays ordered, obtained, and reviewed today on [facility] PACS: Weight bearing AP of Both knees, Beasley view of Both Knees, [place] View of Both Knees, and Lateral of the Bilateral knee; demonstrate severe end-stage osteoarthritis of the Bilateral knee. There is cwte-ax-vbew articulation medially, subchondral sclerosis, osteophyte formation. There is varus deformity and there isModerate patellofemoral involvement. There is Kellgren Kash grade 4 osteoarthritis. IMPRESSION: Bilateral knee end-stage osteoarthritis right more symptomatic than left PLAN: I reviewed with the patient surgical and nonsurgical means to control symptoms. At this point the patient's symptoms are persistent. MRI demonstrates evidence of a large degenerative meniscus tear. However, patient is not having mechanical symptoms. Review of weightbearing x-rays show some fairly notable joint space loss. I would be concerned because the patient is not having mechanical symptoms that arthroscopy would not provide satisfactory response. Patient has had no conservative management at this point. I recommended we begin with an intra-articular steroid injection. Patient understands that if symptoms progress he might be candidate for total knee arthroplasty. If he develops mechanical symptoms he should contact us and we will consider arthroscopy. The he understands he can have corticosteroid as often as every 3 months. Patient knows I will be happy to meet with them at any time in order to review any additional questions or concerns that they might have. Patient was satisfied with this plan. I attempted to answer all of the patient's questions. [facility] speech recognition language translator software was used to create portions of this document. An attempt at proofreading has been made to minimize errors. Please call for corrections. [email or web address] Not available 08/24/2023 16:53:32 Plan of Treatment Reminders Order Date Submit Date Provider Last Modified By Organization Details Last Modified Time Details Appointments NEW PATIENT 15 2024 10:00A M Marielos Mixon PA-C Not available Not available Not available Lab None recorded . Referral None recorded . Procedures None recorded . Surgeries None recorded . Imaging XR, knee, 4 or more view - RM 206//MELVIN ATERAL KNEE PAIN 2023 024 [email or web address] Jacki [facility], [address], [place], [address], 09/14/2023 10:37:46 Medication Orders None recorded . Patient TargetsNo targets recorded. Patient InstructionsNo instructions recorded. Reason for Referral None Reported. Problems Name Problem SNOMED Code Status Onset Date Resolution Date Notes Provider Name and Address Organization Details Recorded Time Bilateral osteoarthri tis of knees 5745268003099 07 Active 2023 Wilton Saavedra MD [address], [place], [address], [facility] 4 16:49:32 Problem Notes None recorded. Procedures Surgical History Date Name Laterality Status Provider Name and Address Organization Details Recorded Time 5 Knee Kenalog 40 1cc Injection, Bilateral completed Daniella Mcgowan PA-C [address], [place], [address], [facility] 05/23/2024 16:33:23 4 Knee Kenalog 40 1cc Injection, Bilateral completed Daniella Glez PA-C [address], [place], [address], [facility] 02/26/2024 13:06:17 4 Knee Kenalog 40 1cc Injection, Bilateral completed Daniella Glez PA-C [address], [place], [address], [facility] 11/22/2023 12:47:48 4 Knee Kenalog 40mg 2cc Injection, L/R completed Wilton Saavedra MD [address], [place], [address], [facility] 08/24/2023 16:49:58 4 JZKNEE INJ completed Wilton Saavedra MD [address], [place], [address], [facility] 08/24/2023 16:50:11 Imaging Results None recorded. Procedure Notes None recorded. Medical Equipment None Reported. Allergies Allergen ID Allergen Name Allergen Category Reaction Reaction Severity Criticality Documentation Date Start Date Code Code System Note Provider Name and Address Organization Details Recorded Time 802392 Product containin g penicilli n (product) medicatio n Not available Not available Not available 08/23/2023 99338 8001 [facility] 4 08:52:05 070940 amoxicill in medicatio n Not available Not available Not available 02/27/2024 723 [facility] 4 08:51:58 Medications Name Sig Start Date Stop Date Status Note LastModified by Organization Details LastModified Time azithromyci n 250 mg tablet TAKE 2 TABLETS BY MOUTH TODAY, THEN TAKE 1 TABLET DAILY FOR 4 DAYS DIRECTED 11/22 completed Not Available Not Available Not Available amlodipine 5 mg tablet Take 1 tablet every day by oral route. active Not Available Not Available No t Available tamsulosin 0.4 mg capsule Take 1 capsule every day by oral route. active Not Available Not Available No t Available simvastatin 20 mg tablet Take 1 tablet every day by oral route. active Not Available Not Available No t Available levothyroxi ne 150 mcg tablet Take 1 tablet every day by oral route. active Not Available Not Available No t Available Valtrex 1 gram tablet Take 1 tablet every 12 hours by oral route. active Not Available Not Available No t Available epinephrine 0.3 mg/0.3 mL injection, auto-inject or active Not Available Not Available Not Available naproxen 500 mg tablet TAKE 1 TABLET (ORAL) 2 TIMES PER DAY (PAIN) FOR 14 DAYS 02/26 completed Not Available Not Available Not Available oxycodone 5 mg tablet Take 1 tablet every 4 hours by oral route. active Not Available Not Available No t Available finasteride active Not Available Not A vailable Not Available diclofenac 1 % topical gel TAKE 2 GRAMS (TOPICAL) 4 TIMES PER DAY FOR 10 DAYS 02/26 completed Not Available Not Available Not Available Gamunex-C 20 gram/200 mL (10 %) injection solution active Not Available Not Available Not Available Vitals Date Recorded Body height Body mass index (BMI) Body weight Provider Name and Address Organization Details Last Updated DateTime 08/23/2023 167.64 cm 34.9 kg/m2 97689.95 g ASTRID NAGY [facility] 08/23/2023 13:26:23 Date Recorded Body height Body mass index (BMI) Body weight Provider Name and Address Organization Details Last Updated DateTime 11/23/2023 167.64 cm 34.9 kg/m2 99290.95 g NIR Armstrong [facility] 11/23/2023 13:26:59 Date Recorded Body height Body mass index (BMI) Body weight Provider Name and Address Organization Details Last Updated DateTime 02/27/2024 167.64 cm 33.4 kg/m2 71601.62 g SUSAN DOSS [facility] 02/27/2024 08:51:38 Date Recorded Body height Body mass index (BMI) Body weight Provider Name and Address Organization Details Last Updated DateTime 05/24/2024 167.64 cm 33.4 kg/m2 55984.62 g rory leonard [facility] 05/24/2024 08:58:10 Social History Question Answer Notes LastModified by Organizat ion Details LastModified Time Tobacco Smoking Status Former Smoker Daniella Glez PA-C [address], [place], [address], [facility] 11/22/2023 12:44:36 When Did You Quit Smoking? 16+yearssinc elastcigaret cm [email or web address] Information not available 11/22/2023 Sex: Unknown Functional Status None recorded. Mental Status None recorded. Family History Nothing Reported. Medical History Condition Response Arthritis Y Thyroid Problems Y Hypertension Y Cholesterol Y Past Encounters Encounter ID Performer Location Encounter Start Date Encounter Closed Date Diagnosis/Indication Diagnosis SNOMED-CT Code Diagnosis ICD10 Code Diagnosis Note [id number] Wilton Saavedra MD [facility] [address] [place] [address] 08/23/2023 13:10:02 09/14/2023 10:37:45 Pain of knee region 1813413503 M25.569 Bilateral osteoarthritis of knees 5604157590 53098 M17.0 [id number] Daniella Glez PA-C [place] [address] [place] [address] 11/23/2023 13:07:10 12/13/2023 10:18:02 Bilateral osteoarthritis of knees 9597333638 47831 M17.0 [id number] KATHERINE [facility] [address] [place] [address] 02/27/2024 08:35:39 03/15/2024 15:10:43 Bilateral osteoarthritis of knees 5203838563 34805 M17.0 [id number] KATHERINE Leal [facility] [address] [place] [address] 05/24/2024 08:52:31 06/12/2024 08:13:03 Bilateral osteoarthritis of knees 7392965973 72630 M17.0 Health Concerns Section Related Observation LastModified by Organization Detai ls LastModified Time None Recorded Concern Status LastModified by Organization Details LastModified Time None Recorded Advance Directives Directive None Recorded Payers Encounter Date Sequence Insurance Name Policy Number Policy Hayden Covered Member ID Hayden Member ID Guarantor Name 08/23/2023 [facility] Vineet Vera [id number] Vineet Vera 11/23/2023 [facility] Vineet Jarrettmonte [id number] Vineet Vera 02/27/2024 [facility] Vineet Vera [id number] Vineet Vera 05/24/2024 [facility] Vineet Jarrettmonte [id number] Vineet Vera Notes Date Note Type Note Provider Name and Address Organization Details Recorded Time text/html I am seeing the patient today under the supervision of {{Ike ram* [employer]}} who was available but who did not see the patient. CLINICAL UPDATE:73 y.o. male patient presents today for recheck of his bilateral knee pain. Last cortisone injection 08/23/23 bilateral knees provided 3 months of relief. Left more bothersome than right at this point. HPI: Evaluated by Dr. Saavedra 08/23/23 for bilateral knee pain. Reported he was doing holiday decorating in June while standing on a bucket and slipped and fell. Denies mechanical catching/locking symptoms. He takes Oxycodone for chronic shoulder pain. He had an MRI ordered at the [place] which showed evidence of degenerative meniscus tears.Past family, social history and review of systems has been reviewed, updated and is located in the patient? s chart. X-RAYS: Previous 4v X-rays of the {{Right Left Bilateral*}} knees reviewed today at [facility] demonstrate varus deformity, moderate to severe medial compartment space narrowing bilaterally, moderate to severe patellofemoral space narrowing bilaterally. IMPRESSION: {{Right Left Bilateral*}} knee osteoarthritisPLAN: Findings reviewed. Discussed conservative versus surgical treatment options. Discussed definitive treatment would include total knee arthroplasty. He elected to proceed with repeat bilateral knee cortisone injection today. Briefly discussed viscosupplementation in the future if needed. Follow-up in 3 months for recheck. All of his concerns are addressed and he understands and agrees with the plan. Speech recognition language translator software was used to create portions of this document. An attempt at proofreading has been made to minimize errors. Please call for corrections. Daniella Glez PA-C [address], [place], [address], [facility] 11/23/2023 13:51:18 4 text/html I am seeing the patient today under the supervision of . {{Ike* Keri Abdullahi raj [employer]}} who was available but who did not see the patient. CLINICAL UPDATE:73 y.o. male patient presents today for recheck of his bilateral knee pain. Last cortisone injection 11/23/23 bilateral knees provided 3 months of relief. Left more bothersome than right at this point. HPI: Evaluated by Dr. Saavedra 08/23/23 for bilateral knee pain. Reported he was doing holiday decorating in June while standing on a bucket and slipped and fell. Denies mechanical catching/locking symptoms. He takes Oxycodone for chronic shoulder pain. He had an MRI ordered at the [facility] which showed evidence of degenerative meniscus tears.Past family, social history and review of systems has been reviewed, updated and is located in the patient? s chart.X-RAYS: Previous 4v X-rays of the {{Right Left Bilateral*}} knees reviewed today at [facility] demonstrate varus deformity, moderate to severe medial compartment space narrowing bilaterally, moderate to severe patellofemoral space narrowing bilaterally. IMPRESSION: {{Right Left Bilateral*}} knee osteoarthritisPLAN: Findings reviewed. Discussed conservative versus surgical treatment options. Discussed definitive treatment would include total knee arthroplasty. He elected to proceed with repeat bilateral knee cortisone injection today. Briefly discussed viscosupplementation in the future if needed. Follow-up in 3 months for recheck. All of his concerns are addressed and he understands and agrees with the plan. Speech recognition language translator software was used to create portions of this document. An attempt at proofreading has been made to minimize errors. Please call for corrections. Daniella Glez PA-C [address], [place], [address], [facility] 02/27/2024 09:15:08 5 text/html I am seeing the patient today under the supervision of . {{Ike Saavedra Kira* L raj [employer]}} who was available but who did not see the patient. CLINICAL UPDATE:74 y.o. male patient presents today for recheck of his bilateral knee pain. Last cortisone injection 02/27/24 bilateral knees provided 3 months of relief. Left more bothersome than right at this point. He describes more aching pain, sharp pains have dissipated. HPI: Evaluated by Dr. Saavedra 08/23/23 for bilateral knee pain. Reported he was doing holiday decorating in June while standing on a bucket and slipped and fell. Denies mechanical catching/locking symptoms. He takes Oxycodone for chronic shoulder pain. He had an MRI ordered at the [place] which showed evidence of degenerative meniscus tears.Past family, social history and review of systems has been reviewed, updated and is located in the patient? s chart.X-RAYS: Previous 4v X-rays of the {{Right Left Bilateral*}} knees reviewed today at [facility] demonstrate varus deformity, moderate to severe medial compartment space narrowing bilaterally, moderate to severe patellofemoral space narrowing bilaterally. IMPRESSION: {{Right Left Bilateral*}} knee osteoarthritis PLAN: Findings reviewed. Discussed conservative versus surgical treatment options. Discussed definitive treatment would include total knee arthroplasty. He elected to proceed with repeat bilateral knee cortisone injection today. Briefly discussed viscosupplementation in the future if needed. Follow-up in 3 months for recheck. All of his concerns are addressed and he understands and agrees with the plan. Speech recognition language translator software was used to create portions of this document. An attempt at proofreading has been made to minimize errors. Please call for corrections. Daniella Mcgowan PA-C [address], [place], [address], [facility] 05/24/2024 09:32:00
--- OUTSIDE RECORDS SUMMARY | 2024-07-08 11:30 | XMS_ITS | Encounter Summary ---
Author Name [facility] [place] [facility] [place] [facility] [place] [facility] [place] Address [address] [place] [address] Care Team Providers Care Manager Laboratory Name Role Phone LASHELL BADILLO Primary Care [...] to Policy Hayden [employer] DENTAL DENTAL INSURANCE [facility] Apr 10, 2021 [id number] NORMA GALLO PATIENT [facility] D Apr 10, 2021 [id number] [phone] NORMA GALLO PATIENT [employer]IG[employer] DENTAL DENTAL INSURANCE [facility] Apr 10, 2004 [id number] [place] MAEL PATIENT MEDICARE (WNR) MEDICARE (M) PART A Mar 10, 2017 PART A [id number] NORMA GALLO PATIENT MEDICARE (WNR) MEDICARE (M) PART B Mar 10, 2017 PART B [id number] NORMA GALLO PATIENT MEDICARE (WNR) MEDICARE (M) PART A Mar 10, 2017 PART A [id number] [id number] NORMA GALLO PATIENT MEDICARE (WNR) MEDICARE (M) PART B Mar 10, 2017 PART B [id number] NORMA GALLO PATIENT [facility] PREFERRED PROVIDER ORGANIZAT ION (PPO) NAVIG ATOR BY [facility] Apr 10, 2006 [id number] NORMA GALLO PATIENT [employer] (OPT/PROF ) [facility] * Mar 10, 2017 [id number] NORMA GALLO PATIENT Selected Encounter This section includes the information on record at [place] for the Encounter. Date/Time Encounter Type Encounter Description Reason Provider Source Apr 09, 2024 09:00 AM MTMS BY VANDANA RAHMAN 15 MIN PAIN CLINIC ICD-10-CM M25.511 Pain in right shoulder HUONG GUERRA [facility] Encounter Template Text not used by [place] Assessments - Encounter Diagnoses This section includes the primary and secondary diagnoses documented for the Encounter. Date/Time Primary/Secondary Diagnosis Diagnosis Name Provider Source Apr 09, 2024 09:23 AM PRIMARY Pain in right shoulder MOHIT GUERRAY [facility] Apr 09, 2024 09:23 AM SECONDARY Cervical disc disorder with myelopathy, unsp cervical region [facility]IEHUONG [facility] Plan of Treatment: Future Appointments (+ 6 months) and Future Tests (+/- 45 days) The Plan of Treatment section includes future care activities for the patient from all [place] treatmentfacilities. This section includes future appointments and future orders which are active, pending or scheduled. Future Appointments This section includes appointments that were scheduled to occur 6 months from the date of the Encounter, up to a maximum of 20 appointments. The data comes from all [place] treatment facilities. Appointment Date/Time Appointment Type Appointme nt Facility Name May 02, 2024 10:00 AM AMBULATORY - MEDICINE [facility] May 21, 2024 09:00 AM [facility] [place] [facility] Jun 17, 2024 11:30 AM AMBULATORY - MEDICINE [place] [facility] [place] [facility] Jul 09, 2024 09:00 AM AMBULATORY - MEDICINE [place] [facility] [place] [facility] Social History: Smoking Status (Most current) and Tobacco Use (All prior to encounter date) This section includes the most current, and the historical, smoking and tobacco- related health factors from the [place] facility where the Encounter took place. Current Smoking Status This section includes the most current smoking, or tobacco-related health factor, from the [place] facility where the Encounter took place. Date/Time Current Smoking Status Comment Facil ity Oct 09, 2023 08:30 AM [facility] [place] [facility] Tobacco Use History This section includes a history of the smoking, or tobacco-related health factors, that were collected on or before the date of the Encounter. The data comes from the [place] facility where the Encounter took place. Date/Time Smoking Status/Tobacco Use Comment F acility Oct 09, 2023 08:30 AM VA-TOBACCO QUIT 15 YRS OR MORE [facility] [place] [facility] Oct 27, 2022 12:11 PM VA-TOBACCO FORMER USER [facility] [place] [facility] Oct 27, 2022 12:11 PM VA-TOBACCO QUIT 15 YRS OR MORE [facility] [place] [facility] Oct 29, 2021 09:40 AM VA-TOBACCO FORMER USER [facility] [place] [facility] Oct 29, 2021 09:40 AM VA-TOBACCO QUIT 15 YRS OR MORE [facility] [place] [facility] Sep 14, 2020 11:21 AM VA-TOBACCO FORMER USER [facility] [place] [facility] Sep 14, 2020 11:21 AM VA-TOBACCO QUIT 5 TO < 15 YRS [facility] [place] [facility] Encounter Notes: All associated encounter notes This section contains the clinical notes associated to the Encounter. Date/Time Encounter Note(s) Provider Source Apr 30, 2024 08:12 AM ACCOUNTING OF DISCLOSURES NOTE: LOCAL TITLE: STATE PRESCRIPTION DRUG MONITORING PROGRAM STANDARD TITLE: ACCOUNTING OF DISCLOSURES NOTE DATE OF NOTE: APR 30, 2024@08:12:52 ENTRY DATE: APR 30, 2024@08:12:52 AUTHOR: HUONG GUERRA EXP COSIGNER: URGENCY: STATUS: COMPLETED This PDMP query was submitted by Huong Guerra. The clinical justification for this PDMP query is to review controlled substances prescribed outside of the [facility], and any additional information that may become available, as an important component of standard clinical care, and in accordance with [facility] policy. Patient information was shared with the [facility] [employer] [place]. No prescription(s) for controlled substances outside the [facility] were found in the last 90 days. /evi GUERRA CLINICAL PHARMACIST PRACTITIONER, PAIN Signed: 04/30/2024 08:12 HUONG GUERRA [facility] Apr 09, 2024 08:30 AM ACCOUNTING OF DISCLOSURES NOTE: LOCAL TITLE: STATE PRESCRIPTION DRUG MONITORING PROGRAM STANDARD TITLE: ACCOUNTING OF DISCLOSURES NOTE DATE OF NOTE: APR 09, 2024@08:30:38 ENTRY DATE: APR 09, 2024@08:30:38 AUTHOR: HUONG GUERRA EXP COSIGNER: URGENCY: STATUS: COMPLETED This PDMP query was submitted by Huong Guerra. The clinical justification for this PDMP query is to review controlled substances prescribed outside of the [facility], and any additional information that may become available, as an important component of standard clinical care, and in accordance with [facility] policy. Patient information was shared with the [facility] [employer] [place]. No prescription(s) for controlled substances outside the [facility] were found in the last 90 days. /evi GUERRA CLINICAL PHARMACIST PRACTITIONER, PAIN Signed: 04/09/2024 09:42 [facility] Apr 09, 2024 08:23 AM PAIN MEDICINE OUTPATIENT NOTE: LOCAL TITLE: PAIN CLINIC NOTE STANDARD TITLE: PAIN MEDICINE OUTPATIENT NOTE DATE OF NOTE: APR 09, 2024@08:23 ENTRY DATE: APR 09, 2024@08:24 AUTHOR: HUONG GUERRA EXP COSIGNER: URGENCY: STATUS: COMPLETED [place] Video Connect (VVC) Standard Documentation V[facility] Clinician Resources Only: E911 (Emergency Call Relay Center): [phone] [facility] Line - 988 then press #1. [facility] Suicide Coordinator [phone], Ext. [phone]; Back-up Ext. [phone] [place] , Nolan KAPLAN [phone] Introduction: Visit is being conducted by [place] Video Connect. [place] identified with 2 identifiers: [X] Full Name [X] Date of [ ] VA ID Card Emergency Plan: confirmed and/or provided the following information in case of emergency or technology failure. PATIENT PHONE - PHONE NUMBER [CELLULAR] - NONE FOUND Is patient phone number correct, if not, enter below: [place]'s phone number: Confirmed NORMA GALLO [address], [place], [address] 's present location and address for appointment: Confirmed [place]'s emergency contact name and phone number: Kaye Gallo [phone] reported that location is private and safe: Yes Informed Consent: [place] informed of the risks and benefits of Telehealth video care. has the right to refuse video services. If refuses video visit, a [id number] visit will be scheduled. verbalized consent for [...] follow-up appointment. Alonso was last seen in clinic on 03/05/24; adjusted oxycodone to 10mg BID and 5mg mid-day. Please see previous pain clinic notes for additional details. SUBJECTIVE/OBJECTIVE: NORMA Rae presents to clinic today seated at home in no apparent distress. He reports things have been going really good since last encounter in February. He endorses benefit from adjustment in oxycodone dose made at that encounter. reports his right shoulder pain has not been bad recently. He feels like he has been off the couch more , recently rewired internet cables throughout his house. He and his had hosted their children and grandchildren for the holidays. Currently babysitting their animals including 2 turkeys!. EVALUATION OF PAIN RELATED MEDICATIONS: -- A focused pain related medication reconciliation was performed. 1. Lorazepam 0.5mg daily PRN (last filled: 09/13/23 for 30 tabs) - Uses very sparingly 2. Oxycodone 10mg (5mg x 2 tabs) QAM, 5mg QMidday, and 10mg QHS PRN (last filled: 03/14/24 for 28-days) - Alonso endorses benefit from use; see above - Does not report any increase in sedation, fatigue, or constipation since making dose adjustment EVALUATION OF NON-PHARM MOADLITIES: ------- STRETCHING/EXERCISE: Walking daily PHYSICAL THERAPY: Consult for chronic right shoulder instability on 02/26/24; Alonso reports he is doing HEP daily OTHER: VR trial; has one more week left. Alonso does not think it helps the pain much but finds it rather relaxing to use. He and his are thinking of purchasing a headset to continue use at home EVALUATION OF SOCIAL HISTORY: LEVEL OF ACTIVITY: [...] for interpretation of results PDMP: Last completed 03/14/24 with issuance of oxycodone rx C-SSRS: Completed 11/21/23; screened negative OPIOID + BZD: [place] on stable dose of both opioid and bzd for some years. 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 He is wondering if he should have answered yes to previous toxic exposure screening questions and if his acquired hypothyroidism and neoplasm of thymus could be related to his time in the service. PMOP PAIN MEASURES: Self-Rated Health (SRH) Date [...] About Pain (UW-CAP-2): ------- Date Score 02/06/24 6/53.4 (T-score) AMOXICILLIN Active and Recently Outpatient Medications (excluding Supplies): Active Outpatient Medications Status 1) AMLODIPINE BESYLATE 5MG TAB TAKE ONE TABLET BY MOUTH ONCE ACTIVE DAILY FOR BLOOD PRESSURE/HEART, DO NOT TAKE [...] BY MOUTH ONCE DAILY ACTIVE Indication: FOR ENLARGED PROSTATE 5) LEVOTHYROXINE NA (SYNTHROID) 150MCG TAB TAKE ONE TABLET BY ACTIVE MOUTH EVERY MORNING 30 MINUTES BEFORE BREAKFAST TAKE ON AN EMPTY STOMACH WITH A FULL GLASS OF WATER Indication: FOR THYROID 6) LISINOPRIL 40MG TAB TAKE ONE TABLET BY MOUTH ONCE DAILY TO ACTIVE CONTROL BLOOD PRESSURE Indication: FOR HIGH BLOOD PRESSURE 7) OXYCODONE HCL 5MG TAB NOT SA TAKE TWO TABLETS BY MOUTH ACTIVE EVERY MORNING AND TAKE ONE TABLET EVERY AFTERNOON AND TAKE TWO TABLETS EVERY EVENING NEXT FILL 04/15 Indication: FOR PAIN 8) SIMVASTATIN 40MG TAB TAKE ONE-HALF TABLET BY MOUTH ONCE ACTIVE DAILY FOR CHOLESTEROL Indication: FOR HIGH CHOLESTEROL 9) TAMSULOSIN HCL 0.4MG CAP TAKE ONE CAPSULE BY MOUTH ONCE ACTIVE DAILY Indication: FOR ENLARGED PROSTATE 10) VALACYCLOVIR HCL 1GM TAB TAKE ONE TABLET BY MOUTH ONCE DAILY ACTIVE Indication: FOR INFECTION CAUSED BY A VIRUS Active Non-VA Medications Status 1) Non-VA MULTIVITAMIN/MINERALS CAP/TAB 1 TABLET BY MOUTH DAILY ACTIVE 11 Total Medications Active problems - Computerized Problem List is the source for the followin. Obesity (SCT [id number]) 2. Acquired hypothyroidism 3. 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 Elevated PSA 6. Renal cyst 7. Essential hypertension 8. Diverticulosis 9. Allergic rhinitis 10. Shoulder pain 11. Neck pain 12. Anxiety disorder (SNOMED CT [id number]) 13. Keratoconjunctivitis sicca, not specified as Sjogren's [...] thymoma, and anxiety. 's pain presentation appears improved from previous encounter. He endorses benefit from slight dose adjustment to oxycodone. He is able to be more active and engaged which is meaningful to him. He reports to be tolerating regimen. Will continue with current therapy at this time. Encouraged [place]'s continued positive practices including VR and HEP. In regard, to potential toxic exposures and updating service connections recommended reach out to PACT team to discuss further as additional referral may be required to complete. [place] has upcoming appointment on 05/02 at which he plans to discuss with PCP. A shared decision-making approach was used in the development of this plan, involving the and clinician present. The was provided the opportunity express questions or concerns, and the plan was adjusted as needed to address these concerns. verbalized understanding of the plan, including possible known risks and benefits, and had no additional questions. PLAN: 1. Continue Oxycodone 10mg QAM, 5mg Qmidday and 10mg QEvening - Renewed today for mail - PDMP queried; results returned as expected 2. [place] will continue to participate in Home VR trial 3. will continue with HEP as instructed by PT 4. will discuss Toxic Exposure Screening/Updating Service Connection with PACT Team at 05/02/24 appt F/U via [facility] in 6 weeks; Pt instructed to contact clinic with any questions or concerns prior to next encounter. Risk mitigation tools: 1. Long-Term Consent for Opioid Therapy completed 2014 for oxycodone 2. Education on naloxone kit use and s/sx of OIRD completed 07/2023 3. Annual UDS completed 10/09/23 4. PDMP queried and State Prescription Drug Monitoring note completed today Encounter Time: 30 minutes /genna/ HUONG GUERRA CLINICAL PHARMACIST PRACTITIONER, PAIN Signed: 04/09/2024 09:41 HUONG GUERRA [place] [facility]
--- OUTSIDE RECORDS SUMMARY | 2024-07-08 11:30 | XMS_ITS | Encounter Summary ---
Author Name [facility] [place] Organization [facility] [place] [facility] [place] Address [address] [place] [id number] Care Team Providers Care Claim Rep Name Role Phone LASHELL BADILLO Primary Care [...] to Policy Hayden [employer]IG[employer] DENTAL DENTAL INSURANCE [facility] Apr 10, 2021 [id number] [phone] NORMA GALLO PATIENT CIGNA DENTAL DENTAL INSURANCE [facility] D Apr 10, 2021 [id number] NORMA GALLO PATIENT CIGNA DENTAL DENTAL INSURANCE [facility]ENT[facility] L Apr 10, 2004 [id number] NORMA GALLO PATIENT MEDICARE ([facility]) MEDICARE (M) PART A Mar 10, 2017 PART A [id number] NORMA GALLO PATIENT MEDICARE ([facility]) MEDICARE (M) PART B Mar 10, 2017 PART B [id number] NORMA GALLO PATIENT MEDICARE (WNR) MEDICARE (M) PART A Mar 10, 2017 PART A [id number] NORMA GALLO PATIENT MEDICARE (WNR) MEDICARE (M) PART B Mar 10, 2017 PART B [id number] NORMA GALLO PATIENT [facility] PREFERRED PROVIDER ORGANIZAT ION (PPO) NAVIG ATOR BY [facility] Apr 10, 2006 [id number] NORMA GALLO PATIENT [employer] (OPT/PROF ) [facility] * Mar 10, 2017 [id number] NORMA GALLO PATIENT Selected Encounter This section includes the information on record at [facility] for the Encounter. 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 Date/Time Primary/Secondary Diagnosis Diagnosis Name Provider Source May 19, 2024 07:23 AM PRIMARY Neoplasm of uncertain behavior of thymus LASHELL LIMON [facility] May 19, 2024 07:23 AM SECONDARY Elevated prostate specific antigen [PSA] LASHELL LIMON [facility] May 19, 2024 07:23 AM SECONDARY Essential (primary) hypertension LASHELL LIMON [facility] May 19, 2024 07:23 AM SECONDARY Hypothyroidism, unspecified LASHELL LIMON [facility] May 19, 2024 07:23 AM SECONDARY Mixed hyperlipidemia LASHELL LIMON [facility] May 19, 2024 07:23 AM SECONDARY Obesity, unspecified LASHELL LIMON [facility] May 19, 2024 07:23 AM SECONDARY Pain in right shoulder LASHELL LIMON [facility] Plan of Treatment: Future Appointments (+ 6 months) and Future Tests (+/- 45 days) The Plan of Treatment section includes future care activities for the patient from [facility] This section includes future appointments and future orders which are active, pending or scheduled. Future Appointments This section includes appointments that were scheduled to occur 6 months from the date of the Encounter, up to a maximum of 20 appointments. The data comes from all [facility] facilities. Appointment Date/Time Appointment Type Appointme nt Facility Name May 21, 2024 09:00 AM AMBULATORY - MEDICINE [facility] Jun 17, 2024 11:30 AM AMBULATORY MEDICINE [facility] [place] [facility] Jul 09, 2024 09:00 AM [facility] Vital Signs: All taken on the encounter date This section contains inpatient and outpatient Vital Signs collected on the date of the Encounter. Date/Time Temperature Pulse Blood Pressure Respiratory Rate SP02 Pain Height Weight Body Mass Index Source May 02, 2024 10:50 AM 98.7 88 156/78 95 224 34 [facility] IE Social History: Smoking Status (Most current) and Tobacco Use (All prior to encounter date) This section includes the most current, and the historical, smoking and tobacco- related health factors from the [place] facility where the Encounter took place. Current Smoking Status This section includes the most current smoking, or tobacco-related health factor, from the [facility] facility where the Encounter took place. Date/Time Current Smoking Status Comment Facil ity Oct 09, 2023 08:30 AM VA-TOBACCO FORMER USER [facility] Tobacco Use History This section includes a history of the smoking, or tobacco-related health factors, that were collected on or before the date of the Encounter. The data comes from the [facility] facility where the Encounter took place. Date/Time Smoking Status/Tobacco Use Comment F acility Oct 09, 2023 08:30 AM [facility]-TOBACCO QUIT 15 YRS OR MORE [facility] Jan 01, 2018 09:33 AM QUIT TOBACCO USE > 7 YEARS AGO 20 plus years [facility] Oct 31, 2016 09:39 AM QUIT TOBACCO USE > 7 YEARS AGO quit 20 years ago, cigarettes [facility] Jun 12, 2015 09:31 AM QUIT TOBACCO USE > 7 YEARS AGO quit 2002 [facility] Jan 03, 2008 08:52 AM QUIT TOBACCO USE > 7 YEARS AGO [facility] Feb 26, 2007 08:53 AM QUIT TOBACCO USE 1 -7 YEARS AGO [facility] August 29, 2006 08:30 AM QUIT TOBACCO USE 1 -7 YEARS AGO quit 3 yrs ago [facility] August 16, 2005 02:09 PM QUIT TOBACCO USE 1 -7 YEARS AGO [facility] May 17, 2005 10:42 AM QUIT TOBACCO USE I N PAST YEAR quit 09/12 [facility] May 03, 2005 09:48 AM QUIT TOBACCO USE I N PAST YEAR Vet quit tobacco September 2004. [facility] Feb 11, 2005 10:09 AM HISTORY OF SMOKING Quit September 2004 [facility] Feb 11, 2005 10:09 AM QUIT TOBACCO USE I N PAST YEAR September 2004 [facility] Encounter Notes: All associated encounter notes This section contains the clinical notes associated to the Encounter. Date/Time Encounter Note(s) Provider Source May 02, 2024 10:00 AM PHYSICIAN NOTE: LOCAL TITLE: MD NOTE STANDARD TITLE: PHYSICIAN NOTE DATE OF NOTE: MAY 02, 2024@10:00 ENTRY DATE: MAY 01, 2024@15:40:48 AUTHOR: Taryn BADILLO COSIGNER: URGENCY: STATUS: COMPLETED NOTE Has ADDENDA 74 y/o M with PMH of obesity, HTN, HL, thymoma s/p chemotherapy and thymectomy 2021, Acquired hypothyroidism, BPH, elevated PSA, arm pain last/Initial visit 10/2023 PCP is [facility] Other providers: --immunology Dr Ko q6 m- [facility] -->IVIG --> q4w --eye [facility] --ortho --thoracic surgery [facility] q12m with CT chest (last 09/2023) --urology [facility]-Dr. Raghav Atkinson --> [id number] --Cardiology [facility] annually Dr. Leighton Mejia Patient reports doing well #HTN/HL BP at home at goal <130/80, mostly in 120s/70s compliant with medications denies CP/SOB/KATZ/palpitations/dizzi ness /claudication denies h/o IN, CVA #Thymoma - now on 12 months surveillance for 10 years last imaging STORM #Osteoarthritis knees and torn meniscus limiting his ability to walk seen by [facility] in 08/2023 Dx with severe OA Walking daily 2 miles, listening audio books follow-up with orthopedic surgery - getting injection q3 months with good effect #R shoulder pain - due to labral tear 50 years ago when pt was 20 y/o in [facility] - - shoulder sliding out, c/b back spasm pt is R handed, but learned to mostly use his left arm can not carry anything in that arm pain wakes him up often failed PT,OT< chiro, accupuncture, streoid injections on oxycodone 25mg /day- [facility], could not tolerate BUPRENORPHINE PATCH - dc/d due to ADR Patient states that pain is 4 out of 10 with oxycodone 10 out of 10 with activity PAST MEDICAL HISTORY: --obesity --HTN --HL --Acquired hypothyroidism Status post thymectomy 2021 --Neoplasm of uncertain behavior of thymus --Biopsy-proven left lower lobe hamartoma --Allergic rhinitis --herpes --Raised PSA --BPH --Renal cyst Benign appearing seen on 12/2019 ct abd/pelvis Renal ultrasound 02/2021 3 cm complex right renal cyst --Diverticulosis --Closed dislocation of shoulder --Shoulder pain Mri right shoulder 11/2019 --Neck pain --Carpal tunnel bilateral s/p surgery --Displacement of cervical intervertebral disc without myelopathy From injury while in [facility] --Keratoconjunctivitis sicca, not specified as Sjogren's --Tobacco Use Disorder, Remission --Anxiety state --Dysthymia --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, evalauted by audiology PAST SURGICAL HISTORY: --Status post thymectomy 12/2021 --Perirectal abscess 2018 --Carpal tunnel bilateral 11/2022 --Hernia repair ALLERGIES: AMOXICILLIN MEDICATIONS: reconciled today SIMVASTATIN 20MG LISINOPRIL 40MG AMLODIPINE 5MG LEVOTHYROXINE NA (SYNTHROID) 150MCG TAMSULOSIN HCL 0.4MG FINASTERIDE 5MG CLOTRIMAZOLE 1% TOP CREAM Non-VA MULTIVITAMIN/MINERALS --LORAZEPAM 0.5MG TAB DAILY NEEDED FOR ANXIETY/NERVES not taken in months VALACYCLOVIR 1GM DAILY episodic use OXYCODONE HCL 5MG TAB NOT SA TAKE TWO TABLETS PENDING BY MOUTH TWICE DAILY --NALOXONE HCL 4MG/SPRAY SOLN NASAL -non VA IVIG every 4 weeks FAMILY HISTORY: --DM:no --Cancer: Brother renal carcinoma at 70, younger brother colon cancer at 60 daughter thyrpid cancer --IN:no --CVA:no SOCIAL HISTORY: Social Hx: SERVICE CONNECTED % - 30 --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 dtr is a physical therapist son is occupational therapist --Cohabitation: , lives with his of 52 y --Children: 3 5 grandchildrens --Diet: well balanced --Exercise: walking 2 miles daily --Caffeine: 2c/day --EtOH:occasional glass of wine --Tob:Quit in 2003, h/o 30 PPDY --MJ: no --Illicits:no --Sexual activity: monogamous, female --Eye: UTD --Dental:UTD --Hospitalizations: none recently ROS: Constitutional: no fever/no chills, no ns Eyes: no decreased vision/blurry vision Ears/Nose/Throat: no hearing change Respiratory: no cough/wheezing/SOB Cardiovascular: no CP /palpitations Gastrointestinal: no abdominal pain/bloody/black stools :no dysuria/hematuria/trouble voiding MSK: R shoudler pain and Knee pain chronic stable Neuro: no dizziness/H/A Skin: no pruritus/rash PHYSICAL EXAM: Vital Signs: Blood Pressure: 156/78 (05/02/2024 10:50)--> 140/80 142/80 (10/09/2023 08:49)-->135/80 150/79 (10/27/2022 12:34) Pulse: 88 (05/02/2024 10:50) Respiration: 20 (07/10/2023 15:01) Temperature: 98.7 F [37.1 C] (05/02/2024 10:50) Patient Weight: BMI 32 224 lb [101.60 kg] (05/02/2024 10:50) 212.8 lb [96.52 kg] (10/09/2023 08:49) 216 lb [97.98 kg] (10/27/2022 12:34) Gen: pleasant, engaged, NAD Chest/CV: RRR Lungs: CTA B/L Abdomen: BS+, Soft, MT, ND Extremities: wwp, no edema LABORATORY: 03/2024 non va labs reviewed WBC: 6.7 HGB: 12.9 HCT: 38.2 MCV: 96 PLT: 247 UREA NITROGEN: 21 CREATININE-EGFR: 1.14 eGFR CKD-EPI 2020:68 SODIUM: 141 POTASSIUM: 4.8 CHLORIDE: 104 CO2: 23 calcium 9.1 PROTEIN,TOTAL: 6.7 ALBUMIN: 4.3 ALKALINE PHOSPHATASE: 61 BILIRUBIN,TOT.: <0.2 SGOT: 29 SGPT: 23 ESR 14 --10/2023--- HGB A1C (WR): 5.3 TSH (Access): 2.42 FREE T-4 (WR): 1.15 CHOLESTEROL: 214 H TRIGLYCERIDE: 192 H LDL CHOL: 118 CHOL/HDL RATIO: 3.7 HDL: 58 VITAMIN D TOTAL: 32 MICROALB/CR RATIO: 52.9 H MICROALBUMIN URINE: 5.3 CREATININE URINE: 100.16 ASSESSMENT/PLAN: 74 y/o M with PMH of obesity, HTN, HL, thymoma, Acquired hypothyroidism s/p thymectomy 2021, BPH, elevated PSA, arm pain #thymoma: completed excision 12/2021. now on surveillance [id number] cat scan Follows by thoracic surgery at [facility] #hypogammoglobulinemia: Receiving IVIg monthly -f/w immunology q6m #Hypothyroidism clinically and biochemically euthyroid #HTN: well controlled on ACEI and CCB, borderline hypertensive in the clinic today at home blood pressure well-controlled -Follows with [facility]ology annually #anxiety: occasionally takes lorazepam with improvement -lorazepam 0.5mg daily prn (2 x/week) #elevated psa-normalized on finasteride: urologists suspects due to BPH. PSA 2.38 (10/2023) --> PSA 1.77 (12/2023) with urology #Renal cyst -f/u w/urology Dr. Atkinson annually #R shoulder pain: residual of chronic dislocation failed celebrex, injections, acupuncture shoulder x-ray 2016 possible mild calcific tendinitis. ortho says the right shoulder damage is advanced involving rotator cuff etc. suspect he'll need a shoulder replacement by his description -oxycodone 10mg TID prn -[facility] Healthcare maintenance: --Lipids: LDL 118 (10/2023) --Diabetes: A1c 5.3 (10/2023) --Colon CA (45-75): due 2026 Colonoscopy 2016 no polyps --Lung CA: n/a --PSA PSA 2.38 (10/2023) PSA 1.77 (12/2023) with urology --AAA (smoker/65): 2017 no AAA --Influenza (yrly): 2023 --RSV: 2022 --COVID: 2020 x3 --PCV13: 2017 --PCV23: 2017 --HZV (>60yrs, x1): 2014 --RZV (>50yrs, x2): --TDAP/TD: --Hep B screen: 2008 no immunity --Hep C screen: 2008 negative --HIV screen: --DEXA: --Advanced Directives: Address at next visit: Return to clinic to see me in _6__ months, sooner PRN. Virtual ( ), F2F ( x ) ( )non fasting labs ordered prior to f/u ( )fasting labs ordered prior to f/u ( )no labs needed ( )request labs from outside provider (x )request records from outside providers prior to next visit - thoracic surgery, urology Medication Reconciliation: Outpatient: Has the patient been taking medications as documented in the EMLR? YES: The patient has been taking medications as documented in the EMLR. Essential Medication List for Review used to complete this medication reconciliation. INCLUDED IN THIS LIST: Alphabetical list of active outpatient prescriptions dispensed from this [facility] (local) and dispensed from another [facility] or [facility] facility (remote) as well as inpatient orders [...] whether with a VA or non-VA provider. HTN Assess for Elevated BP>=140/90: /genna/ LASHELL BADILLO MD PHYSICIAN Signed: 05/04/2024 12:35 Receipt Acknowledged By: 05/06/2024 11:13 /genna/ ALLEY NATHAN 05/04/2024 ADDENDUM STATUS: COMPLETED HTN Assess for Elevated BP>=140/90: Repeat blood pressure: 140/80 Patient reported blood pressure Systolic BP 125 Diastolic BP 80 The patient's blood pressure is usually adequately controlled. No medication changes are indicated at this time. /genna/ LASHELL BADILLO MD PHYSICIAN Signed: 05/04/2024 12:36 05/06/2024 ADDENDUM STATUS: COMPLETED Records requested from [facility] Dr. Demetrio Salcedo /genna/ ALLEY NATHAN Signed: 05/06/2024 11:13 05/09/2024 ADDENDUM STATUS: COMPLETED [facility] note dated 01/12/2024 received and sent to [facility]. /genna/ Crys Rushing RN Registered Nurse (RN) Signed: 05/09/2024 11:07 05/30/2024 ADDENDUM STATUS: COMPLETED Ortho [facility] dated 05/24/24 [facility]evi Rushing RN Registered Nurse (RN) Signed: 05/30/2024 19:54 06/04/2024 ADDENDUM STATUS: COMPLETED Thoracic Surgery office note dated 10/19/2023 received, sent to [facility] /gnena/ Crys Rushing RN Registered Nurse (RN) Signed: 06/04/2024 08:45 GLORIA BADILLO Apr 25, 2024 11:12 AM ADMINISTRATIVE NOT E: LOCAL TITLE: ADMINISTRATIVE NOTE STANDARD TITLE: ADMINISTRATIVE NOTE DATE OF NOTE: APR 25, 2024@11:12 ENTRY DATE: APR 25, 2024@11:12:48 AUTHOR: ETTA,TONIMARIE EXP COSIGNER: URGENCY: STATUS: COMPLETED [facility] [address] [place] [phone] * NORMA GALLO [address] [place] [id number] Date: APR 25, 2024 re: This is a reminder of your upcoming PCP appt with LASHELL BADILLO Appointment Date: Apr@10:00 Appointment Type: In-person visit Fasting blood work NON fasting blood work CONFIRMED APPT WITH THE Sincerely, Office Staff for: LASHELL BADILLO Primary Care Provider [facility] [address] [address] T [phone] F [phone] Upcoming Appointments: 05/02/2024 10:00 CWM/SO/PACT 5 05/21/2024 09:00 [facility] PHARM PAIN 2 06/17/2024 11:30 CWM/NO/VVC/IPT/PAIN PM&R APPOINTMENT ABBREVIATION CONN (SPOPC OR SO = [address]) (GOPC OR GO = [address]) ([facility] or NO = [facility]) (VVC - Video Call) (Tel-X Telephone Visit) ( - Telehealth) /es/ ALLEY NATHAN Signed: 04/25/2024 11:13 ALLEY QUILES [facility]
[2024-07-08 14:30] LABS: Prostate Specific Antigen 1.77 ng/mL (<0.05-4.0)
== END 2024-07-08 10:18 | disposition home or self-care (01) ==
LOC: HO.HMGCLDS 10:17
PROVIDERS: PCP Internal Medicine; Visit Provider Urology
DX: R97.20 Elevated prostate specific antigen [PSA] (principal); Z12.5 Encounter for screening for malignant neoplasm of prostate
CPT/HCPCS: 36415; 84153

== ENCOUNTER 2024-07-16 09:36 | Outpatient (AMB) | payer MEDICARE, OTHER, SELFPAY ==
--- NOTE | 2024-07-16 09:32 | MHC.OFFVIS ---
Intake Visit Reasons: 6 month follow up/ PSA Intake Note: Patient is present for 6M/PSA Urology Medication:TAMSULOSIN,FINASTRIDE Antibiotic Allergy:AMOXICILLIN Blood Thinner:NONE Medicaid Eligibility Specialist Required: No Allergies amoxicillin [AMOXICILLIN] Allergy (Mild, Verified 07/16/24 09:33) nickie FLOYD HPI Comments Details: Vineet is a very pleasant male. He is a patient of Dr Dunlap. He is seen for the following urologic conditions. - renal cyst - lower urinary tract symptoms PSA 1.8 6 month follow-up Happy with urinary performance - minimal nocturia, minimal urge, effective stream Try coming off tamsulosin Would plan on reducing finasteride in 6 months [facility] 12 [facility]-up Urinary Symptoms Review - Stable post-void residual volume - Current stable PSA level at 1.8 ng/mL - No issues with bladder emptying - Management includes tamsulosin and finasteride, with noted reduction in finasteride frequency Lower Urinary Tract Symptoms:? Helpful with alpha-riana and finasteride ? Current visit is for?further evaluation of, lower urinary tract symptoms, predominate obstructive symptoms.? Current treatment includes?fluid restriction, finasteride, tamsulosin ? Prostate Symptom Score?2/20 , Moderate (9-), Bother 3.? Symptoms include?2/20 , incomplete emptying, weak stream, nocturia (>2), and are progressing.? PSA?03/28 4.04, 03/01 5.8, 07/31 3.1, 12/31 3.0, 07/01 2.9, 01/31 1.8 - CATIA 2+ soft ? Testing at next visit will include?bladder scan in PSA Renal lesion:? Brother renal ca age 70 ?Review of [address] scan ?Cyst stable in kidney ?Enlarged prostate. ? They present for ?evaluation of renal mass, right side, complex cyst.? The renal mass was diagnosed?incidentally, during evaluation for, GI symptoms ? Imaging included?03/28 , a CT (computed tomography) scan of the abdomen/pelvis, showing class II cyst(s), showing class II cyst(s), 3.1-5.9 in size right side ?11/27 , a CT (computed tomography) scan of the abdomen/pelvis cyst remains stable - 02/28 renal ultrasound 3 cm complex right renal cyst, 3 cm adjacent cyst. 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 of right shoulder Complete rotator cuff tear or rupture of right shoulder, not specified as traumatic Surgical History History of tonsillectomy History of hernia repair Family History Father Medical history non-contributory Mother Medical history non-contributory Social History Housing: House Alcohol intake: never Patient Tobacco Use Status: Former Tobacco user e-Cigarette/Vaping Use: Never Used service: No Current occupational status: retired Review of Systems Const Denies chills and Denies fever(s) Card Reports no additional complaints and Denies syncope Resp Denies cough GI Denies abdominal pain and Denies heartburn Reports as per HPI and Denies change in libido Neuro Denies syncope Psych Denies change in libido Endo Denies change in libido Physical Exam Const General: cooperative, healthy appearing, comfortable and no acute distress Orientation/consciousness: patient oriented x3 HEENT Face and sinus: Yes normal facial exam Mouth: moist mucous membranes Neck Neck: Yes normal visual inspection, Yes full ROM and Yes trachea midline Chest Chest palpation & inspection: normal inspection of the chest Resp Effort & Inspection: normal respiratory effort, able to speak in complete sentences and no respiratory distress GI Inspection: Yes normal to inspection Back/Spine/Pelvis Cervical Spine: normal cervical lordosis Thoracic/Lumbar Spine: thoracic and lumbar spine normal to inspection Skin General skin exam: no rashes or lesions noted Neuro General: patient oriented x3, gait normal, tone normal and moves all extremities Extrem General: Yes normal to inspection and Yes capillary refill normal Results AMB Urinalysis, Automated UA Leukoctes 0 Marta/uL Last Edit by ALFA Mckeon on 07/16/24 09:47 UA Nitrite Negative Last Edit by ALFA Mckeon on 07/16/24 09:47 UA Urobilinogen 0.2 mg/dL Last Edit by ALFA Mckeon on 07/16/24 09:47 UA Protein 15 mg/dL Last Edit by Scarlet Tran CCM on 07/16/24 09:47 UA pH 5.5 Last Edit by Scarlet Tran CCM on 07/16/24 09:47 UA Blood 0 Nicola/uL Last Edit by Scarlet Tran CCM on 07/16/24 09:47 UA Specific Al[place]ir 1.020 Last Edit by ALFA Mckeon on 07/16/24 09:47 UA Ketone Negative Last Edit by Scarlet Tran CCM on 07/16/24 09:47 UA Bilirubin 0 mg/dL Last Edit by ALFA Mckeon on 07/16/24 09:47 UA Glucose 0 mg/dL Last Edit [facility] 07/16/24 09:47 Results Reviewed Results Reviewed: Laboratory Last Values Urine pH (Auto) 5.5 07/16/24 09:46 Specific Altair (Auto) 1.020 07/16/24 09:46 Urine Protein (Auto) 15 mg/dL 07/16/24 09:46 Glucose (UA)(Auto) 0 mg/dL 07/16/24 09:46 Urine Ketones (Auto) Negative 07/16/24 09:46 Urine Blood (Auto) 0 Nicola/uL 07/16/24 09:46 Urine Nitrite (Auto) Negative 07/16/24 09:46 Urine Bilirubin (Auto) 0 mg/dL 07/16/24 09:46 Urine Urobilinogen (Auto) 0.2 mg/dL 07/16/24 09:46 Leukocyte Esterase (Auto) 0 Marta/uL 07/16/24 09:46 Assessment & Plan Assessment & Plan (1) Incomplete emptying of bladder: Code(s): R33.9 - Retention of urine, unspecified Category: Medical (2) Benign prostatic hyperplasia with lower urinary tract symptoms: Code(s): N40.1 - Benign prostatic hyperplasia with lower urinary tract symptoms Category: Medical Qualifiers: Lower urinary tract symptom detail: incomplete bladder emptying Qualified Code(s): N40.1 - Benign prostatic hyperplasia with lower urinary tract symptoms; R39.14 - Feeling of incomplete bladder emptying (3) Elevated PSA: Code(s): R97.20 - Elevated prostate specific antigen [PSA] Category: Medical Plan Plan 1.8 ng/mL. Continue reduction of finasteride every other day. Trial cessation of tamsulosin, monitor for symptom change. Follow-up arranged in one year unless earlier symptoms reoccur. Maintain immunotherapy for Good syndrome as managed by other specialists.: Discussion Notes I discussed with the patient the stability of his lower urinary tract symptoms and PSA level. We considered the potential discontinuation of tamsulosin to reduce medication dependency, explaining any recurrence of symptoms would prompt a quick reinitiation within three days. The risks and benefits of reducing finasteride intake were reviewed, with current satisfaction and no adverse effects noted. I emphasized the experimental approach to finding the minimal effective treatment, aligning with optimizing his management plan. A follow-up was scheduled for one year, and the patient should contact me should any issues arise. Patient Instructions - Continue taking finasteride every other day. - Consider stopping tamsulosin; restart if symptoms worsen within three days. - Monitor for changes in urinary symptoms. - Contact me if any issues arise before the next annual follow-up. - Undergo routine infusion treatments as planned for your immune condition. - Plan for a repeat PSA blood test prior to the next visit. Orders: Orders Prostate Specific Antigen 12 Months N40.1 - Benign prostatic hyperplasia with lower urinary tract symptoms, R39.14 - Feeling of incomplete bladder emptying AMB Urinalysis Automated Today Z13.9 - Encounter for screening, unspecified Patient Instructions: This note is constructed using voice recognition software. While every effort has been made to ensure accuracy airline pilot errors may have been included. Imaging studies, laboratory and physical exam results were discussed and reviewed in detail. No major barriers to patient understanding were identified. An opportunity to ask questions regarding the treatment plan was provided. All questions were answered. The patient expressed understanding and agreement with the above treatment plan. The patient is aware they should contact our office by phone for worsening of their current condition or the appearance of new urologic symptoms. Compliance is encouraged with any medications and followup testing that is ordered. It is a privilege to participate in the urologic care of your patient. If you have any questions or concerns regarding treatment for the above conditions, or other urologic issues, please do not hesitate to contact me. The office telephone contact is [phone]. Sincerely, Dr Raghav Atkinson MD, [facility] - Urology Compassionate Specialist Care for the Genitourinary System Coding Level of Care Code Est Pt Level 3 (63649) Diagnoses Incomplete emptying of bladder R33.9 Benign prostatic hyperplasia with incomplete bladder emptying N40.1; R39.14 Lower urinary tract symptom detail: incomplete bladder emptying Elevated PSA R97.20
== END 2024-07-16 10:14 | disposition home or self-care (01) ==
LOC: HO.HUSH 09:36
PROVIDERS: PCP Internal Medicine; Visit Provider Urology
DX: R33.9 Retention of urine, unspecified (principal); N40.1 Benign prostatic hyperplasia with lower urinary tract symptoms; R39.14 Feeling of incomplete bladder emptying; R97.20 Elevated prostate specific antigen [PSA]; Z13.9 Encounter for screening, unspecified
CPT/HCPCS: 99213

== ENCOUNTER → 2024-07-16 09:36 | Outpatient (BNVA) | payer MEDICARE, OTHER, SELFPAY | PROVIDERS: PCP Internal Medicine; Visit Provider Urology | DX: N40.1 Benign prostatic hyperplasia with lower urinary tract symptoms (principal); R33.9 Retention of urine, unspecified; R39.14 Feeling of incomplete bladder emptying | CPT/HCPCS: 81003; 99212 ==